=== PATIENT | female | born 1955 | race Caucasian/White ===

== ENCOUNTER 2019-07-26 12:36 | Inpatient (IN) | payer MEDICARE, OTHER ==
[~2019-07-26] VITALS: Ht 165.1 cm; Wt 122.0 kg
--- OUTSIDE RECORDS SUMMARY | 2019-07-26 12:40 | XMS REPORT ---
Author Author [facility] Organization [facility] Address Unknown Phone Unavailable Care Team Providers Care Driller Multiple Spindle Name Role Phone Unavailable Unavailable Payers Payer Name Policy Type Policy Number Effective Date Expiration D ate Problems This patient has no known problems. Allergies, Adverse Reactions, Alerts Allergy Name Allergy Type Status Severity Reaction(s) Onset Date Inacti ve Date Treating Clinician Comments sulfamethoxazole DA Active SV 2019-05-05 00:00:00 trimethoprim DA Active SV 2019-05-05 00:00:00 No Known Allergies DA Active U 2019-05-03 00:00:00 Medications This patient has no known medications. Encounters Start Date/Time End Date/Time [facility] ID 2019-01-05 06:54:00 2019-01-05 06:54:00 Outpatient [facility] [id number] Results Test Description Test Time Test Comments Text Results Atomic Results Result Comments CBC W/MANUAL DIFF 2019-05-11 03:50:00 WHITE BLOOD CELL (test code = WBC) 10.2 K/mm3 4.5-12.5 RED BLOOD CELL (test code = RBC) 3.76 mill/mm3 3.7-5.2 HEMOGLOBIN (test code = HGB) 8.7 gram/dL 11.5-15.5 HEMATOCRIT (test code = HCT) 29.8 % 36.0-46.0 MEAN CELL VOLUME (test code = MCV) 79.3 fL 80-98 MEAN CELL HGB (test code = MCH) 23.1 picogram 27.0-33.0 MEAN CELL HGB CONCETRATION (test code = MCHC) 29.2 gram/dL 33 .0-36.0 RED CELL DISTRIBUTION WIDTH (test code = RDW) 18.4 % 11 .6-16.2 RED CELL DISTRIBUTION WIDTH SD (test code = RDW-SD) 51.4 fL 37.0-51.0 PLATELET COUNT (test code = PLT) 310 K/mm3 150-450 RESULT VERIFIED BY REPEAT ANALYSIS MEAN PLATELET VOLUME (test code = MPV) 10.4 fL 6.7-11.0 IMMATURE GRANULOCYTE % (test code = IG%) 7.2 % 0.0-5.0 "The appearance of immature granulocytes (myelocytes,pro-myelocytes, meta-myelocytes) in the peripheral blood ofnon- individuals can indicate a response toinfection, inflammation, or other stimulus to the bonemarrow" NUCLEATED RBC % (test code = NRBC%) 0.0 % 0-0 NEUTROPHIL # (test code = NT#) 6.60 K/mm3 1.8-7.7 IMMATURE GRANULOCYTE # (test code = IG#) 0.74 x10 3/uL 0-0.03 LYMPHOCYTE # (test code = LY#) 1.52 K/mm3 1.0-5.0 MONOCYTE # (test code = MO#) 0.97 K/mm3 0-0.8 EOSINOPHIL # (test code = EO#) 0.36 K/mm3 0.0-0.5 BASOPHIL # (test code = BA#) 0.03 K/mm3 0.0-0.2 NUCLEATED RBC # (test code = NRBC#) 0.00 K/mm3 0.0-0.1 MANUAL DIFF REQUIRED (test code = MDIFF) YES STAIN ACCEPTABILITY (test code = STN ACCEPTABLE) STAIN ACCEPTABL E TOTAL CELLS COUNTED (test code = TCC) 114 #CELLS SEGMENTED NEUTROPHILS (test code = SEG) 72.8 % 39-69 BAND NEUTROPHIL (test code = BAND) 0 % 0-10 LYMPHOCYTE (test code = LYMPH) 14.0 % 25-55 REACTIVE LYMPH (test code = RELYMPH) 1.8 % MONOCYTE (test code = MON) 6.1 % 0-10 EOSINOPHIL (test code = EOS) 2.6 % 0.0-5.0 BASOPHIL (test code = BASO) 0.9 % 0-1.0 METAMYELOCYTE (test code = META) 0.9 % 0-0 MYELOCYTE (test code = MYELO) 0.9 % 0.0-0.0 PROMYELOCYTE (test code = PROM) 0 % 0-0 MORPHOLOGY COMMENT (test code = MOC) NORMAL PLATELET ESTIMATE (test code = PLTEST) ADEQUATE PLATELET MORPHOLOGY (test code = PLTMORPH) NORMAL IMMATURE FORMS (test code = IMMAT) 0 % 0-0 BASIC METABOLIC [id number] 03:30:00* Test Item Value Reference Range Comments SODIUM (test code = NA) 142 mmol/L 136-145 POTASSIUM (test code = K) 4.5 mmol/L 3.5-5.1 CHLORIDE (test code = CL) 109.0 mmol/L 98-107 CARBON DIOXIDE (test code = CO2) 25.0 mmol/L 21-32 ANION GAP (test code = GAP) 12.5 10-20 GLUCOSE (test code = GLU) 96 mg/dL 74-106 BLOOD UREA NITROGEN (test code = BUN) 46 mg/dL 7-18 GLOMERULAR FILTRATION RATE (test code = GFR) 25 mL/min >=6 0 Estimated GFR by using Modified MDRD formula.Chronic kidney disease is defined as either kidney damageor GFR <60 mL/min/1.73 m2 for >3 months. CREATININE (test code = CREAT) 2.00 mg/dL 0.55-1.02 * *Note change in reference range due to change in reagent. BUN/CREATININE RATIO (test code = BUN/CREA) 23.0 10-2 0 CALCIUM (test code = CA) 9.1 mg/dL 8.5-10.1 [id number] 03:30:00* Test Item Value Reference Range Comments PHOSPHORUS (test code = PHOS) 3.1 mg/dL 2.5-4.9 [id number] 03:30:00* Test Item Value Reference Range Comments MAGNESIUM (test code = MAG) 2.4 mg/dL 1.8-2.4 CALCIUM [id number] 03:30:00* Test Item Value Reference Range Comments CALCIUM IONIZED (test code = MINDY) 1.27 mmol/L 1.12-1.32 BASIC METABOLIC [id number] 03:26:00* Test Item Value Reference Range Comments SODIUM (test code = NA) 142 mmol/L 136-145 POTASSIUM (test code = K) 4.5 mmol/L 3.5-5.1 CHLORIDE (test code = CL) 109.0 mmol/L 98-107 CARBON DIOXIDE (test code = CO2) mmol/L 21-32 ANION GAP (test code = GAP) 10-20 GLUCOSE (test code = GLU) mg/dL 74-106 BLOOD UREA NITROGEN (test code = BUN) mg/dL 7-18 GLOMERULAR FILTRATION RATE (test code = GFR) mL/min >=6 0 CREATININE (test code = CREAT) mg/dL 0.55-1.02 BUN/CREATININE RATIO (test code = BUN/CREA) 10-2 0 CALCIUM (test code = CA) mg/dL 8.5-10.1 [id number] 03:26:00* Test Item Value Reference Range Comments PHOSPHORUS (test code = PHOS) mg/dL 2.5-4.9 [id number] 03:26:00* Test Item Value Reference Range Comments MAGNESIUM (test code = MAG) mg/dL 1.8-2.4 CALCIUM [id number] 03:26:00* Test Item Value Reference Range Comments CALCIUM IONIZED (test code = MINDY) 1.27 mmol/L 1.12-1.32 CBC W/MANUAL [id number] 03:24:00* Test Item Value Reference Range Comments WHITE BLOOD CELL (test code = WBC) 10.2 K/mm3 4.5-12.5 RED BLOOD CELL (test code = RBC) 3.76 mill/mm3 3.7-5.2 HEMOGLOBIN (test code = HGB) 8.7 gram/dL 11.5-15.5 HEMATOCRIT (test code = HCT) 29.8 % 36.0-46.0 MEAN CELL VOLUME (test code = MCV) 79.3 fL 80-98 MEAN CELL HGB (test code = MCH) 23.1 picogram 27.0-33.0 MEAN CELL HGB CONCETRATION (test code = MCHC) 29.2 gram/dL 33 .0-36.0 RED CELL DISTRIBUTION WIDTH (test code = RDW) 18.4 % 11 .6-16.2 RED CELL DISTRIBUTION WIDTH SD (test code = RDW-SD) 51.4 fL 37.0-51.0 PLATELET COUNT (test code = PLT) 310 K/mm3 150-450 RESULT VERIFIED BY REPEAT ANALYSIS MEAN PLATELET VOLUME (test code = MPV) 10.4 fL 6.7-11.0 IMMATURE GRANULOCYTE % (test code = IG%) 7.2 % 0.0-5.0 "The appearance of immature granulocytes (myelocytes,pro-myelocytes, meta-myelocytes) in the peripheral blood ofnon- individuals can indicate a response toinfection, inflammation, or other stimulus to the bonemarrow" NUCLEATED RBC % (test code = NRBC%) 0.0 % 0-0 NEUTROPHIL # (test code = NT#) 6.60 K/mm3 1.8-7.7 IMMATURE GRANULOCYTE # (test code = IG#) 0.74 x10 3/uL 0-0.03 LYMPHOCYTE # (test code = LY#) 1.52 K/mm3 1.0-5.0 MONOCYTE # (test code = MO#) 0.97 K/mm3 0-0.8 EOSINOPHIL # (test code = EO#) 0.36 K/mm3 0.0-0.5 BASOPHIL # (test code = BA#) 0.03 K/mm3 0.0-0.2 NUCLEATED RBC # (test code = NRBC#) 0.00 K/mm3 0.0-0.1 MANUAL DIFF REQUIRED (test code = MDIFF) YES STAIN ACCEPTABILITY (test code = STN ACCEPTABLE) TOTAL CELLS COUNTED (test code = TCC) #CELLS SEGMENTED NEUTROPHILS (test code = SEG) % 39-69 LYMPHOCYTE (test code = LYMPH) % 25-55 MONOCYTE (test code = MON) % 0-10 EOSINOPHIL (test code = EOS) % 0.0-5.0 CABOT RINGS (test code = CAB) MORPHOLOGY COMMENT (test code = MOC) PLATELET ESTIMATE (test code = PLTEST) PLATELET MORPHOLOGY (test code = PLTMORPH) CBC W/MANUAL [id number] 03:24:00* Test Item Value Reference Range Comments WHITE BLOOD CELL (test code = WBC) 10.2 K/mm3 4.5-12.5 RED BLOOD CELL (test code = RBC) 3.76 mill/mm3 3.7-5.2 HEMOGLOBIN (test code = HGB) 8.7 gram/dL 11.5-15.5 HEMATOCRIT (test code = HCT) 29.8 % 36.0-46.0 MEAN CELL VOLUME (test code = MCV) 79.3 fL 80-98 MEAN CELL HGB (test code = MCH) 23.1 picogram 27.0-33.0 MEAN CELL HGB CONCETRATION (test code = MCHC) 29.2 gram/dL 33 .0-36.0 RED CELL DISTRIBUTION WIDTH (test code = RDW) 18.4 % 11 .6-16.2 RED CELL DISTRIBUTION WIDTH SD (test code = RDW-SD) 51.4 fL 37.0-51.0 PLATELET COUNT (test code = PLT) 310 K/mm3 150-450 RESULT VERIFIED BY REPEAT ANALYSIS MEAN PLATELET VOLUME (test code = MPV) 10.4 fL 6.7-11.0 IMMATURE GRANULOCYTE % (test code = IG%) 7.2 % 0.0-5.0 "The appearance of immature granulocytes (myelocytes,pro-myelocytes, meta-myelocytes) in the peripheral blood ofnon- individuals can indicate a response toinfection, inflammation, or other stimulus to the bonemarrow" NUCLEATED RBC % (test code = NRBC%) 0.0 % 0-0 NEUTROPHIL # (test code = NT#) 6.60 K/mm3 1.8-7.7 IMMATURE GRANULOCYTE # (test code = IG#) 0.74 x10 3/uL 0-0.03 LYMPHOCYTE # (test code = LY#) 1.52 K/mm3 1.0-5.0 MONOCYTE # (test code = MO#) 0.97 K/mm3 0-0.8 EOSINOPHIL # (test code = EO#) 0.36 K/mm3 0.0-0.5 BASOPHIL # (test code = BA#) 0.03 K/mm3 0.0-0.2 NUCLEATED RBC # (test code = NRBC#) 0.00 K/mm3 0.0-0.1 MANUAL DIFF REQUIRED (test code = MDIFF) YES STAIN ACCEPTABILITY (test code = STN ACCEPTABLE) TOTAL CELLS COUNTED (test code = TCC) #CELLS SEGMENTED NEUTROPHILS (test code = SEG) % 39-69 LYMPHOCYTE (test code = LYMPH) % 25-55 MONOCYTE (test code = MON) % 0-10 EOSINOPHIL (test code = EOS) % 0.0-5.0 CABOT RINGS (test code = CAB) MORPHOLOGY COMMENT (test code = MOC) PLATELET ESTIMATE (test code = PLTEST) PLATELET MORPHOLOGY (test code = PLTMORPH) CBC W/MANUAL [id number] 03:24:00* Test Item Value Reference Range Comments WHITE BLOOD CELL (test code = WBC) 10.2 K/mm3 4.5-12.5 RED BLOOD CELL (test code = RBC) 3.76 mill/mm3 3.7-5.2 HEMOGLOBIN (test code = HGB) 8.7 gram/dL 11.5-15.5 HEMATOCRIT (test code = HCT) 29.8 % 36.0-46.0 MEAN CELL VOLUME (test code = MCV) 79.3 fL 80-98 MEAN CELL HGB (test code = MCH) 23.1 picogram 27.0-33.0 MEAN CELL HGB CONCETRATION (test code = MCHC) 29.2 gram/dL 33 .0-36.0 RED CELL DISTRIBUTION WIDTH (test code = RDW) 18.4 % 11 .6-16.2 RED CELL DISTRIBUTION WIDTH SD (test code = RDW-SD) 51.4 fL 37.0-51.0 PLATELET COUNT (test code = PLT) 310 K/mm3 150-450 RESULT VERIFIED BY REPEAT ANALYSIS MEAN PLATELET VOLUME (test code = MPV) 10.4 fL 6.7-11.0 IMMATURE GRANULOCYTE % (test code = IG%) 7.2 % 0.0-5.0 "The appearance of immature granulocytes (myelocytes,pro-myelocytes, meta-myelocytes) in the peripheral blood ofnon- individuals can indicate a response toinfection, inflammation, or other stimulus to the bonemarrow" NUCLEATED RBC % (test code = NRBC%) 0.0 % 0-0 NEUTROPHIL # (test code = NT#) 6.60 K/mm3 1.8-7.7 IMMATURE GRANULOCYTE # (test code = IG#) 0.74 x10 3/uL 0-0.03 LYMPHOCYTE # (test code = LY#) 1.52 K/mm3 1.0-5.0 MONOCYTE # (test code = MO#) 0.97 K/mm3 0-0.8 EOSINOPHIL # (test code = EO#) 0.36 K/mm3 0.0-0.5 BASOPHIL # (test code = BA#) 0.03 K/mm3 0.0-0.2 NUCLEATED RBC # (test code = NRBC#) 0.00 K/mm3 0.0-0.1 MANUAL DIFF REQUIRED (test code = MDIFF) YES STAIN ACCEPTABILITY (test code = STN ACCEPTABLE) TOTAL CELLS COUNTED (test code = TCC) #CELLS SEGMENTED NEUTROPHILS (test code = SEG) % 39-69 LYMPHOCYTE (test code = LYMPH) % 25-55 MONOCYTE (test code = MON) % 0-10 EOSINOPHIL (test code = EOS) % 0.0-5.0 MORPHOLOGY COMMENT (test code = MOC) PLATELET ESTIMATE (test code = PLTEST) PLATELET MORPHOLOGY (test code = PLTMORPH) CBC W/MANUAL [id number] 03:24:00* Test Item Value Reference Range Comments WHITE BLOOD CELL (test code = WBC) 10.2 K/mm3 4.5-12.5 RED BLOOD CELL (test code = RBC) 3.76 mill/mm3 3.7-5.2 HEMOGLOBIN (test code = HGB) 8.7 gram/dL 11.5-15.5 HEMATOCRIT (test code = HCT) 29.8 % 36.0-46.0 MEAN CELL VOLUME (test code = MCV) 79.3 fL 80-98 MEAN CELL HGB (test code = MCH) 23.1 picogram 27.0-33.0 MEAN CELL HGB CONCETRATION (test code = MCHC) 29.2 gram/dL 33 .0-36.0 RED CELL DISTRIBUTION WIDTH (test code = RDW) 18.4 % 11 .6-16.2 RED CELL DISTRIBUTION WIDTH SD (test code = RDW-SD) 51.4 fL 37.0-51.0 PLATELET COUNT (test code = PLT) 310 K/mm3 150-450 RESULT VERIFIED BY REPEAT ANALYSIS MEAN PLATELET VOLUME (test code = MPV) 10.4 fL 6.7-11.0 IMMATURE GRANULOCYTE % (test code = IG%) 7.2 % 0.0-5.0 "The appearance of immature granulocytes (myelocytes,pro-myelocytes, meta-myelocytes) in the peripheral blood ofnon- individuals can indicate a response toinfection, inflammation, or other stimulus to the bonemarrow" NUCLEATED RBC % (test code = NRBC%) 0.0 % 0-0 NEUTROPHIL # (test code = NT#) 6.60 K/mm3 1.8-7.7 IMMATURE GRANULOCYTE # (test code = IG#) 0.74 x10 3/uL 0-0.03 LYMPHOCYTE # (test code = LY#) 1.52 K/mm3 1.0-5.0 MONOCYTE # (test code = MO#) 0.97 K/mm3 0-0.8 EOSINOPHIL # (test code = EO#) 0.36 K/mm3 0.0-0.5 BASOPHIL # (test code = BA#) 0.03 K/mm3 0.0-0.2 NUCLEATED RBC # (test code = NRBC#) 0.00 K/mm3 0.0-0.1 MANUAL DIFF REQUIRED (test code = MDIFF) YES STAIN ACCEPTABILITY (test code = STN ACCEPTABLE) TOTAL CELLS COUNTED (test code = TCC) #CELLS SEGMENTED NEUTROPHILS (test code = SEG) % 39-69 LYMPHOCYTE (test code = LYMPH) % 25-55 MONOCYTE (test code = MON) % 0-10 MORPHOLOGY COMMENT (test code = MOC) PLATELET ESTIMATE (test code = PLTEST) PLATELET MORPHOLOGY (test code = PLTMORPH) CBC W/MANUAL [id number] 03:24:00* Test Item Value Reference Range Comments WHITE BLOOD CELL (test code = WBC) 10.2 K/mm3 4.5-12.5 RED BLOOD CELL (test code = RBC) 3.76 mill/mm3 3.7-5.2 HEMOGLOBIN (test code = HGB) 8.7 gram/dL 11.5-15.5 HEMATOCRIT (test code = HCT) 29.8 % 36.0-46.0 MEAN CELL VOLUME (test code = MCV) 79.3 fL 80-98 MEAN CELL HGB (test code = MCH) 23.1 picogram 27.0-33.0 MEAN CELL HGB CONCETRATION (test code = MCHC) 29.2 gram/dL 33 .0-36.0 RED CELL DISTRIBUTION WIDTH (test code = RDW) 18.4 % 11 .6-16.2 RED CELL DISTRIBUTION WIDTH SD (test code = RDW-SD) 51.4 fL 37.0-51.0 PLATELET COUNT (test code = PLT) 310 K/mm3 150-450 RESULT VERIFIED BY REPEAT ANALYSIS MEAN PLATELET VOLUME (test code = MPV) 10.4 fL 6.7-11.0 IMMATURE GRANULOCYTE % (test code = IG%) 7.2 % 0.0-5.0 "The appearance of immature granulocytes (myelocytes,pro-myelocytes, meta-myelocytes) in the peripheral blood ofnon- individuals can indicate a response toinfection, inflammation, or other stimulus to the bonemarrow" NUCLEATED RBC % (test code = NRBC%) 0.0 % 0-0 NEUTROPHIL # (test code = NT#) 6.60 K/mm3 1.8-7.7 IMMATURE GRANULOCYTE # (test code = IG#) 0.74 x10 3/uL 0-0.03 LYMPHOCYTE # (test code = LY#) 1.52 K/mm3 1.0-5.0 MONOCYTE # (test code = MO#) 0.97 K/mm3 0-0.8 EOSINOPHIL # (test code = EO#) 0.36 K/mm3 0.0-0.5 BASOPHIL # (test code = BA#) 0.03 K/mm3 0.0-0.2 NUCLEATED RBC # (test code = NRBC#) 0.00 K/mm3 0.0-0.1 MANUAL DIFF REQUIRED (test code = MDIFF) YES STAIN ACCEPTABILITY (test code = STN ACCEPTABLE) TOTAL CELLS COUNTED (test code = TCC) #CELLS SEGMENTED NEUTROPHILS (test code = SEG) % 39-69 LYMPHOCYTE (test code = LYMPH) % 25-55 MONOCYTE (test code = MON) % 0-10 EOSINOPHIL (test code = EOS) % 0.0-5.0 CABOT RINGS (test code = CAB) MORPHOLOGY COMMENT (test code = MOC) PLATELET ESTIMATE (test code = PLTEST) PLATELET MORPHOLOGY (test code = PLTMORPH) BASIC METABOLIC [id number] 03:20:00* Test Item Value Reference Range Comments SODIUM (test code = NA) mmol/L 136-145 POTASSIUM (test code = K) mmol/L 3.5-5.1 CHLORIDE (test code = CL) mmol/L 98-107 CARBON DIOXIDE (test code = CO2) mmol/L 21-32 ANION GAP (test code = GAP) 10-20 GLUCOSE (test code = GLU) mg/dL 74-106 BLOOD UREA NITROGEN (test code = BUN) mg/dL 7-18 GLOMERULAR FILTRATION RATE (test code = GFR) mL/min >=6 0 CREATININE (test code = CREAT) mg/dL 0.55-1.02 BUN/CREATININE RATIO (test code = BUN/CREA) 10-2 0 CALCIUM (test code = CA) mg/dL 8.5-10.1 [id number] 03:20:00* Test Item Value Reference Range Comments PHOSPHORUS (test code = PHOS) mg/dL 2.5-4.9 [id number] 03:20:00* Test Item Value Reference Range Comments MAGNESIUM (test code = MAG) mg/dL 1.8-2.4 CALCIUM [id number] 03:20:00* Test Item Value Reference Range Comments CALCIUM IONIZED (test code = MINDY) 1.27 mmol/L 1.12-1.32 CBC W/AUTO [id number] 04:02:00* Test Item Value Reference Range Comments WHITE BLOOD CELL (test code = WBC) 9.3 K/mm3 4.5-12.5 RED BLOOD CELL (test code = RBC) 3.84 mill/mm3 3.7-5.2 HEMOGLOBIN (test code = HGB) 8.9 gram/dL 11.5-15.5 HEMATOCRIT (test code = HCT) 30.2 % 36.0-46.0 MEAN CELL VOLUME (test code = MCV) 78.6 fL 80-98 MEAN CELL HGB (test code = MCH) 23.2 picogram 27.0-33.0 MEAN CELL HGB CONCETRATION (test code = MCHC) 29.5 gram/dL 33 .0-36.0 RED CELL DISTRIBUTION WIDTH (test code = RDW) 17.8 % 11 .6-16.2 RED CELL DISTRIBUTION WIDTH SD (test code = RDW-SD) 50.6 fL 37.0-51.0 PLATELET COUNT (test code = PLT) 250 K/mm3 150-450 RESULT VERIFIED BY REPEAT ANALYSIS MEAN PLATELET VOLUME (test code = MPV) 10.9 fL 6.7-11.0 NEUTROPHIL % (test code = NT%) 61.5 % 39.0-69.0 IMMATURE GRANULOCYTE % (test code = IG%) 7.4 % 0.0-5.0 "The appearance of immature granulocytes (myelocytes,pro-myelocytes, meta-myelocytes) in the peripheral blood ofnon- individuals can indicate a response toinfection, inflammation, or other stimulus to the bonemarrow" LYMPHOCYTE % (test code = LY%) 15.3 % 25.0-55.0 MONOCYTE % (test code = MO%) 11.7 % 0.0-10.0 EOSINOPHIL % (test code = EO%) 3.6 % 0.0-5.0 BASOPHIL % (test code = BA%) 0.5 % 0.0-1.0 NUCLEATED RBC % (test code = NRBC%) 0.0 % 0-0 NEUTROPHIL # (test code = NT#) 5.72 K/mm3 1.8-7.7 IMMATURE GRANULOCYTE # (test code = IG#) 0.69 x10 3/uL 0-0.03 LYMPHOCYTE # (test code = LY#) 1.43 K/mm3 1.0-5.0 MONOCYTE # (test code = MO#) 1.09 K/mm3 0-0.8 EOSINOPHIL # (test code = EO#) 0.34 K/mm3 0.0-0.5 BASOPHIL # (test code = BA#) 0.05 K/mm3 0.0-0.2 NUCLEATED RBC # (test code = NRBC#) 0.00 K/mm3 0.0-0.1 MANUAL DIFF REQUIRED (test code = MDIFF) NO, ONLY SCAN NEEDED DIFFERENTIAL [id number] 04:02:00* Test Item Value Reference Range Comments STAIN ACCEPTABILITY (test code = STN ACCEPTABLE) STAIN ACCEPTABL E ANISOCYTOSIS (test code = ANISO) 1+ MICROCYTOSIS (test code = MICR) 1+ MORPHOLOGY COMMENT (test code = MOC) TEST NOT PERFORMED PLATELET ESTIMATE (test code = PLTEST) ADEQUATE PLATELET MORPHOLOGY (test code = PLTMORPH) NORMAL BASIC METABOLIC [id number] 02:53:00* Test Item Value Reference Range Comments SODIUM (test code = NA) 141 mmol/L 136-145 POTASSIUM (test code = K) 4.2 mmol/L 3.5-5.1 CHLORIDE (test code = CL) 107.0 mmol/L 98-107 CARBON DIOXIDE (test code = CO2) 26.0 mmol/L 21-32 ANION GAP (test code = GAP) 12.2 10-20 GLUCOSE (test code = GLU) 106 mg/dL 74-106 BLOOD UREA NITROGEN (test code = BUN) 47 mg/dL 7-18 GLOMERULAR FILTRATION RATE (test code = GFR) 27 mL/min >=6 0 Estimated GFR by using Modified MDRD formula.Chronic kidney disease is defined as either kidney damageor GFR <60 mL/min/1.73 m2 for >3 months. CREATININE (test code = CREAT) 1.90 mg/dL 0.55-1.02 * *Note change in reference range due to change in reagent. BUN/CREATININE RATIO (test code = BUN/CREA) 24.7 10-2 0 CALCIUM (test code = CA) 9.0 mg/dL 8.5-10.1 [id number] 02:53:00* Test Item Value Reference Range Comments PHOSPHORUS (test code = PHOS) 3.2 mg/dL 2.5-4.9 [id number] 02:53:00* Test Item Value Reference Range Comments MAGNESIUM (test code = MAG) 2.4 mg/dL 1.8-2.4 CALCIUM [id number] 02:53:00* Test Item Value Reference Range Comments CALCIUM IONIZED (test code = MINDY) 1.28 mmol/L 1.12-1.32 CBC W/AUTO [id number] 02:52:00* Test Item Value Reference Range Comments WHITE BLOOD CELL (test code = WBC) 9.3 K/mm3 4.5-12.5 RED BLOOD CELL (test code = RBC) 3.84 mill/mm3 3.7-5.2 HEMOGLOBIN (test code = HGB) 8.9 gram/dL 11.5-15.5 HEMATOCRIT (test code = HCT) 30.2 % 36.0-46.0 MEAN CELL VOLUME (test code = MCV) 78.6 fL 80-98 MEAN CELL HGB (test code = MCH) 23.2 picogram 27.0-33.0 MEAN CELL HGB CONCETRATION (test code = MCHC) 29.5 gram/dL 33 .0-36.0 RED CELL DISTRIBUTION WIDTH (test code = RDW) 17.8 % 11 .6-16.2 RED CELL DISTRIBUTION WIDTH SD (test code = RDW-SD) 50.6 fL 37.0-51.0 PLATELET COUNT (test code = PLT) 250 K/mm3 150-450 RESULT VERIFIED BY REPEAT ANALYSIS MEAN PLATELET VOLUME (test code = MPV) 10.9 fL 6.7-11.0 NEUTROPHIL % (test code = NT%) 61.5 % 39.0-69.0 IMMATURE GRANULOCYTE % (test code = IG%) 7.4 % 0.0-5.0 "The appearance of immature granulocytes (myelocytes,pro-myelocytes, meta-myelocytes) in the peripheral blood ofnon- individuals can indicate a response toinfection, inflammation, or other stimulus to the bonemarrow" LYMPHOCYTE % (test code = LY%) 15.3 % 25.0-55.0 MONOCYTE % (test code = MO%) 11.7 % 0.0-10.0 EOSINOPHIL % (test code = EO%) 3.6 % 0.0-5.0 BASOPHIL % (test code = BA%) 0.5 % 0.0-1.0 NUCLEATED RBC % (test code = NRBC%) 0.0 % 0-0 NEUTROPHIL # (test code = NT#) 5.72 K/mm3 1.8-7.7 IMMATURE GRANULOCYTE # (test code = IG#) 0.69 x10 3/uL 0-0.03 LYMPHOCYTE # (test code = LY#) 1.43 K/mm3 1.0-5.0 MONOCYTE # (test code = MO#) 1.09 K/mm3 0-0.8 EOSINOPHIL # (test code = EO#) 0.34 K/mm3 0.0-0.5 BASOPHIL # (test code = BA#) 0.05 K/mm3 0.0-0.2 NUCLEATED RBC # (test code = NRBC#) 0.00 K/mm3 0.0-0.1 MANUAL DIFF REQUIRED (test code = MDIFF) NO, ONLY SCAN NEEDED DIFFERENTIAL [id number] 02:52:00* Test Item Value Reference Range Comments STAIN ACCEPTABILITY (test code = STN ACCEPTABLE) CABOT RINGS (test code = CAB) MORPHOLOGY COMMENT (test code = MOC) PLATELET ESTIMATE (test code = PLTEST) PLATELET MORPHOLOGY (test code = PLTMORPH) CBC W/AUTO [id number] 02:52:00* Test Item Value Reference Range Comments WHITE BLOOD CELL (test code = WBC) 9.3 K/mm3 4.5-12.5 RED BLOOD CELL (test code = RBC) 3.84 mill/mm3 3.7-5.2 HEMOGLOBIN (test code = HGB) 8.9 gram/dL 11.5-15.5 HEMATOCRIT (test code = HCT) 30.2 % 36.0-46.0 MEAN CELL VOLUME (test code = MCV) 78.6 fL 80-98 MEAN CELL HGB (test code = MCH) 23.2 picogram 27.0-33.0 MEAN CELL HGB CONCETRATION (test code = MCHC) 29.5 gram/dL 33 .0-36.0 RED CELL DISTRIBUTION WIDTH (test code = RDW) 17.8 % 11 .6-16.2 RED CELL DISTRIBUTION WIDTH SD (test code = RDW-SD) 50.6 fL 37.0-51.0 PLATELET COUNT (test code = PLT) 250 K/mm3 150-450 RESULT VERIFIED BY REPEAT ANALYSIS MEAN PLATELET VOLUME (test code = MPV) 10.9 fL 6.7-11.0 NEUTROPHIL % (test code = NT%) 61.5 % 39.0-69.0 IMMATURE GRANULOCYTE % (test code = IG%) 7.4 % 0.0-5.0 "The appearance of immature granulocytes (myelocytes,pro-myelocytes, meta-myelocytes) in the peripheral blood ofnon- individuals can indicate a response toinfection, inflammation, or other stimulus to the bonemarrow" LYMPHOCYTE % (test code = LY%) 15.3 % 25.0-55.0 MONOCYTE % (test code = MO%) 11.7 % 0.0-10.0 EOSINOPHIL % (test code = EO%) 3.6 % 0.0-5.0 BASOPHIL % (test code = BA%) 0.5 % 0.0-1.0 NUCLEATED RBC % (test code = NRBC%) 0.0 % 0-0 NEUTROPHIL # (test code = NT#) 5.72 K/mm3 1.8-7.7 IMMATURE GRANULOCYTE # (test code = IG#) 0.69 x10 3/uL 0-0.03 LYMPHOCYTE # (test code = LY#) 1.43 K/mm3 1.0-5.0 MONOCYTE # (test code = MO#) 1.09 K/mm3 0-0.8 EOSINOPHIL # (test code = EO#) 0.34 K/mm3 0.0-0.5 BASOPHIL # (test code = BA#) 0.05 K/mm3 0.0-0.2 NUCLEATED RBC # (test code = NRBC#) 0.00 K/mm3 0.0-0.1 MANUAL DIFF REQUIRED (test code = MDIFF) NO, ONLY SCAN NEEDED DIFFERENTIAL [id number] 02:52:00* Test Item Value Reference Range Comments STAIN ACCEPTABILITY (test code = STN ACCEPTABLE) MORPHOLOGY COMMENT (test code = MOC) PLATELET ESTIMATE (test code = PLTEST) PLATELET MORPHOLOGY (test code = PLTMORPH) CBC W/AUTO [id number] 02:51:00* Test Item Value Reference Range Comments WHITE BLOOD CELL (test code = WBC) 9.3 K/mm3 4.5-12.5 RED BLOOD CELL (test code = RBC) 3.84 mill/mm3 3.7-5.2 HEMOGLOBIN (test code = HGB) 8.9 gram/dL 11.5-15.5 HEMATOCRIT (test code = HCT) 30.2 % 36.0-46.0 MEAN CELL VOLUME (test code = MCV) 78.6 fL 80-98 MEAN CELL HGB (test code = MCH) 23.2 picogram 27.0-33.0 MEAN CELL HGB CONCETRATION (test code = MCHC) 29.5 gram/dL 33 .0-36.0 RED CELL DISTRIBUTION WIDTH (test code = RDW) 17.8 % 11 .6-16.2 RED CELL DISTRIBUTION WIDTH SD (test code = RDW-SD) 50.6 fL 37.0-51.0 PLATELET COUNT (test code = PLT) 250 K/mm3 150-450 RESULT VERIFIED BY REPEAT ANALYSIS MEAN PLATELET VOLUME (test code = MPV) 10.9 fL 6.7-11.0 NEUTROPHIL % (test code = NT%) 61.5 % 39.0-69.0 IMMATURE GRANULOCYTE % (test code = IG%) 7.4 % 0.0-5.0 "The appearance of immature granulocytes (myelocytes,pro-myelocytes, meta-myelocytes) in the peripheral blood ofnon- individuals can indicate a response toinfection, inflammation, or other stimulus to the bonemarrow" LYMPHOCYTE % (test code = LY%) 15.3 % 25.0-55.0 MONOCYTE % (test code = MO%) 11.7 % 0.0-10.0 EOSINOPHIL % (test code = EO%) 3.6 % 0.0-5.0 BASOPHIL % (test code = BA%) 0.5 % 0.0-1.0 NUCLEATED RBC % (test code = NRBC%) 0.0 % 0-0 NEUTROPHIL # (test code = NT#) 5.72 K/mm3 1.8-7.7 IMMATURE GRANULOCYTE # (test code = IG#) 0.69 x10 3/uL 0-0.03 LYMPHOCYTE # (test code = LY#) 1.43 K/mm3 1.0-5.0 MONOCYTE # (test code = MO#) 1.09 K/mm3 0-0.8 EOSINOPHIL # (test code = EO#) 0.34 K/mm3 0.0-0.5 BASOPHIL # (test code = BA#) 0.05 K/mm3 0.0-0.2 NUCLEATED RBC # (test code = NRBC#) 0.00 K/mm3 0.0-0.1 MANUAL DIFF REQUIRED (test code = MDIFF) NO, ONLY SCAN NEEDED DIFFERENTIAL [id number] 02:51:00* Test Item Value Reference Range Comments STAIN ACCEPTABILITY (test code = STN ACCEPTABLE) CABOT RINGS (test code = CAB) MORPHOLOGY COMMENT (test code = MOC) PLATELET ESTIMATE (test code = PLTEST) PLATELET MORPHOLOGY (test code = PLTMORPH) CBC W/AUTO [id number] 02:51:00* Test Item Value Reference Range Comments WHITE BLOOD CELL (test code = WBC) 9.3 K/mm3 4.5-12.5 RED BLOOD CELL (test code = RBC) 3.84 mill/mm3 3.7-5.2 HEMOGLOBIN (test code = HGB) 8.9 gram/dL 11.5-15.5 HEMATOCRIT (test code = HCT) 30.2 % 36.0-46.0 MEAN CELL VOLUME (test code = MCV) 78.6 fL 80-98 MEAN CELL HGB (test code = MCH) 23.2 picogram 27.0-33.0 MEAN CELL HGB CONCETRATION (test code = MCHC) 29.5 gram/dL 33 .0-36.0 RED CELL DISTRIBUTION WIDTH (test code = RDW) 17.8 % 11 .6-16.2 RED CELL DISTRIBUTION WIDTH SD (test code = RDW-SD) 50.6 fL 37.0-51.0 PLATELET COUNT (test code = PLT) 250 K/mm3 150-450 RESULT VERIFIED BY REPEAT ANALYSIS MEAN PLATELET VOLUME (test code = MPV) 10.9 fL 6.7-11.0 NEUTROPHIL % (test code = NT%) 61.5 % 39.0-69.0 IMMATURE GRANULOCYTE % (test code = IG%) 7.4 % 0.0-5.0 "The appearance of immature granulocytes (myelocytes,pro-myelocytes, meta-myelocytes) in the peripheral blood ofnon- individuals can indicate a response toinfection, inflammation, or other stimulus to the bonemarrow" LYMPHOCYTE % (test code = LY%) 15.3 % 25.0-55.0 MONOCYTE % (test code = MO%) 11.7 % 0.0-10.0 EOSINOPHIL % (test code = EO%) 3.6 % 0.0-5.0 BASOPHIL % (test code = BA%) 0.5 % 0.0-1.0 NUCLEATED RBC % (test code = NRBC%) 0.0 % 0-0 NEUTROPHIL # (test code = NT#) 5.72 K/mm3 1.8-7.7 IMMATURE GRANULOCYTE # (test code = IG#) 0.69 x10 3/uL 0-0.03 LYMPHOCYTE # (test code = LY#) 1.43 K/mm3 1.0-5.0 MONOCYTE # (test code = MO#) 1.09 K/mm3 0-0.8 EOSINOPHIL # (test code = EO#) 0.34 K/mm3 0.0-0.5 BASOPHIL # (test code = BA#) 0.05 K/mm3 0.0-0.2 NUCLEATED RBC # (test code = NRBC#) 0.00 K/mm3 0.0-0.1 MANUAL DIFF REQUIRED (test code = MDIFF) NO, ONLY SCAN NEEDED DIFFERENTIAL [id number] 02:51:00* Test Item Value Reference Range Comments STAIN ACCEPTABILITY (test code = STN ACCEPTABLE) CABOT RINGS (test code = CAB) MORPHOLOGY COMMENT (test code = MOC) PLATELET ESTIMATE (test code = PLTEST) PLATELET MORPHOLOGY (test code = PLTMORPH) BASIC METABOLIC [id number] 02:48:00* Test Item Value Reference Range Comments SODIUM (test code = NA) 141 mmol/L 136-145 POTASSIUM (test code = K) 4.2 mmol/L 3.5-5.1 CHLORIDE (test code = CL) 107.0 mmol/L 98-107 CARBON DIOXIDE (test code = CO2) mmol/L 21-32 ANION GAP (test code = GAP) 10-20 GLUCOSE (test code = GLU) mg/dL 74-106 BLOOD UREA NITROGEN (test code = BUN) mg/dL 7-18 GLOMERULAR FILTRATION RATE (test code = GFR) mL/min >=6 0 CREATININE (test code = CREAT) mg/dL 0.55-1.02 BUN/CREATININE RATIO (test code = BUN/CREA) 10-2 0 CALCIUM (test code = CA) mg/dL 8.5-10.1 [id number] 02:48:00* Test Item Value Reference Range Comments PHOSPHORUS (test code = PHOS) mg/dL 2.5-4.9 [id number] 02:48:00* Test Item Value Reference Range Comments MAGNESIUM (test code = MAG) mg/dL 1.8-2.4 CALCIUM [id number] 02:48:00* Test Item Value Reference Range Comments CALCIUM IONIZED (test code = MINDY) 1.28 mmol/L 1.12-1.32 BASIC METABOLIC [id number] 02:36:00* Test Item Value Reference Range Comments SODIUM (test code = NA) mmol/L 136-145 POTASSIUM (test code = K) mmol/L 3.5-5.1 CHLORIDE (test code = CL) mmol/L 98-107 CARBON DIOXIDE (test code = CO2) mmol/L 21-32 ANION GAP (test code = GAP) 10-20 GLUCOSE (test code = GLU) mg/dL 74-106 BLOOD UREA NITROGEN (test code = BUN) mg/dL 7-18 GLOMERULAR FILTRATION RATE (test code = GFR) mL/min >=6 0 CREATININE (test code = CREAT) mg/dL 0.55-1.02 BUN/CREATININE RATIO (test code = BUN/CREA) 10-2 0 CALCIUM (test code = CA) mg/dL 8.5-10.1 [id number] 02:36:00* Test Item Value Reference Range Comments PHOSPHORUS (test code = PHOS) mg/dL 2.5-4.9 [id number] 02:36:00* Test Item Value Reference Range Comments MAGNESIUM (test code = MAG) mg/dL 1.8-2.4 CALCIUM [id number] 02:36:00* Test Item Value Reference Range Comments CALCIUM IONIZED (test code = MINDY) 1.28 mmol/L 1.12-1.32 RENAL FUNCTION [id number] 04:39:00* Test Item Value Reference Range Comments SODIUM (test code = NA) 142 mmol/L 136-145 POTASSIUM (test code = K) 4.0 mmol/L 3.5-5.1 CHLORIDE (test code = CL) 105.0 mmol/L 98-107 CARBON DIOXIDE (test code = CO2) 30.0 mmol/L 21-32 ANION GAP (test code = GAP) 11.0 10-20 GLUCOSE (test code = GLU) 110 mg/dL 74-106 BLOOD UREA NITROGEN (test code = BUN) 51 mg/dL 7-18 CREATININE (test code = CREAT) 2.10 mg/dL 0.55-1.02 * *Note change in reference range due to change in reagent. ALBUMIN (test code = ALB) 2.8 g/dL 3.4-5.0 CALCIUM (test code = CA) 8.6 mg/dL 8.5-10.1 PHOSPHORUS (test code = PHOS) 3.8 mg/dL 2.5-4.9 CALCIUM [id number] 04:39:00* Test Item Value Reference Range Comments CALCIUM IONIZED (test code = MINDY) 1.26 mmol/L 1.12-1.32 CBC W/MANUAL [id number] 04:37:00* Test Item Value Reference Range Comments WHITE BLOOD CELL (test code = WBC) 8.1 K/mm3 4.5-12.5 RED BLOOD CELL (test code = RBC) 4.09 mill/mm3 3.7-5.2 HEMOGLOBIN (test code = HGB) 9.5 gram/dL 11.5-15.5 HEMATOCRIT (test code = HCT) 31.9 % 36.0-46.0 MEAN CELL VOLUME (test code = MCV) 78.0 fL 80-98 MEAN CELL HGB (test code = MCH) 23.2 picogram 27.0-33.0 MEAN CELL HGB CONCETRATION (test code = MCHC) 29.8 gram/dL 33 .0-36.0 RED CELL DISTRIBUTION WIDTH (test code = RDW) 17.6 % 11 .6-16.2 RED CELL DISTRIBUTION WIDTH SD (test code = RDW-SD) 49.4 fL 37.0-51.0 PLATELET COUNT (test code = PLT) 343 K/mm3 150-450 MEAN PLATELET VOLUME (test code = MPV) 10.0 fL 6.7-11.0 NEUTROPHIL % (test code = NT%) 57.5 % 39.0-69.0 IMMATURE GRANULOCYTE % (test code = IG%) 6.6 % 0.0-5.0 "The appearance of immature granulocytes (myelocytes,pro-myelocytes, meta-myelocytes) in the peripheral blood ofnon- individuals can indicate a response toinfection, inflammation, or other stimulus to the bonemarrow" LYMPHOCYTE % (test code = LY%) 18.3 % 25.0-55.0 MONOCYTE % (test code = MO%) 13.4 % 0.0-10.0 EOSINOPHIL % (test code = EO%) 3.8 % 0.0-5.0 BASOPHIL % (test code = BA%) 0.4 % 0.0-1.0 NUCLEATED RBC % (test code = NRBC%) 0.0 % 0-0 NEUTROPHIL # (test code = NT#) 4.67 K/mm3 1.8-7.7 IMMATURE GRANULOCYTE # (test code = IG#) 0.54 x10 3/uL 0-0.03 LYMPHOCYTE # (test code = LY#) 1.49 K/mm3 1.0-5.0 MONOCYTE # (test code = MO#) 1.09 K/mm3 0-0.8 EOSINOPHIL # (test code = EO#) 0.31 K/mm3 0.0-0.5 BASOPHIL # (test code = BA#) 0.03 K/mm3 0.0-0.2 NUCLEATED RBC # (test code = NRBC#) 0.00 K/mm3 0.0-0.1 MANUAL DIFF REQUIRED (test code = MDIFF) DIFF NEEDED STAIN ACCEPTABILITY (test code = STN ACCEPTABLE) STAIN ACCEPTABL E TOTAL CELLS COUNTED (test code = TCC) 114 #CELLS SEGMENTED NEUTROPHILS (test code = SEG) 67.8 % 39-69 BAND NEUTROPHIL (test code = BAND) 0 % 0-10 LYMPHOCYTE (test code = LYMPH) 14.8 % 25-55 REACTIVE LYMPH (test code = RELYMPH) 0 % MONOCYTE (test code = MON) 10.4 % 0-10 EOSINOPHIL (test code = EOS) 2.6 % 0.0-5.0 BASOPHIL (test code = BASO) 0 % 0-1.0 METAMYELOCYTE (test code = META) 0 % 0-0 MYELOCYTE (test code = MYELO) 4.4 % 0.0-0.0 PROMYELOCYTE (test code = PROM) 0 % 0-0 POLYCHROMASIA (test code = POLC) 2+ HYPOCHROMIA (test code = HYPO) 1+ BASOPHILIC STIPPLING (test code = STP) 1+ ANISOCYTOSIS (test code = ANISO) 1+ OVALOCYTES (test code = OVAL) 1+ MORPHOLOGY COMMENT (test code = MOC) TEST NOT PERFORMED PLATELET ESTIMATE (test code = PLTEST) ADEQUATE PLATELET MORPHOLOGY (test code = PLTMORPH) NORMAL IMMATURE FORMS (test code = IMMAT) 0 % 0-0 RENAL FUNCTION [id number] 04:20:00* Test Item Value Reference Range Comments SODIUM (test code = NA) 142 mmol/L 136-145 POTASSIUM (test code = K) 4.0 mmol/L 3.5-5.1 CHLORIDE (test code = CL) 105.0 mmol/L 98-107 CARBON DIOXIDE (test code = CO2) 30.0 mmol/L 21-32 ANION GAP (test code = GAP) 11.0 10-20 GLUCOSE (test code = GLU) 110 mg/dL 74-106 BLOOD UREA NITROGEN (test code = BUN) 51 mg/dL 7-18 CREATININE (test code = CREAT) 2.10 mg/dL 0.55-1.02 * *Note change in reference range due to change in reagent. ALBUMIN (test code = ALB) 2.8 g/dL 3.4-5.0 CALCIUM (test code = CA) 8.6 mg/dL 8.5-10.1 PHOSPHORUS (test code = PHOS) 3.8 mg/dL 2.5-4.9 CALCIUM [id number] 04:20:00* Test Item Value Reference Range Comments CALCIUM IONIZED (test code = MINDY) mmol/L 1.12-1.32 CBC W/MANUAL [id number] 03:50:00* Test Item Value Reference Range Comments WHITE BLOOD CELL (test code = WBC) 8.1 K/mm3 4.5-12.5 RED BLOOD CELL (test code = RBC) 4.09 mill/mm3 3.7-5.2 HEMOGLOBIN (test code = HGB) 9.5 gram/dL 11.5-15.5 HEMATOCRIT (test code = HCT) 31.9 % 36.0-46.0 MEAN CELL VOLUME (test code = MCV) 78.0 fL 80-98 MEAN CELL HGB (test code = MCH) 23.2 picogram 27.0-33.0 MEAN CELL HGB CONCETRATION (test code = MCHC) 29.8 gram/dL 33 .0-36.0 RED CELL DISTRIBUTION WIDTH (test code = RDW) 17.6 % 11 .6-16.2 RED CELL DISTRIBUTION WIDTH SD (test code = RDW-SD) 49.4 fL 37.0-51.0 PLATELET COUNT (test code = PLT) 343 K/mm3 150-450 MEAN PLATELET VOLUME (test code = MPV) 10.0 fL 6.7-11.0 NEUTROPHIL % (test code = NT%) 57.5 % 39.0-69.0 IMMATURE GRANULOCYTE % (test code = IG%) 6.6 % 0.0-5.0 "The appearance of immature granulocytes (myelocytes,pro-myelocytes, meta-myelocytes) in the peripheral blood ofnon- individuals can indicate a response toinfection, inflammation, or other stimulus to the bonemarrow" LYMPHOCYTE % (test code = LY%) 18.3 % 25.0-55.0 MONOCYTE % (test code = MO%) 13.4 % 0.0-10.0 EOSINOPHIL % (test code = EO%) 3.8 % 0.0-5.0 BASOPHIL % (test code = BA%) 0.4 % 0.0-1.0 NUCLEATED RBC % (test code = NRBC%) 0.0 % 0-0 NEUTROPHIL # (test code = NT#) 4.67 K/mm3 1.8-7.7 IMMATURE GRANULOCYTE # (test code = IG#) 0.54 x10 3/uL 0-0.03 LYMPHOCYTE # (test code = LY#) 1.49 K/mm3 1.0-5.0 MONOCYTE # (test code = MO#) 1.09 K/mm3 0-0.8 EOSINOPHIL # (test code = EO#) 0.31 K/mm3 0.0-0.5 BASOPHIL # (test code = BA#) 0.03 K/mm3 0.0-0.2 NUCLEATED RBC # (test code = NRBC#) 0.00 K/mm3 0.0-0.1 MANUAL DIFF REQUIRED (test code = MDIFF) DIFF NEEDED STAIN ACCEPTABILITY (test code = STN ACCEPTABLE) TOTAL CELLS COUNTED (test code = TCC) #CELLS SEGMENTED NEUTROPHILS (test code = SEG) % 39-69 LYMPHOCYTE (test code = LYMPH) % 25-55 MONOCYTE (test code = MON) % 0-10 EOSINOPHIL (test code = EOS) % 0.0-5.0 CABOT RINGS (test code = CAB) MORPHOLOGY COMMENT (test code = MOC) PLATELET ESTIMATE (test code = PLTEST) PLATELET MORPHOLOGY (test code = PLTMORPH) CBC W/MANUAL [id number] 03:50:00* Test Item Value Reference Range Comments WHITE BLOOD CELL (test code = WBC) 8.1 K/mm3 4.5-12.5 RED BLOOD CELL (test code = RBC) 4.09 mill/mm3 3.7-5.2 HEMOGLOBIN (test code = HGB) 9.5 gram/dL 11.5-15.5 HEMATOCRIT (test code = HCT) 31.9 % 36.0-46.0 MEAN CELL VOLUME (test code = MCV) 78.0 fL 80-98 MEAN CELL HGB (test code = MCH) 23.2 picogram 27.0-33.0 MEAN CELL HGB CONCETRATION (test code = MCHC) 29.8 gram/dL 33 .0-36.0 RED CELL DISTRIBUTION WIDTH (test code = RDW) 17.6 % 11 .6-16.2 RED CELL DISTRIBUTION WIDTH SD (test code = RDW-SD) 49.4 fL 37.0-51.0 PLATELET COUNT (test code = PLT) 343 K/mm3 150-450 MEAN PLATELET VOLUME (test code = MPV) 10.0 fL 6.7-11.0 NEUTROPHIL % (test code = NT%) 57.5 % 39.0-69.0 IMMATURE GRANULOCYTE % (test code = IG%) 6.6 % 0.0-5.0 "The appearance of immature granulocytes (myelocytes,pro-myelocytes, meta-myelocytes) in the peripheral blood ofnon- individuals can indicate a response toinfection, inflammation, or other stimulus to the bonemarrow" LYMPHOCYTE % (test code = LY%) 18.3 % 25.0-55.0 MONOCYTE % (test code = MO%) 13.4 % 0.0-10.0 EOSINOPHIL % (test code = EO%) 3.8 % 0.0-5.0 BASOPHIL % (test code = BA%) 0.4 % 0.0-1.0 NUCLEATED RBC % (test code = NRBC%) 0.0 % 0-0 NEUTROPHIL # (test code = NT#) 4.67 K/mm3 1.8-7.7 IMMATURE GRANULOCYTE # (test code = IG#) 0.54 x10 3/uL 0-0.03 LYMPHOCYTE # (test code = LY#) 1.49 K/mm3 1.0-5.0 MONOCYTE # (test code = MO#) 1.09 K/mm3 0-0.8 EOSINOPHIL # (test code = EO#) 0.31 K/mm3 0.0-0.5 BASOPHIL # (test code = BA#) 0.03 K/mm3 0.0-0.2 NUCLEATED RBC # (test code = NRBC#) 0.00 K/mm3 0.0-0.1 MANUAL DIFF REQUIRED (test code = MDIFF) DIFF NEEDED STAIN ACCEPTABILITY (test code = STN ACCEPTABLE) TOTAL CELLS COUNTED (test code = TCC) #CELLS SEGMENTED NEUTROPHILS (test code = SEG) % 39-69 LYMPHOCYTE (test code = LYMPH) % 25-55 MONOCYTE (test code = MON) % 0-10 EOSINOPHIL (test code = EOS) % 0.0-5.0 CABOT RINGS (test code = CAB) MORPHOLOGY COMMENT (test code = MOC) PLATELET ESTIMATE (test code = PLTEST) PLATELET MORPHOLOGY (test code = PLTMORPH) CBC W/MANUAL [id number] 03:50:00* Test Item Value Reference Range Comments WHITE BLOOD CELL (test code = WBC) 8.1 K/mm3 4.5-12.5 RED BLOOD CELL (test code = RBC) 4.09 mill/mm3 3.7-5.2 HEMOGLOBIN (test code = HGB) 9.5 gram/dL 11.5-15.5 HEMATOCRIT (test code = HCT) 31.9 % 36.0-46.0 MEAN CELL VOLUME (test code = MCV) 78.0 fL 80-98 MEAN CELL HGB (test code = MCH) 23.2 picogram 27.0-33.0 MEAN CELL HGB CONCETRATION (test code = MCHC) 29.8 gram/dL 33 .0-36.0 RED CELL DISTRIBUTION WIDTH (test code = RDW) 17.6 % 11 .6-16.2 RED CELL DISTRIBUTION WIDTH SD (test code = RDW-SD) 49.4 fL 37.0-51.0 PLATELET COUNT (test code = PLT) 343 K/mm3 150-450 MEAN PLATELET VOLUME (test code = MPV) 10.0 fL 6.7-11.0 NEUTROPHIL % (test code = NT%) 57.5 % 39.0-69.0 IMMATURE GRANULOCYTE % (test code = IG%) 6.6 % 0.0-5.0 "The appearance of immature granulocytes (myelocytes,pro-myelocytes, meta-myelocytes) in the peripheral blood ofnon- individuals can indicate a response toinfection, inflammation, or other stimulus to the bonemarrow" LYMPHOCYTE % (test code = LY%) 18.3 % 25.0-55.0 MONOCYTE % (test code = MO%) 13.4 % 0.0-10.0 EOSINOPHIL % (test code = EO%) 3.8 % 0.0-5.0 BASOPHIL % (test code = BA%) 0.4 % 0.0-1.0 NUCLEATED RBC % (test code = NRBC%) 0.0 % 0-0 NEUTROPHIL # (test code = NT#) 4.67 K/mm3 1.8-7.7 IMMATURE GRANULOCYTE # (test code = IG#) 0.54 x10 3/uL 0-0.03 LYMPHOCYTE # (test code = LY#) 1.49 K/mm3 1.0-5.0 MONOCYTE # (test code = MO#) 1.09 K/mm3 0-0.8 EOSINOPHIL # (test code = EO#) 0.31 K/mm3 0.0-0.5 BASOPHIL # (test code = BA#) 0.03 K/mm3 0.0-0.2 NUCLEATED RBC # (test code = NRBC#) 0.00 K/mm3 0.0-0.1 MANUAL DIFF REQUIRED (test code = MDIFF) DIFF NEEDED STAIN ACCEPTABILITY (test code = STN ACCEPTABLE) TOTAL CELLS COUNTED (test code = TCC) #CELLS SEGMENTED NEUTROPHILS (test code = SEG) % 39-69 LYMPHOCYTE (test code = LYMPH) % 25-55 MONOCYTE (test code = MON) % 0-10 EOSINOPHIL (test code = EOS) % 0.0-5.0 MORPHOLOGY COMMENT (test code = MOC) PLATELET ESTIMATE (test code = PLTEST) PLATELET MORPHOLOGY (test code = PLTMORPH) CBC W/MANUAL [id number] 03:50:00* Test Item Value Reference Range Comments WHITE BLOOD CELL (test code = WBC) 8.1 K/mm3 4.5-12.5 RED BLOOD CELL (test code = RBC) 4.09 mill/mm3 3.7-5.2 HEMOGLOBIN (test code = HGB) 9.5 gram/dL 11.5-15.5 HEMATOCRIT (test code = HCT) 31.9 % 36.0-46.0 MEAN CELL VOLUME (test code = MCV) 78.0 fL 80-98 MEAN CELL HGB (test code = MCH) 23.2 picogram 27.0-33.0 MEAN CELL HGB CONCETRATION (test code = MCHC) 29.8 gram/dL 33 .0-36.0 RED CELL DISTRIBUTION WIDTH (test code = RDW) 17.6 % 11 .6-16.2 RED CELL DISTRIBUTION WIDTH SD (test code = RDW-SD) 49.4 fL 37.0-51.0 PLATELET COUNT (test code = PLT) 343 K/mm3 150-450 MEAN PLATELET VOLUME (test code = MPV) 10.0 fL 6.7-11.0 NEUTROPHIL % (test code = NT%) 57.5 % 39.0-69.0 IMMATURE GRANULOCYTE % (test code = IG%) 6.6 % 0.0-5.0 "The appearance of immature granulocytes (myelocytes,pro-myelocytes, meta-myelocytes) in the peripheral blood ofnon- individuals can indicate a response toinfection, inflammation, or other stimulus to the bonemarrow" LYMPHOCYTE % (test code = LY%) 18.3 % 25.0-55.0 MONOCYTE % (test code = MO%) 13.4 % 0.0-10.0 EOSINOPHIL % (test code = EO%) 3.8 % 0.0-5.0 BASOPHIL % (test code = BA%) 0.4 % 0.0-1.0 NUCLEATED RBC % (test code = NRBC%) 0.0 % 0-0 NEUTROPHIL # (test code = NT#) 4.67 K/mm3 1.8-7.7 IMMATURE GRANULOCYTE # (test code = IG#) 0.54 x10 3/uL 0-0.03 LYMPHOCYTE # (test code = LY#) 1.49 K/mm3 1.0-5.0 MONOCYTE # (test code = MO#) 1.09 K/mm3 0-0.8 EOSINOPHIL # (test code = EO#) 0.31 K/mm3 0.0-0.5 BASOPHIL # (test code = BA#) 0.03 K/mm3 0.0-0.2 NUCLEATED RBC # (test code = NRBC#) 0.00 K/mm3 0.0-0.1 MANUAL DIFF REQUIRED (test code = MDIFF) DIFF NEEDED STAIN ACCEPTABILITY (test code = STN ACCEPTABLE) TOTAL CELLS COUNTED (test code = TCC) #CELLS SEGMENTED NEUTROPHILS (test code = SEG) % 39-69 LYMPHOCYTE (test code = LYMPH) % 25-55 MONOCYTE (test code = MON) % 0-10 MORPHOLOGY COMMENT (test code = MOC) PLATELET ESTIMATE (test code = PLTEST) PLATELET MORPHOLOGY (test code = PLTMORPH) CBC W/MANUAL [id number] 03:50:00* Test Item Value Reference Range Comments WHITE BLOOD CELL (test code = WBC) 8.1 K/mm3 4.5-12.5 RED BLOOD CELL (test code = RBC) 4.09 mill/mm3 3.7-5.2 HEMOGLOBIN (test code = HGB) 9.5 gram/dL 11.5-15.5 HEMATOCRIT (test code = HCT) 31.9 % 36.0-46.0 MEAN CELL VOLUME (test code = MCV) 78.0 fL 80-98 MEAN CELL HGB (test code = MCH) 23.2 picogram 27.0-33.0 MEAN CELL HGB CONCETRATION (test code = MCHC) 29.8 gram/dL 33 .0-36.0 RED CELL DISTRIBUTION WIDTH (test code = RDW) 17.6 % 11 .6-16.2 RED CELL DISTRIBUTION WIDTH SD (test code = RDW-SD) 49.4 fL 37.0-51.0 PLATELET COUNT (test code = PLT) 343 K/mm3 150-450 MEAN PLATELET VOLUME (test code = MPV) 10.0 fL 6.7-11.0 NEUTROPHIL % (test code = NT%) 57.5 % 39.0-69.0 IMMATURE GRANULOCYTE % (test code = IG%) 6.6 % 0.0-5.0 "The appearance of immature granulocytes (myelocytes,pro-myelocytes, meta-myelocytes) in the peripheral blood ofnon- individuals can indicate a response toinfection, inflammation, or other stimulus to the bonemarrow" LYMPHOCYTE % (test code = LY%) 18.3 % 25.0-55.0 MONOCYTE % (test code = MO%) 13.4 % 0.0-10.0 EOSINOPHIL % (test code = EO%) 3.8 % 0.0-5.0 BASOPHIL % (test code = BA%) 0.4 % 0.0-1.0 NUCLEATED RBC % (test code = NRBC%) 0.0 % 0-0 NEUTROPHIL # (test code = NT#) 4.67 K/mm3 1.8-7.7 IMMATURE GRANULOCYTE # (test code = IG#) 0.54 x10 3/uL 0-0.03 LYMPHOCYTE # (test code = LY#) 1.49 K/mm3 1.0-5.0 MONOCYTE # (test code = MO#) 1.09 K/mm3 0-0.8 EOSINOPHIL # (test code = EO#) 0.31 K/mm3 0.0-0.5 BASOPHIL # (test code = BA#) 0.03 K/mm3 0.0-0.2 NUCLEATED RBC # (test code = NRBC#) 0.00 K/mm3 0.0-0.1 MANUAL DIFF REQUIRED (test code = MDIFF) DIFF NEEDED STAIN ACCEPTABILITY (test code = STN ACCEPTABLE) TOTAL CELLS COUNTED (test code = TCC) #CELLS SEGMENTED NEUTROPHILS (test code = SEG) % 39-69 LYMPHOCYTE (test code = LYMPH) % 25-55 MONOCYTE (test code = MON) % 0-10 EOSINOPHIL (test code = EOS) % 0.0-5.0 CABOT RINGS (test code = CAB) MORPHOLOGY COMMENT (test code = MOC) PLATELET ESTIMATE (test code = PLTEST) PLATELET MORPHOLOGY (test code = PLTMORPH) - XR CHEST 1 [id number] 06:47:00 FAX: Cinda Riggs NP [phone] [place]: B St: ADM FAX: López Landeros II, MD FAX: Chanell Antunez MD [phone] Name: RODRÍGUEZ JENKINS [facility] : 1955 Age/S: 63/F [address] [facility] Unit #: [id number] Loc: [address] [place] [address] Phys: Cinda Riggs NP Acct: [id number] Dis Date: Status: ADM IN ONE #: [phone] Exam Date: 05/08/2019 0115 FAX #: [phone] Reason: sob EXAMS: CPT CODE: [id number] XR CHEST 1 V [id number] REASON FOR EXAM: sob EXAM ORDER DATE: 05/08/2019 5:00 AM Or dering: Cinda Riggs NP Attending:López Landeros II, MD Location: PROCEDURE: - XR CHEST 1 V COMPARISON: 05/07/2019 FINDINGS: Portable AP frontal view of the chest obtained at 1:06 AM shows patchy airspace opacity of the bases. There is no evidence of ef fusion. The heart size is minimally enlarged. Pulmonary vasculatures are m inimally congested. IMPRESSION: Persistent hypoaerated lungs wi th atelectasis of the left base at 0647 Reported and signed by: Baljeet Tobar M.D. CC: Cinda Riggs [employer] MAT INSPECTOR; López Landeros II, MD; Chanell Harry Technologist: Steven Campos RT(R); LINDA JOSE RT(R) Trnscrd Date/Time/By: 05/08/2019 (2270) : By: Juanjose Orig Print D/T : S: 05/08/2019 (5932) PAGE 1 Sig parveen Report CBC W/AUTO [id number] 05:02:00* Test Item Value Reference Range Comments WHITE BLOOD CELL (test code = WBC) 7.8 K/mm3 4.5-12.5 RED BLOOD CELL (test code = RBC) 4.13 mill/mm3 3.7-5.2 HEMOGLOBIN (test code = HGB) 9.7 gram/dL 11.5-15.5 HEMATOCRIT (test code = HCT) 32.5 % 36.0-46.0 MEAN CELL VOLUME (test code = MCV) 78.7 fL 80-98 MEAN CELL HGB (test code = MCH) 23.5 picogram 27.0-33.0 MEAN CELL HGB CONCETRATION (test code = MCHC) 29.8 gram/dL 33 .0-36.0 RED CELL DISTRIBUTION WIDTH (test code = RDW) 17.3 % 11 .6-16.2 RED CELL DISTRIBUTION WIDTH SD (test code = RDW-SD) 48.5 fL 37.0-51.0 PLATELET COUNT (test code = PLT) 366 K/mm3 150-450 RESULT VERIFIED BY REPEAT ANALYSIS MEAN PLATELET VOLUME (test code = MPV) 10.3 fL 6.7-11.0 NEUTROPHIL % (test code = NT%) 65.1 % 39.0-69.0 IMMATURE GRANULOCYTE % (test code = IG%) 3.9 % 0.0-5.0 LYMPHOCYTE % (test code = LY%) 14.3 % 25.0-55.0 MONOCYTE % (test code = MO%) 12.9 % 0.0-10.0 EOSINOPHIL % (test code = EO%) 3.3 % 0.0-5.0 BASOPHIL % (test code = BA%) 0.5 % 0.0-1.0 NUCLEATED RBC % (test code = NRBC%) 0.0 % 0-0 NEUTROPHIL # (test code = NT#) 5.06 K/mm3 1.8-7.7 IMMATURE GRANULOCYTE # (test code = IG#) 0.30 x10 3/uL 0-0.03 LYMPHOCYTE # (test code = LY#) 1.11 K/mm3 1.0-5.0 MONOCYTE # (test code = MO#) 1.00 K/mm3 0-0.8 EOSINOPHIL # (test code = EO#) 0.26 K/mm3 0.0-0.5 BASOPHIL # (test code = BA#) 0.04 K/mm3 0.0-0.2 NUCLEATED RBC # (test code = NRBC#) 0.00 K/mm3 0.0-0.1 MANUAL DIFF REQUIRED (test code = MDIFF) NO, ONLY SCAN NEEDED DIFFERENTIAL [id number] 05:02:00* Test Item Value Reference Range Comments STAIN ACCEPTABILITY (test code = STN ACCEPTABLE) STAIN ACCEPTABL E HYPOCHROMIA (test code = HYPO) 1+ ANISOCYTOSIS (test code = ANISO) 1+ MICROCYTOSIS (test code = MICR) 1+ PLATELET ESTIMATE (test code = PLTEST) ADEQUATE PLATELET MORPHOLOGY (test code = PLTMORPH) NORMAL CBC W/AUTO [id number] 03:37:00* Test Item Value Reference Range Comments WHITE BLOOD CELL (test code = WBC) 7.8 K/mm3 4.5-12.5 RED BLOOD CELL (test code = RBC) 4.13 mill/mm3 3.7-5.2 HEMOGLOBIN (test code = HGB) 9.7 gram/dL 11.5-15.5 HEMATOCRIT (test code = HCT) 32.5 % 36.0-46.0 MEAN CELL VOLUME (test code = MCV) 78.7 fL 80-98 MEAN CELL HGB (test code = MCH) 23.5 picogram 27.0-33.0 MEAN CELL HGB CONCETRATION (test code = MCHC) 29.8 gram/dL 33 .0-36.0 RED CELL DISTRIBUTION WIDTH (test code = RDW) 17.3 % 11 .6-16.2 RED CELL DISTRIBUTION WIDTH SD (test code = RDW-SD) 48.5 fL 37.0-51.0 PLATELET COUNT (test code = PLT) 366 K/mm3 150-450 RESULT VERIFIED BY REPEAT ANALYSIS MEAN PLATELET VOLUME (test code = MPV) 10.3 fL 6.7-11.0 NEUTROPHIL % (test code = NT%) 65.1 % 39.0-69.0 IMMATURE GRANULOCYTE % (test code = IG%) 3.9 % 0.0-5.0 LYMPHOCYTE % (test code = LY%) 14.3 % 25.0-55.0 MONOCYTE % (test code = MO%) 12.9 % 0.0-10.0 EOSINOPHIL % (test code = EO%) 3.3 % 0.0-5.0 BASOPHIL % (test code = BA%) 0.5 % 0.0-1.0 NUCLEATED RBC % (test code = NRBC%) 0.0 % 0-0 NEUTROPHIL # (test code = NT#) 5.06 K/mm3 1.8-7.7 IMMATURE GRANULOCYTE # (test code = IG#) 0.30 x10 3/uL 0-0.03 LYMPHOCYTE # (test code = LY#) 1.11 K/mm3 1.0-5.0 MONOCYTE # (test code = MO#) 1.00 K/mm3 0-0.8 EOSINOPHIL # (test code = EO#) 0.26 K/mm3 0.0-0.5 BASOPHIL # (test code = BA#) 0.04 K/mm3 0.0-0.2 NUCLEATED RBC # (test code = NRBC#) 0.00 K/mm3 0.0-0.1 MANUAL DIFF REQUIRED (test code = MDIFF) NO, ONLY SCAN NEEDED DIFFERENTIAL [id number] 03:37:00* Test Item Value Reference Range Comments STAIN ACCEPTABILITY (test code = STN ACCEPTABLE) CABOT RINGS (test code = CAB) MORPHOLOGY COMMENT (test code = MOC) PLATELET ESTIMATE (test code = PLTEST) PLATELET MORPHOLOGY (test code = PLTMORPH) CBC W/AUTO [id number] 03:37:00* Test Item Value Reference Range Comments WHITE BLOOD CELL (test code = WBC) 7.8 K/mm3 4.5-12.5 RED BLOOD CELL (test code = RBC) 4.13 mill/mm3 3.7-5.2 HEMOGLOBIN (test code = HGB) 9.7 gram/dL 11.5-15.5 HEMATOCRIT (test code = HCT) 32.5 % 36.0-46.0 MEAN CELL VOLUME (test code = MCV) 78.7 fL 80-98 MEAN CELL HGB (test code = MCH) 23.5 picogram 27.0-33.0 MEAN CELL HGB CONCETRATION (test code = MCHC) 29.8 gram/dL 33 .0-36.0 RED CELL DISTRIBUTION WIDTH (test code = RDW) 17.3 % 11 .6-16.2 RED CELL DISTRIBUTION WIDTH SD (test code = RDW-SD) 48.5 fL 37.0-51.0 PLATELET COUNT (test code = PLT) 366 K/mm3 150-450 RESULT VERIFIED BY REPEAT ANALYSIS MEAN PLATELET VOLUME (test code = MPV) 10.3 fL 6.7-11.0 NEUTROPHIL % (test code = NT%) 65.1 % 39.0-69.0 IMMATURE GRANULOCYTE % (test code = IG%) 3.9 % 0.0-5.0 LYMPHOCYTE % (test code = LY%) 14.3 % 25.0-55.0 MONOCYTE % (test code = MO%) 12.9 % 0.0-10.0 EOSINOPHIL % (test code = EO%) 3.3 % 0.0-5.0 BASOPHIL % (test code = BA%) 0.5 % 0.0-1.0 NUCLEATED RBC % (test code = NRBC%) 0.0 % 0-0 NEUTROPHIL # (test code = NT#) 5.06 K/mm3 1.8-7.7 IMMATURE GRANULOCYTE # (test code = IG#) 0.30 x10 3/uL 0-0.03 LYMPHOCYTE # (test code = LY#) 1.11 K/mm3 1.0-5.0 MONOCYTE # (test code = MO#) 1.00 K/mm3 0-0.8 EOSINOPHIL # (test code = EO#) 0.26 K/mm3 0.0-0.5 BASOPHIL # (test code = BA#) 0.04 K/mm3 0.0-0.2 NUCLEATED RBC # (test code = NRBC#) 0.00 K/mm3 0.0-0.1 MANUAL DIFF REQUIRED (test code = MDIFF) NO, ONLY SCAN NEEDED DIFFERENTIAL [id number] 03:37:00* Test Item Value Reference Range Comments STAIN ACCEPTABILITY (test code = STN ACCEPTABLE) CABOT RINGS (test code = CAB) MORPHOLOGY COMMENT (test code = MOC) PLATELET ESTIMATE (test code = PLTEST) PLATELET MORPHOLOGY (test code = PLTMORPH) CBC W/AUTO [id number] 03:37:00* Test Item Value Reference Range Comments WHITE BLOOD CELL (test code = WBC) 7.8 K/mm3 4.5-12.5 RED BLOOD CELL (test code = RBC) 4.13 mill/mm3 3.7-5.2 HEMOGLOBIN (test code = HGB) 9.7 gram/dL 11.5-15.5 HEMATOCRIT (test code = HCT) 32.5 % 36.0-46.0 MEAN CELL VOLUME (test code = MCV) 78.7 fL 80-98 MEAN CELL HGB (test code = MCH) 23.5 picogram 27.0-33.0 MEAN CELL HGB CONCETRATION (test code = MCHC) 29.8 gram/dL 33 .0-36.0 RED CELL DISTRIBUTION WIDTH (test code = RDW) 17.3 % 11 .6-16.2 RED CELL DISTRIBUTION WIDTH SD (test code = RDW-SD) 48.5 fL 37.0-51.0 PLATELET COUNT (test code = PLT) 366 K/mm3 150-450 RESULT VERIFIED BY REPEAT ANALYSIS MEAN PLATELET VOLUME (test code = MPV) 10.3 fL 6.7-11.0 NEUTROPHIL % (test code = NT%) 65.1 % 39.0-69.0 IMMATURE GRANULOCYTE % (test code = IG%) 3.9 % 0.0-5.0 LYMPHOCYTE % (test code = LY%) 14.3 % 25.0-55.0 MONOCYTE % (test code = MO%) 12.9 % 0.0-10.0 EOSINOPHIL % (test code = EO%) 3.3 % 0.0-5.0 BASOPHIL % (test code = BA%) 0.5 % 0.0-1.0 NUCLEATED RBC % (test code = NRBC%) 0.0 % 0-0 NEUTROPHIL # (test code = NT#) 5.06 K/mm3 1.8-7.7 IMMATURE GRANULOCYTE # (test code = IG#) 0.30 x10 3/uL 0-0.03 LYMPHOCYTE # (test code = LY#) 1.11 K/mm3 1.0-5.0 MONOCYTE # (test code = MO#) 1.00 K/mm3 0-0.8 EOSINOPHIL # (test code = EO#) 0.26 K/mm3 0.0-0.5 BASOPHIL # (test code = BA#) 0.04 K/mm3 0.0-0.2 NUCLEATED RBC # (test code = NRBC#) 0.00 K/mm3 0.0-0.1 MANUAL DIFF REQUIRED (test code = MDIFF) NO, ONLY SCAN NEEDED DIFFERENTIAL [id number] 03:37:00* Test Item Value Reference Range Comments STAIN ACCEPTABILITY (test code = STN ACCEPTABLE) MORPHOLOGY COMMENT (test code = MOC) PLATELET ESTIMATE (test code = PLTEST) PLATELET MORPHOLOGY (test code = PLTMORPH) CBC W/AUTO [id number] 03:37:00* Test Item Value Reference Range Comments WHITE BLOOD CELL (test code = WBC) 7.8 K/mm3 4.5-12.5 RED BLOOD CELL (test code = RBC) 4.13 mill/mm3 3.7-5.2 HEMOGLOBIN (test code = HGB) 9.7 gram/dL 11.5-15.5 HEMATOCRIT (test code = HCT) 32.5 % 36.0-46.0 MEAN CELL VOLUME (test code = MCV) 78.7 fL 80-98 MEAN CELL HGB (test code = MCH) 23.5 picogram 27.0-33.0 MEAN CELL HGB CONCETRATION (test code = MCHC) 29.8 gram/dL 33 .0-36.0 RED CELL DISTRIBUTION WIDTH (test code = RDW) 17.3 % 11 .6-16.2 RED CELL DISTRIBUTION WIDTH SD (test code = RDW-SD) 48.5 fL 37.0-51.0 PLATELET COUNT (test code = PLT) 366 K/mm3 150-450 RESULT VERIFIED BY REPEAT ANALYSIS MEAN PLATELET VOLUME (test code = MPV) 10.3 fL 6.7-11.0 NEUTROPHIL % (test code = NT%) 65.1 % 39.0-69.0 IMMATURE GRANULOCYTE % (test code = IG%) 3.9 % 0.0-5.0 LYMPHOCYTE % (test code = LY%) 14.3 % 25.0-55.0 MONOCYTE % (test code = MO%) 12.9 % 0.0-10.0 EOSINOPHIL % (test code = EO%) 3.3 % 0.0-5.0 BASOPHIL % (test code = BA%) 0.5 % 0.0-1.0 NUCLEATED RBC % (test code = NRBC%) 0.0 % 0-0 NEUTROPHIL # (test code = NT#) 5.06 K/mm3 1.8-7.7 IMMATURE GRANULOCYTE # (test code = IG#) 0.30 x10 3/uL 0-0.03 LYMPHOCYTE # (test code = LY#) 1.11 K/mm3 1.0-5.0 MONOCYTE # (test code = MO#) 1.00 K/mm3 0-0.8 EOSINOPHIL # (test code = EO#) 0.26 K/mm3 0.0-0.5 BASOPHIL # (test code = BA#) 0.04 K/mm3 0.0-0.2 NUCLEATED RBC # (test code = NRBC#) 0.00 K/mm3 0.0-0.1 MANUAL DIFF REQUIRED (test code = MDIFF) NO, ONLY SCAN NEEDED DIFFERENTIAL [id number] 03:37:00* Test Item Value Reference Range Comments STAIN ACCEPTABILITY (test code = STN ACCEPTABLE) CABOT RINGS (test code = CAB) MORPHOLOGY COMMENT (test code = MOC) PLATELET ESTIMATE (test code = PLTEST) PLATELET MORPHOLOGY (test code = PLTMORPH) BASIC METABOLIC [id number] 03:35:00* Test Item Value Reference Range Comments SODIUM (test code = NA) 142 mmol/L 136-145 POTASSIUM (test code = K) 3.4 mmol/L 3.5-5.1 CHLORIDE (test code = CL) 104.0 mmol/L 98-107 CARBON DIOXIDE (test code = CO2) 32.0 mmol/L 21-32 ANION GAP (test code = GAP) 9.4 10-20 GLUCOSE (test code = GLU) 119 mg/dL 74-106 BLOOD UREA NITROGEN (test code = BUN) 48 mg/dL 7-18 GLOMERULAR FILTRATION RATE (test code = GFR) 27 mL/min >=6 0 Estimated GFR by using Modified MDRD formula.Chronic kidney disease is defined as either kidney damageor GFR <60 mL/min/1.73 m2 for >3 months. CREATININE (test code = CREAT) 1.90 mg/dL 0.55-1.02 * *Note change in reference range due to change in reagent. BUN/CREATININE RATIO (test code = BUN/CREA) 25.3 10-2 0 CALCIUM (test code = CA) 9.0 mg/dL 8.5-10.1 [id number] 03:35:00* Test Item Value Reference Range Comments PHOSPHORUS (test code = PHOS) 3.6 mg/dL 2.5-4.9 [id number] 03:35:00* Test Item Value Reference Range Comments MAGNESIUM (test code = MAG) 2.2 mg/dL 1.8-2.4 CALCIUM [id number] 03:35:00* Test Item Value Reference Range Comments CALCIUM IONIZED (test code = MINDY) 1.22 mmol/L 1.12-1.32 BASIC METABOLIC [id number] 03:32:00* Test Item Value Reference Range Comments SODIUM (test code = NA) 142 mmol/L 136-145 POTASSIUM (test code = K) 3.4 mmol/L 3.5-5.1 CHLORIDE (test code = CL) 104.0 mmol/L 98-107 CARBON DIOXIDE (test code = CO2) mmol/L 21-32 ANION GAP (test code = GAP) 10-20 GLUCOSE (test code = GLU) mg/dL 74-106 BLOOD UREA NITROGEN (test code = BUN) mg/dL 7-18 GLOMERULAR FILTRATION RATE (test code = GFR) mL/min >=6 0 CREATININE (test code = CREAT) mg/dL 0.55-1.02 BUN/CREATININE RATIO (test code = BUN/CREA) 10-2 0 CALCIUM (test code = CA) mg/dL 8.5-10.1 [id number] 03:32:00* Test Item Value Reference Range Comments PHOSPHORUS (test code = PHOS) mg/dL 2.5-4.9 [id number] 03:32:00* Test Item Value Reference Range Comments MAGNESIUM (test code = MAG) mg/dL 1.8-2.4 CALCIUM [id number] 03:32:00* Test Item Value Reference Range Comments CALCIUM IONIZED (test code = MINDY) 1.22 mmol/L 1.12-1.32 BASIC METABOLIC [id number] 03:29:00* Test Item Value Reference Range Comments SODIUM (test code = NA) 142 mmol/L 136-145 POTASSIUM (test code = K) 3.4 mmol/L 3.5-5.1 CHLORIDE (test code = CL) 104.0 mmol/L 98-107 CARBON DIOXIDE (test code = CO2) mmol/L 21-32 ANION GAP (test code = GAP) 10-20 GLUCOSE (test code = GLU) mg/dL 74-106 BLOOD UREA NITROGEN (test code = BUN) mg/dL 7-18 GLOMERULAR FILTRATION RATE (test code = GFR) mL/min >=6 0 CREATININE (test code = CREAT) mg/dL 0.55-1.02 BUN/CREATININE RATIO (test code = BUN/CREA) 10-2 0 CALCIUM (test code = CA) mg/dL 8.5-10.1 [id number] 03:29:00* Test Item Value Reference Range Comments PHOSPHORUS (test code = PHOS) mg/dL 2.5-4.9 [id number] 03:29:00* Test Item Value Reference Range Comments MAGNESIUM (test code = MAG) mg/dL 1.8-2.4 CALCIUM [id number] 03:29:00* Test Item Value Reference Range Comments CALCIUM IONIZED (test code = MINDY) mmol/L 1.12-1.32 ARTERIAL BLOOD [id number] 11:34:00* Test Item Value Reference Range Comments ARTERIAL BLOOD GAS PH (test code = PHA) 7.35 7.35-7.4 5 ARTERIAL BLOOD GAS PCO2 (test code = PCO2A) 48.9 mm Hg 35-4 5 ARTERIAL BLOOD GAS PO2 (test code = PO2A) 176.8 mmHg 80-100 BICARBONATE TOTAL HCO3 (test code = HCO3) 26.3 mmol/L 23.0-2 7.0 BASE EXCESS (test code = WESLEY) 0.4 mmol/L -3.0-5.0 ABG O2 SATURATION (test code = SATA) 98.9 % 90.0-98.0 ABG TYPE (test code = TYPEA) Arterial FIO2 (test code = FIO2A) 50.0 ABG L/M (test code = L/M) 8.00 L/MIN ABG SITE (test code = SITEA) Rt RADIAL ARTERY MODIFIED ALLENS (test code = MODALL) Yes CHECK PERFORMED HEMATOCRIT (test code = HCT/ABG) 28 % 35-47 TOTAL HGB (test code = THB) 9.4 gram/dL 11.5-15.5 HGB O2 SAT (test code = HBOSAT) 97.7 % 94.00-98.00 CARBOXYHEMOGLOBIN (test code = HOHGBT) 1.1 %totalHg 0.5-1.5 METHEMOGLOBIN (test code = METHGB) 0.1 % 0.0-1.50 O2 CONTENT (test code = O2CT) 13.3 % vol 18.0-22.0 COMPLEMENT [id number] 09:10:00* Test Item Value Reference Range Comments COMPLEMENT C3 (test code = COMC3) mg/dL COMPLEMENT [id number] 09:10:00* Test Item Value Reference Range Comments COMPLEMENT C4 (test code = COMC4) 41 mg/dL 14-44 COMPLEMENT [id number] 09:10:00* Test Item Value Reference Range Comments COMPLEMENT C3 (test code = COMC3) 196 mg/dL 82-167 Performed At: [facility] [address] [place], [place] [id number] Milad Mosley MD Ph:[phone] COMPLEMENT [id number] 09:10:00* Test Item Value Reference Range Comments COMPLEMENT C4 (test code = COMC4) 41 mg/dL 14-44 [id number] 08:08:00* Test Item Value Reference Range Comments GLUBED (test code = GLUBED) 108 mg/dL 74-106 Perf ormed by certified database operator at [facility] - XR CHEST 1 [id number] 06:08:00 FAX: Cinda Riggs NP [phone] [place]: B St: ADM FAX: López Landeros II, MD FAX: Chanell Antunez MD [phone] Name: RODRÍGUEZ JENKINS REENA [facility] : 1955 Age/S: 63/F [address] [facility] Unit #: [id number] [place] [address] Phys: Cinda Riggs NP Acct: [id number] Dis Date: Status: ADM IN ONE #: [phone] Exam Date: 05/07/2019 0516 FAX #: [phone] Reason: sob EXAMS: CPT CODE: [id number] XR CHEST 1 V 86702 CLINICAL HISTO RY: Shortness of breath TECHNIQUE: AP chest x-ray CO MPARISON: Previous day. IMPRESSION: No signifi cant interval change. Lung volumes with bibasilar interstitial opacities and subsegmental atelectasis. No pleural effusion. Cardiomegaly. Ather osclerotic vascular calcification of the thoracic aorta. LOCATION: [facility] Signed by Shanda Cui D.O. on 05/07/2019 at 0608 Repor jolene and signed by: Shanda Cui D.O. CC: Cinda Riggs NP; López Syed II, MD; Chanell Harry Technologist: ISIAH JACOBSON JR; Jennifer Hoover Trnscrd Date/Time/By: 05/07/2019 (06) : By: [email or web address] Orig Print D/T: S: 05/07/2019 (0611) PAGE 1 Signed Report ARTERIAL BLOOD GAS 2019-05-07 04:31:00* Test Item Value Reference Range Comments ARTERIAL BLOOD GAS PH (test code = PHA) 7.32 7.35-7.4 5 ARTERIAL BLOOD GAS PCO2 (test code = PCO2A) 51.8 mm Hg 35-4 5 ARTERIAL BLOOD GAS PO2 (test code = PO2A) < 38.8 mmHg 80-100 Results called to and read back by Mason 04:30 - 05/07/2019; by Sol BICARBONATE TOTAL HCO3 (test code = HCO3) 26.3 mmol/L 23.0-2 7.0 BASE EXCESS (test code = WESLEY) -0.1 mmol/L -3.0-5.0 ABG O2 SATURATION (test code = SATA) 70.0 % 90.0-98.0 ABG TYPE (test code = TYPEA) Arterial FIO2 (test code = FIO2A) 36.0 ABG L/M (test code = L/M) 4.00 L/MIN ABG SITE (test code = SITEA) Rt RADIAL ARTERY MODIFIED ALLENS (test code = MODALL) Yes CHECK PERFORMED HEMATOCRIT (test code = HCT/ABG) 28 % 35-47 TOTAL HGB (test code = THB) 9.5 gram/dL 11.5-15.5 HGB O2 SAT (test code = HBOSAT) 69.2 % 94.00-98.00 CARBOXYHEMOGLOBIN (test code = HOHGBT) 1.0 %totalHg 0.5-1.5 METHEMOGLOBIN (test code = METHGB) 0.2 % 0.0-1.50 CBC W/AUTO [id number] 04:30:00* Test Item Value Reference Range Comments WHITE BLOOD CELL (test code = WBC) 6.7 K/mm3 4.5-12.5 RED BLOOD CELL (test code = RBC) 3.61 mill/mm3 3.7-5.2 HEMOGLOBIN (test code = HGB) 8.4 gram/dL 11.5-15.5 HEMATOCRIT (test code = HCT) 29.2 % 36.0-46.0 MEAN CELL VOLUME (test code = MCV) 80.9 fL 80-98 MEAN CELL HGB (test code = MCH) 23.3 picogram 27.0-33.0 MEAN CELL HGB CONCETRATION (test code = MCHC) 28.8 gram/dL 33 .0-36.0 RED CELL DISTRIBUTION WIDTH (test code = RDW) 17.1 % 11 .6-16.2 RED CELL DISTRIBUTION WIDTH SD (test code = RDW-SD) 50.4 fL 37.0-51.0 PLATELET COUNT (test code = PLT) 293 K/mm3 150-450 MEAN PLATELET VOLUME (test code = MPV) 10.6 fL 6.7-11.0 NEUTROPHIL % (test code = NT%) 70.2 % 39.0-69.0 IMMATURE GRANULOCYTE % (test code = IG%) 2.6 % 0.0-5.0 LYMPHOCYTE % (test code = LY%) 12.6 % 25.0-55.0 MONOCYTE % (test code = MO%) 10.4 % 0.0-10.0 EOSINOPHIL % (test code = EO%) 3.9 % 0.0-5.0 BASOPHIL % (test code = BA%) 0.3 % 0.0-1.0 NUCLEATED RBC % (test code = NRBC%) 0.0 % 0-0 NEUTROPHIL # (test code = NT#) 4.67 K/mm3 1.8-7.7 IMMATURE GRANULOCYTE # (test code = IG#) 0.17 x10 3/uL 0-0.03 LYMPHOCYTE # (test code = LY#) 0.84 K/mm3 1.0-5.0 MONOCYTE # (test code = MO#) 0.69 K/mm3 0-0.8 EOSINOPHIL # (test code = EO#) 0.26 K/mm3 0.0-0.5 BASOPHIL # (test code = BA#) 0.02 K/mm3 0.0-0.2 NUCLEATED RBC # (test code = NRBC#) 0.00 K/mm3 0.0-0.1 MANUAL DIFF REQUIRED (test code = MDIFF) NO, ONLY SCAN NEEDED DIFFERENTIAL [id number] 04:30:00* Test Item Value Reference Range Comments STAIN ACCEPTABILITY (test code = STN ACCEPTABLE) STAIN ACCEPTABL E POLYCHROMASIA (test code = POLC) 1+ HYPOCHROMIA (test code = HYPO) 2+ POIKILOCYTOSIS (test code = POIK) 1+ ANISOCYTOSIS (test code = ANISO) 1+ MICROCYTOSIS (test code = MICR) 1+ ROULEAUX (test code = ROU) SLIGHT PLATELET ESTIMATE (test code = PLTEST) ADEQUATE PLATELET MORPHOLOGY (test code = PLTMORPH) NORMAL BASIC METABOLIC [id number] 04:21:00* Test Item Value Reference Range Comments SODIUM (test code = NA) 137 mmol/L 136-145 RESULT V ERIFIED BY REPEAT ANALYSIS POTASSIUM (test code = K) 3.6 mmol/L 3.5-5.1 CHLORIDE (test code = CL) 104.0 mmol/L 98-107 CARBON DIOXIDE (test code = CO2) 24.0 mmol/L 21-32 ANION GAP (test code = GAP) 12.6 10-20 GLUCOSE (test code = GLU) 471 mg/dL 74-106 BLOOD UREA NITROGEN (test code = BUN) 47 mg/dL 7-18 GLOMERULAR FILTRATION RATE (test code = GFR) 25 mL/min >=6 0 Estimated GFR by using Modified MDRD formula.Chronic kidney disease is defined as either kidney damageor GFR <60 mL/min/1.73 m2 for >3 months. CREATININE (test code = CREAT) 2.00 mg/dL 0.55-1.02 * *Note change in reference range due to change in reagent. BUN/CREATININE RATIO (test code = BUN/CREA) 23.5 10-2 0 CALCIUM (test code = CA) 7.8 mg/dL 8.5-10.1 RENAL FUNCTION [id number] 04:21:00* Test Item Value Reference Range Comments ALBUMIN (test code = ALB) 2.1 g/dL 3.4-5.0 PHOSPHORUS (test code = PHOS) 3.7 mg/dL 2.5-4.9 [id number] 04:21:00* Test Item Value Reference Range Comments MAGNESIUM (test code = MAG) 1.7 mg/dL 1.8-2.4 CALCIUM [id number] 04:21:00* Test Item Value Reference Range Comments CALCIUM IONIZED (test code = MINDY) mmol/L 1.12-1.32 BASIC METABOLIC [id number] 04:21:00* Test Item Value Reference Range Comments SODIUM (test code = NA) 137 mmol/L 136-145 RESULT V ERIFIED BY REPEAT ANALYSIS POTASSIUM (test code = K) 3.6 mmol/L 3.5-5.1 CHLORIDE (test code = CL) 104.0 mmol/L 98-107 CARBON DIOXIDE (test code = CO2) 24.0 mmol/L 21-32 ANION GAP (test code = GAP) 12.6 10-20 GLUCOSE (test code = GLU) 471 mg/dL 74-106 BLOOD UREA NITROGEN (test code = BUN) 47 mg/dL 7-18 GLOMERULAR FILTRATION RATE (test code = GFR) 25 mL/min >=6 0 Estimated GFR by using Modified MDRD formula.Chronic kidney disease is defined as either kidney damageor GFR <60 mL/min/1.73 m2 for >3 months. CREATININE (test code = CREAT) 2.00 mg/dL 0.55-1.02 * *Note change in reference range due to change in reagent. BUN/CREATININE RATIO (test code = BUN/CREA) 23.5 10-2 0 CALCIUM (test code = CA) 7.8 mg/dL 8.5-10.1 RENAL FUNCTION [id number] 04:21:00* Test Item Value Reference Range Comments ALBUMIN (test code = ALB) 2.1 g/dL 3.4-5.0 PHOSPHORUS (test code = PHOS) 3.7 mg/dL 2.5-4.9 [id number] 04:21:00* Test Item Value Reference Range Comments MAGNESIUM (test code = MAG) 1.7 mg/dL 1.8-2.4 CALCIUM [id number] 04:21:00* Test Item Value Reference Range Comments CALCIUM IONIZED (test code = MINDY) 1.22 mmol/L 1.12-1.32 BASIC METABOLIC [id number] 04:10:00* Test Item Value Reference Range Comments SODIUM (test code = NA) 137 mmol/L 136-145 RESULT V ERIFIED BY REPEAT ANALYSIS POTASSIUM (test code = K) 3.6 mmol/L 3.5-5.1 CHLORIDE (test code = CL) 104.0 mmol/L 98-107 CARBON DIOXIDE (test code = CO2) 24.0 mmol/L 21-32 ANION GAP (test code = GAP) 12.6 10-20 GLUCOSE (test code = GLU) 471 mg/dL 74-106 BLOOD UREA NITROGEN (test code = BUN) 47 mg/dL 7-18 GLOMERULAR FILTRATION RATE (test code = GFR) mL/min >=6 0 CREATININE (test code = CREAT) mg/dL 0.55-1.02 BUN/CREATININE RATIO (test code = BUN/CREA) 10-2 0 CALCIUM (test code = CA) 7.8 mg/dL 8.5-10.1 RENAL FUNCTION [id number] 04:10:00* Test Item Value Reference Range Comments ALBUMIN (test code = ALB) 2.1 g/dL 3.4-5.0 PHOSPHORUS (test code = PHOS) mg/dL 2.5-4.9 [id number] 04:10:00* Test Item Value Reference Range Comments MAGNESIUM (test code = MAG) 1.7 mg/dL 1.8-2.4 CALCIUM [id number] 04:10:00* Test Item Value Reference Range Comments CALCIUM IONIZED (test code = MINDY) mmol/L 1.12-1.32 CBC W/AUTO [id number] 03:56:00* Test Item Value Reference Range Comments WHITE BLOOD CELL (test code = WBC) 6.7 K/mm3 4.5-12.5 RED BLOOD CELL (test code = RBC) 3.61 mill/mm3 3.7-5.2 HEMOGLOBIN (test code = HGB) 8.4 gram/dL 11.5-15.5 HEMATOCRIT (test code = HCT) 29.2 % 36.0-46.0 MEAN CELL VOLUME (test code = MCV) 80.9 fL 80-98 MEAN CELL HGB (test code = MCH) 23.3 picogram 27.0-33.0 MEAN CELL HGB CONCETRATION (test code = MCHC) 28.8 gram/dL 33 .0-36.0 RED CELL DISTRIBUTION WIDTH (test code = RDW) 17.1 % 11 .6-16.2 RED CELL DISTRIBUTION WIDTH SD (test code = RDW-SD) 50.4 fL 37.0-51.0 PLATELET COUNT (test code = PLT) 293 K/mm3 150-450 MEAN PLATELET VOLUME (test code = MPV) 10.6 fL 6.7-11.0 NEUTROPHIL % (test code = NT%) 70.2 % 39.0-69.0 IMMATURE GRANULOCYTE % (test code = IG%) 2.6 % 0.0-5.0 LYMPHOCYTE % (test code = LY%) 12.6 % 25.0-55.0 MONOCYTE % (test code = MO%) 10.4 % 0.0-10.0 EOSINOPHIL % (test code = EO%) 3.9 % 0.0-5.0 BASOPHIL % (test code = BA%) 0.3 % 0.0-1.0 NUCLEATED RBC % (test code = NRBC%) 0.0 % 0-0 NEUTROPHIL # (test code = NT#) 4.67 K/mm3 1.8-7.7 IMMATURE GRANULOCYTE # (test code = IG#) 0.17 x10 3/uL 0-0.03 LYMPHOCYTE # (test code = LY#) 0.84 K/mm3 1.0-5.0 MONOCYTE # (test code = MO#) 0.69 K/mm3 0-0.8 EOSINOPHIL # (test code = EO#) 0.26 K/mm3 0.0-0.5 BASOPHIL # (test code = BA#) 0.02 K/mm3 0.0-0.2 NUCLEATED RBC # (test code = NRBC#) 0.00 K/mm3 0.0-0.1 MANUAL DIFF REQUIRED (test code = MDIFF) NO, ONLY SCAN NEEDED DIFFERENTIAL [id number] 03:56:00* Test Item Value Reference Range Comments STAIN ACCEPTABILITY (test code = STN ACCEPTABLE) CABOT RINGS (test code = CAB) MORPHOLOGY COMMENT (test code = MOC) PLATELET ESTIMATE (test code = PLTEST) PLATELET MORPHOLOGY (test code = PLTMORPH) CBC W/AUTO [id number] 03:56:00* Test Item Value Reference Range Comments WHITE BLOOD CELL (test code = WBC) 6.7 K/mm3 4.5-12.5 RED BLOOD CELL (test code = RBC) 3.61 mill/mm3 3.7-5.2 HEMOGLOBIN (test code = HGB) 8.4 gram/dL 11.5-15.5 HEMATOCRIT (test code = HCT) 29.2 % 36.0-46.0 MEAN CELL VOLUME (test code = MCV) 80.9 fL 80-98 MEAN CELL HGB (test code = MCH) 23.3 picogram 27.0-33.0 MEAN CELL HGB CONCETRATION (test code = MCHC) 28.8 gram/dL 33 .0-36.0 RED CELL DISTRIBUTION WIDTH (test code = RDW) 17.1 % 11 .6-16.2 RED CELL DISTRIBUTION WIDTH SD (test code = RDW-SD) 50.4 fL 37.0-51.0 PLATELET COUNT (test code = PLT) 293 K/mm3 150-450 MEAN PLATELET VOLUME (test code = MPV) 10.6 fL 6.7-11.0 NEUTROPHIL % (test code = NT%) 70.2 % 39.0-69.0 IMMATURE GRANULOCYTE % (test code = IG%) 2.6 % 0.0-5.0 LYMPHOCYTE % (test code = LY%) 12.6 % 25.0-55.0 MONOCYTE % (test code = MO%) 10.4 % 0.0-10.0 EOSINOPHIL % (test code = EO%) 3.9 % 0.0-5.0 BASOPHIL % (test code = BA%) 0.3 % 0.0-1.0 NUCLEATED RBC % (test code = NRBC%) 0.0 % 0-0 NEUTROPHIL # (test code = NT#) 4.67 K/mm3 1.8-7.7 IMMATURE GRANULOCYTE # (test code = IG#) 0.17 x10 3/uL 0-0.03 LYMPHOCYTE # (test code = LY#) 0.84 K/mm3 1.0-5.0 MONOCYTE # (test code = MO#) 0.69 K/mm3 0-0.8 EOSINOPHIL # (test code = EO#) 0.26 K/mm3 0.0-0.5 BASOPHIL # (test code = BA#) 0.02 K/mm3 0.0-0.2 NUCLEATED RBC # (test code = NRBC#) 0.00 K/mm3 0.0-0.1 MANUAL DIFF REQUIRED (test code = MDIFF) NO, ONLY SCAN NEEDED DIFFERENTIAL [id number] 03:56:00* Test Item Value Reference Range Comments STAIN ACCEPTABILITY (test code = STN ACCEPTABLE) MORPHOLOGY COMMENT (test code = MOC) PLATELET ESTIMATE (test code = PLTEST) PLATELET MORPHOLOGY (test code = PLTMORPH) CBC W/AUTO [id number] 03:55:00* Test Item Value Reference Range Comments WHITE BLOOD CELL (test code = WBC) 6.7 K/mm3 4.5-12.5 RED BLOOD CELL (test code = RBC) 3.61 mill/mm3 3.7-5.2 HEMOGLOBIN (test code = HGB) 8.4 gram/dL 11.5-15.5 HEMATOCRIT (test code = HCT) 29.2 % 36.0-46.0 MEAN CELL VOLUME (test code = MCV) 80.9 fL 80-98 MEAN CELL HGB (test code = MCH) 23.3 picogram 27.0-33.0 MEAN CELL HGB CONCETRATION (test code = MCHC) 28.8 gram/dL 33 .0-36.0 RED CELL DISTRIBUTION WIDTH (test code = RDW) 17.1 % 11 .6-16.2 RED CELL DISTRIBUTION WIDTH SD (test code = RDW-SD) 50.4 fL 37.0-51.0 PLATELET COUNT (test code = PLT) 293 K/mm3 150-450 MEAN PLATELET VOLUME (test code = MPV) 10.6 fL 6.7-11.0 NEUTROPHIL % (test code = NT%) 70.2 % 39.0-69.0 IMMATURE GRANULOCYTE % (test code = IG%) 2.6 % 0.0-5.0 LYMPHOCYTE % (test code = LY%) 12.6 % 25.0-55.0 MONOCYTE % (test code = MO%) 10.4 % 0.0-10.0 EOSINOPHIL % (test code = EO%) 3.9 % 0.0-5.0 BASOPHIL % (test code = BA%) 0.3 % 0.0-1.0 NUCLEATED RBC % (test code = NRBC%) 0.0 % 0-0 NEUTROPHIL # (test code = NT#) 4.67 K/mm3 1.8-7.7 IMMATURE GRANULOCYTE # (test code = IG#) 0.17 x10 3/uL 0-0.03 LYMPHOCYTE # (test code = LY#) 0.84 K/mm3 1.0-5.0 MONOCYTE # (test code = MO#) 0.69 K/mm3 0-0.8 EOSINOPHIL # (test code = EO#) 0.26 K/mm3 0.0-0.5 BASOPHIL # (test code = BA#) 0.02 K/mm3 0.0-0.2 NUCLEATED RBC # (test code = NRBC#) 0.00 K/mm3 0.0-0.1 MANUAL DIFF REQUIRED (test code = MDIFF) NO, ONLY SCAN NEEDED DIFFERENTIAL [id number] 03:55:00* Test Item Value Reference Range Comments STAIN ACCEPTABILITY (test code = STN ACCEPTABLE) CABOT RINGS (test code = CAB) MORPHOLOGY COMMENT (test code = MOC) PLATELET ESTIMATE (test code = PLTEST) PLATELET MORPHOLOGY (test code = PLTMORPH) CBC W/AUTO [id number] 03:55:00* Test Item Value Reference Range Comments WHITE BLOOD CELL (test code = WBC) 6.7 K/mm3 4.5-12.5 RED BLOOD CELL (test code = RBC) 3.61 mill/mm3 3.7-5.2 HEMOGLOBIN (test code = HGB) 8.4 gram/dL 11.5-15.5 HEMATOCRIT (test code = HCT) 29.2 % 36.0-46.0 MEAN CELL VOLUME (test code = MCV) 80.9 fL 80-98 MEAN CELL HGB (test code = MCH) 23.3 picogram 27.0-33.0 MEAN CELL HGB CONCETRATION (test code = MCHC) 28.8 gram/dL 33 .0-36.0 RED CELL DISTRIBUTION WIDTH (test code = RDW) 17.1 % 11 .6-16.2 RED CELL DISTRIBUTION WIDTH SD (test code = RDW-SD) 50.4 fL 37.0-51.0 PLATELET COUNT (test code = PLT) 293 K/mm3 150-450 MEAN PLATELET VOLUME (test code = MPV) 10.6 fL 6.7-11.0 NEUTROPHIL % (test code = NT%) 70.2 % 39.0-69.0 IMMATURE GRANULOCYTE % (test code = IG%) 2.6 % 0.0-5.0 LYMPHOCYTE % (test code = LY%) 12.6 % 25.0-55.0 MONOCYTE % (test code = MO%) 10.4 % 0.0-10.0 EOSINOPHIL % (test code = EO%) 3.9 % 0.0-5.0 BASOPHIL % (test code = BA%) 0.3 % 0.0-1.0 NUCLEATED RBC % (test code = NRBC%) 0.0 % 0-0 NEUTROPHIL # (test code = NT#) 4.67 K/mm3 1.8-7.7 IMMATURE GRANULOCYTE # (test code = IG#) 0.17 x10 3/uL 0-0.03 LYMPHOCYTE # (test code = LY#) 0.84 K/mm3 1.0-5.0 MONOCYTE # (test code = MO#) 0.69 K/mm3 0-0.8 EOSINOPHIL # (test code = EO#) 0.26 K/mm3 0.0-0.5 BASOPHIL # (test code = BA#) 0.02 K/mm3 0.0-0.2 NUCLEATED RBC # (test code = NRBC#) 0.00 K/mm3 0.0-0.1 MANUAL DIFF REQUIRED (test code = MDIFF) NO, ONLY SCAN NEEDED DIFFERENTIAL [id number] 03:55:00* Test Item Value Reference Range Comments STAIN ACCEPTABILITY (test code = STN ACCEPTABLE) CABOT RINGS (test code = CAB) MORPHOLOGY COMMENT (test code = MOC) PLATELET ESTIMATE (test code = PLTEST) PLATELET MORPHOLOGY (test code = PLTMORPH) - RETRO [id number] 15:20:00 Name: RODRÍGUEZ JENKINS [facility] : 1955 Age/S: 63 / F [address] Unit #: [id number] Loc: [place] [address] Phys: López Landeros II, MD Acct: [id number] Dis Date: Status: ADM IN PHONE #: [phone] Exam Date: 05/06/2019 1145 FAX #: [phone] Reason: acute renal failure EXAMS: CPT CODE: [id number] [facility] [address] HISTORY: Acute renal failure. COMPARISON: CT abdomen and pelvis from May 03, 2019. Location: [facility]. Bilateral renal ultrasound: Both kidneys are hyperechogenic suggesting chronic medical renal disease. Poor visualization of the kidneys due to patient's large body habitus. No hydronephrosis or calyceal stones. Right kidney measured 10.5 x 6.2 x 4.5 cm. Left kidney measured 7.7 x 4 x 3.7 cm. Levi catheter in the urinary bladder which is decompressed and limited. IMPRESSION: Chronic medical renal disease without hydronephrosis or calyceal stones. Decompressed urinary bladder is n ondiagnostic. 20 at 1520 Reported and signed by: Kody Polo M.D. CC: Clay Newell MD; López Landeros II, MD; Chanell Harry Techno logist: PÉREZ HERNANDEZ RT(R),RDMS Trnscb Date/Time: 05/06/2019 (1520) t.[email or web address] Orig Print D/T: S: 05/06/2019 (1523) Probe: PAGE 1 Signed R eport UR SMEAR EOSINOPHIL [id number] 14:25:00 * Test Item Value Reference Range Comments UR SMEAR EOSINOPHIL COUNT (test code = EOSCTU) NONE SEEN per HPF NONE SEEN UR NA,[id number] 14:25:00* Test Item Value Reference Range Comments UR NA,RANDOM (test code = LEONARDO) 92 mmol/L 20-110 UR CREATININE [id number] 14:25:00* Test Item Value Reference Range Comments UR CREATININE RANDOM (test code = CREATU) 45.0 mg/dL 30-125 UR SMEAR EOSINOPHIL [id number] 14:18:00* Test Item Value Reference Range Comments UR SMEAR EOSINOPHIL COUNT (test code = EOSCTU) NONE SEEN per HPF NONE SEEN UR NA,[id number] 14:18:00* Test Item Value Reference Range Comments UR NA,RANDOM (test code = LEONARDO) 92 mmol/L 20-110 UR CREATININE [id number] 14:18:00* Test Item Value Reference Range Comments UR CREATININE RANDOM (test code = CREATU) mg/dL 30-125 UR SMEAR EOSINOPHIL [id number] 13:58:00* Test Item Value Reference Range Comments UR SMEAR EOSINOPHIL COUNT (test code = EOSCTU) NONE SEEN per HPF NONE SEEN UR NA,[id number] 13:58:00* Test Item Value Reference Range Comments UR NA,RANDOM (test code = LEONARDO) mmol/L 20-110 UR CREATININE [id number] 13:58:00* Test Item Value Reference Range Comments UR CREATININE RANDOM (test code = CREATU) mg/dL 30-125 BASIC METABOLIC [id number] 12:23:00* Test Item Value Reference Range Comments SODIUM (test code = NA) 142 mmol/L 136-145 POTASSIUM (test code = K) 4.5 mmol/L 3.5-5.1 CHLORIDE (test code = CL) 112.0 mmol/L 98-107 CARBON DIOXIDE (test code = CO2) 24.0 mmol/L 21-32 ANION GAP (test code = GAP) 10.5 10-20 GLUCOSE (test code = GLU) 118 mg/dL 74-106 BLOOD UREA NITROGEN (test code = BUN) 53 mg/dL 7-18 GLOMERULAR FILTRATION RATE (test code = GFR) 23 mL/min >=6 0 Estimated GFR by using Modified MDRD formula.Chronic kidney disease is defined as either kidney damageor GFR <60 mL/min/1.73 m2 for >3 months. CREATININE (test code = CREAT) 2.20 mg/dL 0.55-1.02 * *Note change in reference range due to change in reagent. BUN/CREATININE RATIO (test code = BUN/CREA) 24.1 10-2 0 CALCIUM (test code = CA) 8.7 mg/dL 8.5-10.1 ARTERIAL BLOOD [id number] 12:19:00* Test Item Value Reference Range Comments ARTERIAL BLOOD GAS PH (test code = PHA) 7.34 7.35-7.4 5 ARTERIAL BLOOD GAS PCO2 (test code = PCO2A) 43.0 mm Hg 35-4 5 ARTERIAL BLOOD GAS PO2 (test code = PO2A) 130.8 mmHg 80-100 BICARBONATE TOTAL HCO3 (test code = HCO3) 22.8 mmol/L 23.0-2 7.0 BASE EXCESS (test code = WESLEY) -2.8 mmol/L -3.0-5.0 ABG O2 SATURATION (test code = SATA) 98.2 % 90.0-98.0 ABG TYPE (test code = TYPEA) Arterial FIO2 (test code = FIO2A) 36.0 ABG L/M (test code = L/M) 4.00 L/MIN ABG SITE (test code = SITEA) Rt RADIAL ARTERY MODIFIED ALLENS (test code = MODALL) Yes CHECK PERFORMED HEMATOCRIT (test code = HCT/ABG) 27 % 35-47 TOTAL HGB (test code = THB) 9.3 gram/dL 11.5-15.5 HGB O2 SAT (test code = HBOSAT) 96.8 % 94.00-98.00 CARBOXYHEMOGLOBIN (test code = HOHGBT) 1.0 %totalHg 0.5-1.5 METHEMOGLOBIN (test code = METHGB) 0.4 % 0.0-1.50 O2 CONTENT (test code = O2CT) 12.9 % vol 18.0-22.0 BASIC METABOLIC [id number] 12:19:00* Test Item Value Reference Range Comments SODIUM (test code = NA) 142 mmol/L 136-145 POTASSIUM (test code = K) 4.5 mmol/L 3.5-5.1 CHLORIDE (test code = CL) 112.0 mmol/L 98-107 CARBON DIOXIDE (test code = CO2) mmol/L 21-32 ANION GAP (test code = GAP) 10-20 GLUCOSE (test code = GLU) mg/dL 74-106 BLOOD UREA NITROGEN (test code = BUN) mg/dL 7-18 GLOMERULAR FILTRATION RATE (test code = GFR) mL/min >=6 0 CREATININE (test code = CREAT) mg/dL 0.55-1.02 BUN/CREATININE RATIO (test code = BUN/CREA) 10-2 0 CALCIUM (test code = CA) mg/dL 8.5-10.1 - XR CHEST 1 [id number] 06:14:00 FAX: Clay Newell MD [phone] [place]: B St: ADM FAX: Cinda Riggs NP [phone] FAX: Chanell Antunez MD [phone] Name: RODRÍGUEZ JENKINS [facility] : 1955 Age/S: 63/F [address] [facility] Unit #: [id number] [facility] [place] [address] Phys: Cinda Riggs NP Acct: [id number] Dis Date: Status: ADM IN ONE #: [phone] Exam Date: 05/06/2019524 FAX #: [phone] Reason: sob EXAMS: CPT CODE: [id number] XR CHEST 1 V 86047 CLINICAL HISTO RY: Shortness of breath TECHNIQUE: AP chest x-ray CO MPARISON: Previous day. IMPRESSION: No signifi cant interval change. Lung volumes with bibasilar interstitial opacities and subsegmental atelectasis. No pleural effusion. Cardiomegaly. Ather osclerotic vascular calcification of the thoracic aorta. LOCATION: LP at 0614 Reported and si gned by: Shanda Cui D.O. CC: Clay Newell MD; Leslie Riggs NP; Chanell Harry Technologist: ISIAH JACOBSON JR Trnscrd Date/Time/By: 05/06/2019 (0614) : By: [email or web address] O rig Print D/T: S: 05/06/2019 (0656) PAGE 1 Signed Report CBC W/AUTO [id number] 03:12:00* Test Item Value Reference Range Comments WHITE BLOOD CELL (test code = WBC) 8.5 K/mm3 4.5-12.5 RED BLOOD CELL (test code = RBC) 3.54 mill/mm3 3.7-5.2 HEMOGLOBIN (test code = HGB) 8.3 gram/dL 11.5-15.5 HEMATOCRIT (test code = HCT) 29.0 % 36.0-46.0 MEAN CELL VOLUME (test code = MCV) 81.9 fL 80-98 MEAN CELL HGB (test code = MCH) 23.4 picogram 27.0-33.0 MEAN CELL HGB CONCETRATION (test code = MCHC) 28.6 gram/dL 33 .0-36.0 RED CELL DISTRIBUTION WIDTH (test code = RDW) 17.1 % 11 .6-16.2 RED CELL DISTRIBUTION WIDTH SD (test code = RDW-SD) 50.9 fL 37.0-51.0 PLATELET COUNT (test code = PLT) 312 K/mm3 150-450 MEAN PLATELET VOLUME (test code = MPV) 10.9 fL 6.7-11.0 IMMATURE GRANULOCYTE % (test code = IG%) 2.8 % 0.0-5.0 NUCLEATED RBC % (test code = NRBC%) 0.2 % 0-0 NEUTROPHIL # (test code = NT#) 6.55 K/mm3 1.8-7.7 IMMATURE GRANULOCYTE # (test code = IG#) 0.24 x10 3/uL 0-0.03 LYMPHOCYTE # (test code = LY#) 0.84 K/mm3 1.0-5.0 MONOCYTE # (test code = MO#) 0.75 K/mm3 0-0.8 EOSINOPHIL # (test code = EO#) 0.08 K/mm3 0.0-0.5 BASOPHIL # (test code = BA#) 0.03 K/mm3 0.0-0.2 NUCLEATED RBC # (test code = NRBC#) 0.02 K/mm3 0.0-0.1 MANUAL DIFF REQUIRED (test code = MDIFF) YES BASIC METABOLIC [id number] 03:06:00* Test Item Value Reference Range Comments SODIUM (test code = NA) 143 mmol/L 136-145 POTASSIUM (test code = K) 5.0 mmol/L 3.5-5.1 CHLORIDE (test code = CL) 112.0 mmol/L 98-107 CARBON DIOXIDE (test code = CO2) 23.0 mmol/L 21-32 ANION GAP (test code = GAP) 13.0 10-20 GLUCOSE (test code = GLU) 116 mg/dL 74-106 BLOOD UREA NITROGEN (test code = BUN) 52 mg/dL 7-18 GLOMERULAR FILTRATION RATE (test code = GFR) 19 mL/min >=6 0 Estimated GFR by using Modified MDRD formula.Chronic kidney disease is defined as either kidney damageor GFR <60 mL/min/1.73 m2 for >3 months. CREATININE (test code = CREAT) 2.50 mg/dL 0.55-1.02 * *Note change in reference range due to change in reagent. BUN/CREATININE RATIO (test code = BUN/CREA) 20.8 10-2 0 CALCIUM (test code = CA) 8.4 mg/dL 8.5-10.1 BASIC METABOLIC [id number] 02:58:00* Test Item Value Reference Range Comments SODIUM (test code = NA) 143 mmol/L 136-145 POTASSIUM (test code = K) 5.0 mmol/L 3.5-5.1 CHLORIDE (test code = CL) 112.0 mmol/L 98-107 CARBON DIOXIDE (test code = CO2) mmol/L 21-32 ANION GAP (test code = GAP) 10-20 GLUCOSE (test code = GLU) mg/dL 74-106 BLOOD UREA NITROGEN (test code = BUN) mg/dL 7-18 GLOMERULAR FILTRATION RATE (test code = GFR) mL/min >=6 0 CREATININE (test code = CREAT) mg/dL 0.55-1.02 BUN/CREATININE RATIO (test code = BUN/CREA) 10-2 0 CALCIUM (test code = CA) mg/dL 8.5-10.1 CBC W/MANUAL [id number] 23:01:00* Test Item Value Reference Range Comments WHITE BLOOD CELL (test code = WBC) 11.9 K/mm3 4.5-12.5 RED BLOOD CELL (test code = RBC) 3.93 mill/mm3 3.7-5.2 HEMOGLOBIN (test code = HGB) 9.1 gram/dL 11.5-15.5 HEMATOCRIT (test code = HCT) 32.6 % 36.0-46.0 MEAN CELL VOLUME (test code = MCV) 83.0 fL 80-98 MEAN CELL HGB (test code = MCH) 23.2 picogram 27.0-33.0 MEAN CELL HGB CONCETRATION (test code = MCHC) 27.9 gram/dL 33 .0-36.0 RED CELL DISTRIBUTION WIDTH (test code = RDW) 17.0 % 11 .6-16.2 RED CELL DISTRIBUTION WIDTH SD (test code = RDW-SD) 51.8 fL 37.0-51.0 PLATELET COUNT (test code = PLT) 354 K/mm3 150-450 MEAN PLATELET VOLUME (test code = MPV) 10.2 fL 6.7-11.0 IMMATURE GRANULOCYTE % (test code = IG%) 2.9 % 0.0-5.0 NUCLEATED RBC % (test code = NRBC%) 0.0 % 0-0 NEUTROPHIL # (test code = NT#) 9.98 K/mm3 1.8-7.7 IMMATURE GRANULOCYTE # (test code = IG#) 0.34 x10 3/uL 0-0.03 LYMPHOCYTE # (test code = LY#) 0.66 K/mm3 1.0-5.0 MONOCYTE # (test code = MO#) 0.85 K/mm3 0-0.8 EOSINOPHIL # (test code = EO#) 0.05 K/mm3 0.0-0.5 BASOPHIL # (test code = BA#) 0.02 K/mm3 0.0-0.2 NUCLEATED RBC # (test code = NRBC#) 0.00 K/mm3 0.0-0.1 MANUAL DIFF REQUIRED (test code = MDIFF) YES STAIN ACCEPTABILITY (test code = STN ACCEPTABLE) STAIN ACCEPTABL E TOTAL CELLS COUNTED (test code = TCC) 115 #CELLS SEGMENTED NEUTROPHILS (test code = SEG) 93.1 % 39-69 BAND NEUTROPHIL (test code = BAND) 0 % 0-10 LYMPHOCYTE (test code = LYMPH) 2.6 % 25-55 REACTIVE LYMPH (test code = RELYMPH) 1.7 % MONOCYTE (test code = MON) 1.7 % 0-10 EOSINOPHIL (test code = EOS) 0.9 % 0.0-5.0 BASOPHIL (test code = BASO) 0 % 0-1.0 METAMYELOCYTE (test code = META) 0 % 0-0 MYELOCYTE (test code = MYELO) 0 % 0.0-0.0 PROMYELOCYTE (test code = PROM) 0 % 0-0 HYPOCHROMIA (test code = HYPO) 1+ POIKILOCYTOSIS (test code = POIK) 1+ ANISOCYTOSIS (test code = ANISO) 1+ MICROCYTOSIS (test code = MICR) 1+ CRENATED CELLS (test code = CREN) 1+ PLATELET ESTIMATE (test code = PLTEST) ADEQUATE PLATELET MORPHOLOGY (test code = PLTMORPH) NORMAL IMMATURE FORMS (test code = IMMAT) 0 % 0-0 PATIENT NOT IN ROOMCOMPREHENSIVE METABOLIC [id number] 22:55:00* Test Item Value Reference Range Comments SODIUM (test code = NA) 140 mmol/L 136-145 POTASSIUM (test code = K) 5.0 mmol/L 3.5-5.1 CHLORIDE (test code = CL) 110.0 mmol/L 98-107 CARBON DIOXIDE (test code = CO2) 23.0 mmol/L 21-32 ANION GAP (test code = GAP) 12.0 10-20 GLUCOSE (test code = GLU) 169 mg/dL 74-106 BLOOD UREA NITROGEN (test code = BUN) 57 mg/dL 7-18 GLOMERULAR FILTRATION RATE (test code = GFR) 19 mL/min >=6 0 Estimated GFR by using Modified MDRD formula.Chronic kidney disease is defined as either kidney damageor GFR <60 mL/min/1.73 m2 for >3 months. CREATININE (test code = CREAT) 2.60 mg/dL 0.55-1.02 * *Note change in reference range due to change in reagent. BUN/CREATININE RATIO (test code = BUN/CREA) 21.9 10-2 0 TOTAL PROTEIN (test code = PROT) 6.9 gram/dL 6.4-8.2 ALBUMIN (test code = ALB) 2.5 g/dL 3.4-5.0 GLOBULIN (test code = GLOB) 4.4 gram/dL 2.7-4.2 ALBUMIN/GLOBULIN RATIO (test code = A/G) 0.6 0.75-1. 50 CALCIUM (test code = CA) 8.6 mg/dL 8.5-10.1 BILIRUBIN TOTAL (test code = BILT) 0.40 mg/dL 0.0-1.0 SGOT/AST (test code = AST) 30 IUnit/L 15-37 SGPT/ALT (test code = ALT) 60 IUnit/L 12-78 ALKALINE PHOSPHATASE TOTAL (test code = ALKP) 128 IUnit/L 45 -117 Note change in reference range due to change in reagent. PATIENT NOT IN ROOMLIPID PROFILE (CORONARY RISK)2019-05-05 22:55:00* Test Item Value Reference Range Comments TRIGLYCERIDES (test code = TRIG) 133 mg/dL 20-150 CHOLESTEROL (test code = CHOL) 148 mg/dL 0-200 CHOLESTEROL/HDL RATIO (test code = CHOLHDL) 3.0 RATIO 0-4. 9 RISK ASSOCIATED WITH CHOL/HDL RATIOS: Risk Male Female1/2 AVERAGE 3.43 3.27AVERAGE 4.97 4.442X AVERAGE 9.55 7.053X AVERAGE 23.39 11.04 REFERENCE VALUE IS RELATED TO RISK LEVELS ASRECOMMENDED BY THE SCARLET. HEART, LUNG, AND BLOOD INST. HDL CHOLESTEROL (test code = HDL) 48 mg/dL 40-60 LIPOPROTEIN LDL (test code = LDL) 77 mg/dL 100-129 Reference Interval: mg/dL mmol/L Optimal <100 <2.6Near/above optimal 100-129 2.6- 3.3Borderline High 130-159 3.4-4.1High 160-189 4.1-4.9Very High >=190 >=4.9========= This LDL result is a direct measurement.========= PATIENT NOT IN [id number] 22:55:00* Test Item Value Reference Range Comments PHOSPHORUS (test code = PHOS) 5.0 mg/dL 2.5-4.9 PATIENT NOT IN ROOMCREATINE KINASE (CK)2019-05-05 22:55:00* Test Item Value Reference Range Comments CREATINE KINASE (CK) (test code = CK) 418 IUnit/L 26-208 PATIENT NOT IN [id number] 22:55:00* Test Item Value Reference Range Comments MAGNESIUM (test code = MAG) 1.9 mg/dL 1.8-2.4 PATIENT NOT IN ROOMCALCIUM [id number] 22:55:00* Test Item Value Reference Range Comments CALCIUM IONIZED (test code = MINDY) 1.26 mmol/L 1.12-1.32 PATIENT NOT IN ROOMLACTIC [id number] 22:49:00* Test Item Value Reference Range Comments LACTIC ACID (test code = LACT) 1.3 mmol/L 0.4-1.9 PATIENT NOT IN ROOMCOMPREHENSIVE METABOLIC [id number] 22:41:00* Test Item Value Reference Range Comments SODIUM (test code = NA) 140 mmol/L 136-145 POTASSIUM (test code = K) 5.0 mmol/L 3.5-5.1 CHLORIDE (test code = CL) 110.0 mmol/L 98-107 CARBON DIOXIDE (test code = CO2) mmol/L 21-32 ANION GAP (test code = GAP) 10-20 GLUCOSE (test code = GLU) mg/dL 74-106 BLOOD UREA NITROGEN (test code = BUN) mg/dL 7-18 GLOMERULAR FILTRATION RATE (test code = GFR) mL/min >=6 0 CREATININE (test code = CREAT) mg/dL 0.55-1.02 BUN/CREATININE RATIO (test code = BUN/CREA) 10-2 0 TOTAL PROTEIN (test code = PROT) gram/dL 6.4-8.2 ALBUMIN (test code = ALB) g/dL 3.4-5.0 GLOBULIN (test code = GLOB) gram/dL 2.7-4.2 ALBUMIN/GLOBULIN RATIO (test code = A/G) 0.75-1. 50 CALCIUM (test code = CA) 8.6 mg/dL 8.5-10.1 BILIRUBIN TOTAL (test code = BILT) mg/dL 0.0-1.0 SGOT/AST (test code = AST) IUnit/L 15-37 SGPT/ALT (test code = ALT) IUnit/L 12-78 ALKALINE PHOSPHATASE TOTAL (test code = ALKP) IUnit/L 45 -117 PATIENT NOT IN ROOMLIPID PROFILE (CORONARY RISK)2019-05-05 22:41:00* Test Item Value Reference Range Comments TRIGLYCERIDES (test code = TRIG) mg/dL 20-150 CHOLESTEROL (test code = CHOL) mg/dL 0-200 CHOLESTEROL/HDL RATIO (test code = CHOLHDL) RATIO 0-4. 9 HDL CHOLESTEROL (test code = HDL) mg/dL 40-60 LIPOPROTEIN LDL (test code = LDL) mg/dL 100-129 PATIENT NOT IN [id number] 22:41:00* Test Item Value Reference Range Comments PHOSPHORUS (test code = PHOS) mg/dL 2.5-4.9 PATIENT NOT IN ROOMCREATINE KINASE (CK)2019-05-05 22:41:00* Test Item Value Reference Range Comments CREATINE KINASE (CK) (test code = CK) IUnit/L 26-208 PATIENT NOT IN [id number] 22:41:00* Test Item Value Reference Range Comments MAGNESIUM (test code = MAG) mg/dL 1.8-2.4 PATIENT NOT IN ROOMCALCIUM [id number] 22:41:00* Test Item Value Reference Range Comments CALCIUM IONIZED (test code = MINDY) 1.26 mmol/L 1.12-1.32 PATIENT NOT IN ROOMCBC W/MANUAL [id number] 22:35:00* Test Item Value Reference Range Comments WHITE BLOOD CELL (test code = WBC) 11.9 K/mm3 4.5-12.5 RED BLOOD CELL (test code = RBC) 3.93 mill/mm3 3.7-5.2 HEMOGLOBIN (test code = HGB) 9.1 gram/dL 11.5-15.5 HEMATOCRIT (test code = HCT) 32.6 % 36.0-46.0 MEAN CELL VOLUME (test code = MCV) 83.0 fL 80-98 MEAN CELL HGB (test code = MCH) 23.2 picogram 27.0-33.0 MEAN CELL HGB CONCETRATION (test code = MCHC) 27.9 gram/dL 33 .0-36.0 RED CELL DISTRIBUTION WIDTH (test code = RDW) 17.0 % 11 .6-16.2 RED CELL DISTRIBUTION WIDTH SD (test code = RDW-SD) 51.8 fL 37.0-51.0 PLATELET COUNT (test code = PLT) 354 K/mm3 150-450 MEAN PLATELET VOLUME (test code = MPV) 10.2 fL 6.7-11.0 IMMATURE GRANULOCYTE % (test code = IG%) 2.9 % 0.0-5.0 NUCLEATED RBC % (test code = NRBC%) 0.0 % 0-0 NEUTROPHIL # (test code = NT#) 9.98 K/mm3 1.8-7.7 IMMATURE GRANULOCYTE # (test code = IG#) 0.34 x10 3/uL 0-0.03 LYMPHOCYTE # (test code = LY#) 0.66 K/mm3 1.0-5.0 MONOCYTE # (test code = MO#) 0.85 K/mm3 0-0.8 EOSINOPHIL # (test code = EO#) 0.05 K/mm3 0.0-0.5 BASOPHIL # (test code = BA#) 0.02 K/mm3 0.0-0.2 NUCLEATED RBC # (test code = NRBC#) 0.00 K/mm3 0.0-0.1 MANUAL DIFF REQUIRED (test code = MDIFF) YES STAIN ACCEPTABILITY (test code = STN ACCEPTABLE) TOTAL CELLS COUNTED (test code = TCC) #CELLS SEGMENTED NEUTROPHILS (test code = SEG) % 39-69 LYMPHOCYTE (test code = LYMPH) % 25-55 MONOCYTE (test code = MON) % 0-10 MORPHOLOGY COMMENT (test code = MOC) PLATELET ESTIMATE (test code = PLTEST) PLATELET MORPHOLOGY (test code = PLTMORPH) PATIENT NOT IN ROOMCOMPREHENSIVE METABOLIC [id number] 22:33:00* Test Item Value Reference Range Comments SODIUM (test code = NA) mmol/L 136-145 POTASSIUM (test code = K) mmol/L 3.5-5.1 CHLORIDE (test code = CL) mmol/L 98-107 CARBON DIOXIDE (test code = CO2) mmol/L 21-32 ANION GAP (test code = GAP) 10-20 GLUCOSE (test code = GLU) mg/dL 74-106 BLOOD UREA NITROGEN (test code = BUN) mg/dL 7-18 GLOMERULAR FILTRATION RATE (test code = GFR) mL/min >=6 0 CREATININE (test code = CREAT) mg/dL 0.55-1.02 BUN/CREATININE RATIO (test code = BUN/CREA) 10-2 0 TOTAL PROTEIN (test code = PROT) gram/dL 6.4-8.2 ALBUMIN (test code = ALB) g/dL 3.4-5.0 GLOBULIN (test code = GLOB) gram/dL 2.7-4.2 ALBUMIN/GLOBULIN RATIO (test code = A/G) 0.75-1. 50 CALCIUM (test code = CA) mg/dL 8.5-10.1 BILIRUBIN TOTAL (test code = BILT) mg/dL 0.0-1.0 SGOT/AST (test code = AST) IUnit/L 15-37 SGPT/ALT (test code = ALT) IUnit/L 12-78 ALKALINE PHOSPHATASE TOTAL (test code = ALKP) IUnit/L 45 -117 PATIENT NOT IN ROOMLIPID PROFILE (CORONARY RISK)2019-05-05 22:33:00* Test Item Value Reference Range Comments TRIGLYCERIDES (test code = TRIG) mg/dL 20-150 CHOLESTEROL (test code = CHOL) mg/dL 0-200 CHOLESTEROL/HDL RATIO (test code = CHOLHDL) RATIO 0-4. 9 HDL CHOLESTEROL (test code = HDL) mg/dL 40-60 LIPOPROTEIN LDL (test code = LDL) mg/dL 100-129 PATIENT NOT IN [id number] 22:33:00* Test Item Value Reference Range Comments PHOSPHORUS (test code = PHOS) mg/dL 2.5-4.9 PATIENT NOT IN ROOMCREATINE KINASE (CK)2019-05-05 22:33:00* Test Item Value Reference Range Comments CREATINE KINASE (CK) (test code = CK) IUnit/L 26-208 PATIENT NOT IN [id number] 22:33:00* Test Item Value Reference Range Comments MAGNESIUM (test code = MAG) mg/dL 1.8-2.4 PATIENT NOT IN ROOMCALCIUM [id number] 22:33:00* Test Item Value Reference Range Comments CALCIUM IONIZED (test code = MINDY) 1.26 mmol/L 1.12-1.32 PATIENT NOT IN ROOMPROTHROMBIN [id number] 22:33:00* Test Item Value Reference Range Comments PROTHROMBIN TIME PATIENT (test code = PTP) 13.3 seconds 9.0-1 4.0 INTERNATIONAL NORMAL RATIO (test code = INR) 1.1 0.8 -1.2 The therapeutic range for oral anticoagulant therapy formost indications is an international normalized ratio (INR)of between 2.0 and 3.0. The recommended therapeutic INRrange for various clinical situations is listed below: Clinical Situation INR range Pulmonary e mbolism treatment (2.0-3.0)Venous thrombosis treatmentVenous thrombosis prophylaxis (high risk surgery)Prevention of systemic embolism from: Acute myocardial infarction Valvular heart disease Atrial fibrillation Mechanical prosthetic heart valves (2.5-3.5) IS PATIENT ON ANTICOAGULANTS? NPATIENT NOT IN ROOMCB W/MANUAL [id number] 22:26:00* Test Item Value Reference Range Comments WHITE BLOOD CELL (test code = WBC) 11.9 K/mm3 4.5-12.5 RED BLOOD CELL (test code = RBC) 3.93 mill/mm3 3.7-5.2 HEMOGLOBIN (test code = HGB) 9.1 gram/dL 11.5-15.5 HEMATOCRIT (test code = HCT) 32.6 % 36.0-46.0 MEAN CELL VOLUME (test code = MCV) 83.0 fL 80-98 MEAN CELL HGB (test code = MCH) 23.2 picogram 27.0-33.0 MEAN CELL HGB CONCETRATION (test code = MCHC) 27.9 gram/dL 33 .0-36.0 RED CELL DISTRIBUTION WIDTH (test code = RDW) 17.0 % 11 .6-16.2 RED CELL DISTRIBUTION WIDTH SD (test code = RDW-SD) 51.8 fL 37.0-51.0 PLATELET COUNT (test code = PLT) 354 K/mm3 150-450 MEAN PLATELET VOLUME (test code = MPV) 10.2 fL 6.7-11.0 IMMATURE GRANULOCYTE % (test code = IG%) 2.9 % 0.0-5.0 NUCLEATED RBC % (test code = NRBC%) 0.0 % 0-0 NEUTROPHIL # (test code = NT#) 9.98 K/mm3 1.8-7.7 IMMATURE GRANULOCYTE # (test code = IG#) 0.34 x10 3/uL 0-0.03 LYMPHOCYTE # (test code = LY#) 0.66 K/mm3 1.0-5.0 MONOCYTE # (test code = MO#) 0.85 K/mm3 0-0.8 EOSINOPHIL # (test code = EO#) 0.05 K/mm3 0.0-0.5 BASOPHIL # (test code = BA#) 0.02 K/mm3 0.0-0.2 NUCLEATED RBC # (test code = NRBC#) 0.00 K/mm3 0.0-0.1 MANUAL DIFF REQUIRED (test code = MDIFF) YES STAIN ACCEPTABILITY (test code = STN ACCEPTABLE) TOTAL CELLS COUNTED (test code = TCC) #CELLS SEGMENTED NEUTROPHILS (test code = SEG) % 39-69 LYMPHOCYTE (test code = LYMPH) % 25-55 MONOCYTE (test code = MON) % 0-10 EOSINOPHIL (test code = EOS) % 0.0-5.0 CABOT RINGS (test code = CAB) MORPHOLOGY COMMENT (test code = MOC) PLATELET ESTIMATE (test code = PLTEST) PLATELET MORPHOLOGY (test code = PLTMORPH) [facility] [id number] 22:26:00* Test Item Value Reference Range Comments WHITE BLOOD CELL (test code = WBC) 11.9 K/mm3 4.5-12.5 RED BLOOD CELL (test code = RBC) 3.93 mill/mm3 3.7-5.2 HEMOGLOBIN (test code = HGB) 9.1 gram/dL 11.5-15.5 HEMATOCRIT (test code = HCT) 32.6 % 36.0-46.0 MEAN CELL VOLUME (test code = MCV) 83.0 fL 80-98 MEAN CELL HGB (test code = MCH) 23.2 picogram 27.0-33.0 MEAN CELL HGB CONCETRATION (test code = MCHC) 27.9 gram/dL 33 .0-36.0 RED CELL DISTRIBUTION WIDTH (test code = RDW) 17.0 % 11 .6-16.2 RED CELL DISTRIBUTION WIDTH SD (test code = RDW-SD) 51.8 fL 37.0-51.0 PLATELET COUNT (test code = PLT) 354 K/mm3 150-450 MEAN PLATELET VOLUME (test code = MPV) 10.2 fL 6.7-11.0 IMMATURE GRANULOCYTE % (test code = IG%) 2.9 % 0.0-5.0 NUCLEATED RBC % (test code = NRBC%) 0.0 % 0-0 NEUTROPHIL # (test code = NT#) 9.98 K/mm3 1.8-7.7 IMMATURE GRANULOCYTE # (test code = IG#) 0.34 x10 3/uL 0-0.03 LYMPHOCYTE # (test code = LY#) 0.66 K/mm3 1.0-5.0 MONOCYTE # (test code = MO#) 0.85 K/mm3 0-0.8 EOSINOPHIL # (test code = EO#) 0.05 K/mm3 0.0-0.5 BASOPHIL # (test code = BA#) 0.02 K/mm3 0.0-0.2 NUCLEATED RBC # (test code = NRBC#) 0.00 K/mm3 0.0-0.1 MANUAL DIFF REQUIRED (test code = MDIFF) YES STAIN ACCEPTABILITY (test code = STN ACCEPTABLE) TOTAL CELLS COUNTED (test code = TCC) #CELLS SEGMENTED NEUTROPHILS (test code = SEG) % 39-69 LYMPHOCYTE (test code = LYMPH) % 25-55 MONOCYTE (test code = MON) % 0-10 EOSINOPHIL (test code = EOS) % 0.0-5.0 CABOT RINGS (test code = CAB) MORPHOLOGY COMMENT (test code = MOC) PLATELET ESTIMATE (test code = PLTEST) PLATELET MORPHOLOGY (test code = PLTMORPH) PATIENT NOT IN ROOMCBC W/MANUAL [id number] 22:26:00* Test Item Value Reference Range Comments WHITE BLOOD CELL (test code = WBC) 11.9 K/mm3 4.5-12.5 RED BLOOD CELL (test code = RBC) 3.93 mill/mm3 3.7-5.2 HEMOGLOBIN (test code = HGB) 9.1 gram/dL 11.5-15.5 HEMATOCRIT (test code = HCT) 32.6 % 36.0-46.0 MEAN CELL VOLUME (test code = MCV) 83.0 fL 80-98 MEAN CELL HGB (test code = MCH) 23.2 picogram 27.0-33.0 MEAN CELL HGB CONCETRATION (test code = MCHC) 27.9 gram/dL 33 .0-36.0 RED CELL DISTRIBUTION WIDTH (test code = RDW) 17.0 % 11 .6-16.2 RED CELL DISTRIBUTION WIDTH SD (test code = RDW-SD) 51.8 fL 37.0-51.0 PLATELET COUNT (test code = PLT) 354 K/mm3 150-450 MEAN PLATELET VOLUME (test code = MPV) 10.2 fL 6.7-11.0 IMMATURE GRANULOCYTE % (test code = IG%) 2.9 % 0.0-5.0 NUCLEATED RBC % (test code = NRBC%) 0.0 % 0-0 NEUTROPHIL # (test code = NT#) 9.98 K/mm3 1.8-7.7 IMMATURE GRANULOCYTE # (test code = IG#) 0.34 x10 3/uL 0-0.03 LYMPHOCYTE # (test code = LY#) 0.66 K/mm3 1.0-5.0 MONOCYTE # (test code = MO#) 0.85 K/mm3 0-0.8 EOSINOPHIL # (test code = EO#) 0.05 K/mm3 0.0-0.5 BASOPHIL # (test code = BA#) 0.02 K/mm3 0.0-0.2 NUCLEATED RBC # (test code = NRBC#) 0.00 K/mm3 0.0-0.1 MANUAL DIFF REQUIRED (test code = MDIFF) YES STAIN ACCEPTABILITY (test code = STN ACCEPTABLE) TOTAL CELLS COUNTED (test code = TCC) #CELLS SEGMENTED NEUTROPHILS (test code = SEG) % 39-69 LYMPHOCYTE (test code = LYMPH) % 25-55 MONOCYTE (test code = MON) % 0-10 EOSINOPHIL (test code = EOS) % 0.0-5.0 MORPHOLOGY COMMENT (test code = MOC) PLATELET ESTIMATE (test code = PLTEST) PLATELET MORPHOLOGY (test code = PLTMORPH) PATIENT NOT IN ROOMCBC W/MANUAL [id number] 22:26:00* Test Item Value Reference Range Comments WHITE BLOOD CELL (test code = WBC) 11.9 K/mm3 4.5-12.5 RED BLOOD CELL (test code = RBC) 3.93 mill/mm3 3.7-5.2 HEMOGLOBIN (test code = HGB) 9.1 gram/dL 11.5-15.5 HEMATOCRIT (test code = HCT) 32.6 % 36.0-46.0 MEAN CELL VOLUME (test code = MCV) 83.0 fL 80-98 MEAN CELL HGB (test code = MCH) 23.2 picogram 27.0-33.0 MEAN CELL HGB CONCETRATION (test code = MCHC) 27.9 gram/dL 33 .0-36.0 RED CELL DISTRIBUTION WIDTH (test code = RDW) 17.0 % 11 .6-16.2 RED CELL DISTRIBUTION WIDTH SD (test code = RDW-SD) 51.8 fL 37.0-51.0 PLATELET COUNT (test code = PLT) 354 K/mm3 150-450 MEAN PLATELET VOLUME (test code = MPV) 10.2 fL 6.7-11.0 IMMATURE GRANULOCYTE % (test code = IG%) 2.9 % 0.0-5.0 NUCLEATED RBC % (test code = NRBC%) 0.0 % 0-0 NEUTROPHIL # (test code = NT#) 9.98 K/mm3 1.8-7.7 IMMATURE GRANULOCYTE # (test code = IG#) 0.34 x10 3/uL 0-0.03 LYMPHOCYTE # (test code = LY#) 0.66 K/mm3 1.0-5.0 MONOCYTE # (test code = MO#) 0.85 K/mm3 0-0.8 EOSINOPHIL # (test code = EO#) 0.05 K/mm3 0.0-0.5 BASOPHIL # (test code = BA#) 0.02 K/mm3 0.0-0.2 NUCLEATED RBC # (test code = NRBC#) 0.00 K/mm3 0.0-0.1 MANUAL DIFF REQUIRED (test code = MDIFF) YES STAIN ACCEPTABILITY (test code = STN ACCEPTABLE) TOTAL CELLS COUNTED (test code = TCC) #CELLS SEGMENTED NEUTROPHILS (test code = SEG) % 39-69 LYMPHOCYTE (test code = LYMPH) % 25-55 MONOCYTE (test code = MON) % 0-10 EOSINOPHIL (test code = EOS) % 0.0-5.0 CABOT RINGS (test code = CAB) MORPHOLOGY COMMENT (test code = MOC) PLATELET ESTIMATE (test code = PLTEST) PLATELET MORPHOLOGY (test code = PLTMORPH) PATIENT NOT IN ROOMARTERIAL BLOOD [id number] 22:10:00* Test Item Value Reference Range Comments ARTERIAL BLOOD GAS PH (test code = PHA) 7.25 7.35-7.4 5 ARTERIAL BLOOD GAS PCO2 (test code = PCO2A) 43.9 mm Hg 35-4 5 ARTERIAL BLOOD GAS PO2 (test code = PO2A) 353.9 mmHg 80-100 BICARBONATE TOTAL HCO3 (test code = HCO3) 18.7 mmol/L 23.0-2 7.0 BASE EXCESS (test code = WESLEY) -8.2 mmol/L -3.0-5.0 Liliana purdy called to and read back by Cydney 22:07 - 05/05/2019; by Jm ABG O2 SATURATION (test code = SATA) 99.5 % 90.0-98.0 ABG TYPE (test code = TYPEA) Arterial FIO2 (test code = FIO2A) 100.0 ABG VENT MODE (test code = MODEA) BiPAP ABG VENT RESP RATE (test code = RRA) 16.0 per min ABG PEEP (test code = PEEPA) 6.0 cmH2O ABG SITE (test code = SITEA) Rt RADIAL ARTERY MODIFIED ALLENS (test code = MODALL) Yes CHECK PERFORMED HEMATOCRIT (test code = HCT/ABG) 31 % 35-47 TOTAL HGB (test code = THB) 10.4 gram/dL 11.5-15.5 HGB O2 SAT (test code = HBOSAT) 98.7 % 94.00-98.00 CARBOXYHEMOGLOBIN (test code = HOHGBT) 0.5 %totalHg 0.5-1.5 METHEMOGLOBIN (test code = METHGB) 0.3 % 0.0-1.50 O2 CONTENT (test code = O2CT) 15.4 % vol 18.0-22.0 - XR CHEST 1 [id number] 21:21:00 FAX: Clay Newell MD [phone] [place]: B St: ADM FAX: Cinda Riggs NP [phone] FAX: Chanell Antunez MD [phone] Name: RODRÍGUEZ JENKINS [facility] : 1955 Age/S: 63/F [address] Unit #: [id number] Loc: [place] [address] Phys: Cinda Riggs NP Acct: [id number] Dis Date: Status: ADM IN PH ONE #: [phone] Exam Date: 05/05/20192042 FAX #: [phone] Reason: SOB, WHEEZING EXAMS: CPT CODE: [id number] XR CHEST 1 V 19112 EXAM: Chest x- ray, one view; INFORMATION: Shortness of breath, wheezing; IMPRESSION: 1. Lungs are slightly better aerated compared with the study obtained earlier today; mild basilar atelectatic changes. 2. Persistent moderate cardiomegaly. Location code: [facility] at 2120 Reported and signed by: Isidoro Jeff M.D. CC: Clay Newell MD; Cinda Riggs NP; Chanell Harry Technologist: SHARI PHILLIPS RT (R); ... Trnscrd Date/Time/By: 05/05/2019 (2120) : By: [email or web address] [email or web address] Orig Print D/T: S: 05/05/2019 (2123) P AGE 1 Signed Report ARTERIAL BLOOD [id number] 20:46:00* Test Item Value Reference Range Comments ARTERIAL BLOOD GAS PH (test code = PHA) 7.18 7.35-7.4 5 Results called to and read back by cydney 20:42 - 05/05/2019; by [email or web address] ARTERIAL BLOOD GAS PCO2 (test code = PCO2A) 55.9 mm Hg 35-4 5 ARTERIAL BLOOD GAS PO2 (test code = PO2A) 39.6 mmHg 80-100 Results called to and read back by cydney 20:42 - 05/05/2019; by [email or web address] BICARBONATE TOTAL HCO3 (test code = HCO3) 20.4 mmol/L 23.0-2 7.0 BASE EXCESS (test code = WESLEY) -8.0 mmol/L -3.0-5.0 Liliana purdy called to and read back by cydney 20:42 - 05/05/2019; by [email or web address] ABG O2 SATURATION (test code = SATA) 64.7 % 90.0-98.0 ABG TYPE (test code = TYPEA) Arterial FIO2 (test code = FIO2A) 100.0 ABG SITE (test code = SITEA) Rt RADIAL ARTERY MODIFIED ALLENS (test code = MODALL) Yes CHECK PERFORMED HEMATOCRIT (test code = HCT/ABG) 31 % 35-47 TOTAL HGB (test code = THB) 10.4 gram/dL 11.5-15.5 HGB O2 SAT (test code = HBOSAT) 63.9 % 94.00-98.00 CARBOXYHEMOGLOBIN (test code = HOHGBT) 1.1 %totalHg 0.5-1.5 METHEMOGLOBIN (test code = METHGB) 0.1 % 0.0-1.50 O2 CONTENT (test code = O2CT) 9.4 % vol 18.0-22.0 [id number] 19:15:00* Test Item Value Reference Range Comments GLYCOSYLATED HEMOGLOBIN (HA1C) (test code = GLYHGB) 5.8 % HbA1 SUGGESTED DIAGNOSIS: HbA1C (%) Diabetic >6.4Prediabetes 5.7 - 6.4Normal <5.7 ESTIMATED AVERAGE GLUCOSE (test code = EAG) 120 MG/DL [id number] 17:19:00 RUN DATE: 05/05/19 [place] - Lab PAGE 1 RUN TIME: 1720 Specimen Inqui ry RUN USER: INTERFACE PATIENT: RODRÍGUEZ JENKINS ACCT #: [id number] LOC: [place] #: [id number] AGE/SX: 63/F ROOM: [facility] RE05/03/19REG DR: Clay Newell MD : 55 BED: A DIS: STATUS: ADM IN TLOC: SPEC #: [id number] RECD: 05/04/19 STATUS: HOWARD RE #: [id number] BART: 05/03/19- SUBM DR: Bjorn Dixon MD ENTERED: 05/04/19 SP TYPE: DEVICE OTHR DR: Chanell Harry MD ORDERED: GROSS COPIES TO: Bjorn Dixon MD [address] [place], [place] [address] Chanell Harry MD [address] [id number] PROCEDURES: GROSS (05/05/19-1339) TISSUES: NO TISSUE - OLD MESH CLINICAL HISTORY COLLECTION DATE: 05/03/19 RECURRENT INCISIONAL HERNIA FINAL DIAGNOSIS Mesh material, removal: DENSE FIBROUS CONNECTIVE TISSUE WITH POLARIZABLE FORE IGN MATERIAL AND PATCHY MILD CHRONIC INFLAMMATION SURGICAL MESH MATERIAL (GROSS IDENTIFICATION) NEGATIVE FOR MALIGNANCY RRB/lani D 27548 MACROSCOPIC The specimen is received in formalin, lab eled with the patient's name, and identified as "old mesh". It consists of colon rd mesh material with some blue suture material within it. The specimen measu res 3.2 x 2.2 x 1.3 cm. On cut section the specimen is gritty and appears to have some yellow silva tissue elements. A sample is submitted for microscopic e xamination in a single CONTINUED ON NEXT PAGE RUN DATE: 05/05/19 [facility] Lab PAGE 2 RUN TIME: 1720 Specimen In quiry RUN USER: INTERFACE SPEC #: [id number] PATIENT: ERIC JENKINS REENA #[id number] (Continued) MACROSCOPI C (Continued) cassette. GROSS PERFORMED AT [facility] [address] [place] [place] [address] [phone] MICROSCOPIC All of the stains, incl uding any controls performed, stain appropriately. MICROSCOPIC PERFORMED AT [facility] [address] [id number] [phone] PERFORMING SITE Diagnosis per formed at: [facility] [place] [address] [place] [address] [phone] Signed SIGNATURE ON FILE Eryn Gandhi MD 05/05/19 171 END OF REPORT [id number] 12:14:00* Test Item Value Reference Range Comments GLUBED (test code = GLUBED) 134 mg/dL 74-106 Perf ormed by certified database operator at [facility] - XR CHEST 1 [id number] 10:59:00 FAX: Clay Newell MD [phone] [place]: St: ADM FAX: Chanell Antunez MD [phone] Name: ALICERODRÍGUEZ [facility] : 1955 Age/S: 63/F [address] [facility] Unit #: [id number] Loc: [id number] [place] [address] Phys: Bjorn Dixon MD Acct: [id number] Dis Date: Status: ADM IN PHONE #: [phone] Exam Date: 05/05/2019 1035 FAX #: [phone] Reason: NEW ONSET SHORTNESS OF BREATH EXAMS: CPT CODE: [id number] XR CHEST 1 V 68828 HISTORY: New onset of shortness of breath. COMPARISON: May 03, 2019. Location: [facility]. NG tube has been removed. Patchy left basal infiltrate is new with small effusion. Dependent changes on the right. Cardiomegaly. IMPRESSION: Patchy new left basal infiltrate with small effusion. at 1057 Reported and signed by: Kody Polo M.D. CC: Clay Newell MD; Chanell Harry Technologist: Kailyn Izquierdo RT(R) Trnscrd Date/Time/By: 05/05/2019 (9526) : By: [email or web address] Orig Print D/T: S: 05/05/2019 (7562) PAGE 1 Signed Report CBC W/MANUAL DIFF 2019-05-05 06:52:00* Test Item Value Reference Range Comments WHITE BLOOD CELL (test code = WBC) 16.4 K/mm3 4.5-12.5 RED BLOOD CELL (test code = RBC) 4.08 mill/mm3 3.7-5.2 HEMOGLOBIN (test code = HGB) 9.5 gram/dL 11.5-15.5 HEMATOCRIT (test code = HCT) 35.1 % 36.0-46.0 MEAN CELL VOLUME (test code = MCV) 86.0 fL 80-98 MEAN CELL HGB (test code = MCH) 23.3 picogram 27.0-33.0 MEAN CELL HGB CONCETRATION (test code = MCHC) 27.1 gram/dL 33 .0-36.0 RED CELL DISTRIBUTION WIDTH (test code = RDW) 17.0 % 11 .6-16.2 RED CELL DISTRIBUTION WIDTH SD (test code = RDW-SD) 53.3 fL 37.0-51.0 PLATELET COUNT (test code = PLT) 365 K/mm3 150-450 MEAN PLATELET VOLUME (test code = MPV) 10.8 fL 6.7-11.0 IMMATURE GRANULOCYTE % (test code = IG%) 1.9 % 0.0-5.0 NUCLEATED RBC % (test code = NRBC%) 0.1 % 0-0 NEUTROPHIL # (test code = NT#) 12.23 K/mm3 1.8-7.7 IMMATURE GRANULOCYTE # (test code = IG#) 0.31 x10 3/uL 0-0.03 LYMPHOCYTE # (test code = LY#) 1.49 K/mm3 1.0-5.0 MONOCYTE # (test code = MO#) 2.30 K/mm3 0-0.8 EOSINOPHIL # (test code = EO#) 0.05 K/mm3 0.0-0.5 BASOPHIL # (test code = BA#) 0.05 K/mm3 0.0-0.2 NUCLEATED RBC # (test code = NRBC#) 0.02 K/mm3 0.0-0.1 MANUAL DIFF REQUIRED (test code = MDIFF) YES STAIN ACCEPTABILITY (test code = STN ACCEPTABLE) STAIN ACCEPTABL E TOTAL CELLS COUNTED (test code = TCC) 115 #CELLS SEGMENTED NEUTROPHILS (test code = SEG) 70.4 % 39-69 BAND NEUTROPHIL (test code = BAND) 0 % 0-10 LYMPHOCYTE (test code = LYMPH) 17.4 % 25-55 REACTIVE LYMPH (test code = RELYMPH) 0 % MONOCYTE (test code = MON) 12.2 % 0-10 EOSINOPHIL (test code = EOS) 0 % 0.0-5.0 BASOPHIL (test code = BASO) 0 % 0-1.0 METAMYELOCYTE (test code = META) 0 % 0-0 MYELOCYTE (test code = MYELO) 0 % 0.0-0.0 PROMYELOCYTE (test code = PROM) 0 % 0-0 HYPOCHROMIA (test code = HYPO) 2+ POIKILOCYTOSIS (test code = POIK) 2+ ANISOCYTOSIS (test code = ANISO) 1+ MICROCYTOSIS (test code = MICR) 1+ CRENATED CELLS (test code = CREN) 1+ PLATELET ESTIMATE (test code = PLTEST) ADEQUATE PLATELET MORPHOLOGY (test code = PLTMORPH) NORMAL IMMATURE FORMS (test code = IMMAT) 0 % 0-0 BASIC METABOLIC [id number] 06:51:00* Test Item Value Reference Range Comments SODIUM (test code = NA) 141 mmol/L 136-145 POTASSIUM (test code = K) 5.4 mmol/L 3.5-5.1 CHLORIDE (test code = CL) 112.0 mmol/L 98-107 CARBON DIOXIDE (test code = CO2) 19.0 mmol/L 21-32 ANION GAP (test code = GAP) 15.4 10-20 GLUCOSE (test code = GLU) 157 mg/dL 74-106 BLOOD UREA NITROGEN (test code = BUN) 47 mg/dL 7-18 RESULT VERIFIED BY REPEAT ANALYSIS GLOMERULAR FILTRATION RATE (test code = GFR) 18 mL/min >=6 0 Estimated GFR by using Modified MDRD formula.Chronic kidney disease is defined as either kidney damageor GFR <60 mL/min/1.73 m2 for >3 months. CREATININE (test code = CREAT) 2.70 mg/dL 0.55-1.02 * *Note change in reference range due to change in reagent. BUN/CREATININE RATIO (test code = BUN/CREA) 17.4 10-2 0 CALCIUM (test code = CA) 8.2 mg/dL 8.5-10.1 BASIC METABOLIC [id number] 06:25:00* Test Item Value Reference Range Comments SODIUM (test code = NA) 141 mmol/L 136-145 POTASSIUM (test code = K) 5.4 mmol/L 3.5-5.1 CHLORIDE (test code = CL) 112.0 mmol/L 98-107 CARBON DIOXIDE (test code = CO2) mmol/L 21-32 ANION GAP (test code = GAP) 10-20 GLUCOSE (test code = GLU) mg/dL 74-106 BLOOD UREA NITROGEN (test code = BUN) mg/dL 7-18 GLOMERULAR FILTRATION RATE (test code = GFR) mL/min >=6 0 CREATININE (test code = CREAT) mg/dL 0.55-1.02 BUN/CREATININE RATIO (test code = BUN/CREA) 10-2 0 CALCIUM (test code = CA) mg/dL 8.5-10.1 CBC W/MANUAL [id number] 06:04:00* Test Item Value Reference Range Comments WHITE BLOOD CELL (test code = WBC) 16.4 K/mm3 4.5-12.5 RED BLOOD CELL (test code = RBC) 4.08 mill/mm3 3.7-5.2 HEMOGLOBIN (test code = HGB) 9.5 gram/dL 11.5-15.5 HEMATOCRIT (test code = HCT) 35.1 % 36.0-46.0 MEAN CELL VOLUME (test code = MCV) 86.0 fL 80-98 MEAN CELL HGB (test code = MCH) 23.3 picogram 27.0-33.0 MEAN CELL HGB CONCETRATION (test code = MCHC) 27.1 gram/dL 33 .0-36.0 RED CELL DISTRIBUTION WIDTH (test code = RDW) 17.0 % 11 .6-16.2 RED CELL DISTRIBUTION WIDTH SD (test code = RDW-SD) 53.3 fL 37.0-51.0 PLATELET COUNT (test code = PLT) 365 K/mm3 150-450 MEAN PLATELET VOLUME (test code = MPV) 10.8 fL 6.7-11.0 IMMATURE GRANULOCYTE % (test code = IG%) 1.9 % 0.0-5.0 NUCLEATED RBC % (test code = NRBC%) 0.1 % 0-0 NEUTROPHIL # (test code = NT#) 12.23 K/mm3 1.8-7.7 IMMATURE GRANULOCYTE # (test code = IG#) 0.31 x10 3/uL 0-0.03 LYMPHOCYTE # (test code = LY#) 1.49 K/mm3 1.0-5.0 MONOCYTE # (test code = MO#) 2.30 K/mm3 0-0.8 EOSINOPHIL # (test code = EO#) 0.05 K/mm3 0.0-0.5 BASOPHIL # (test code = BA#) 0.05 K/mm3 0.0-0.2 NUCLEATED RBC # (test code = NRBC#) 0.02 K/mm3 0.0-0.1 MANUAL DIFF REQUIRED (test code = MDIFF) YES STAIN ACCEPTABILITY (test code = STN ACCEPTABLE) TOTAL CELLS COUNTED (test code = TCC) #CELLS SEGMENTED NEUTROPHILS (test code = SEG) % 39-69 LYMPHOCYTE (test code = LYMPH) % 25-55 MONOCYTE (test code = MON) % 0-10 MORPHOLOGY COMMENT (test code = MOC) PLATELET ESTIMATE (test code = PLTEST) PLATELET MORPHOLOGY (test code = PLTMORPH) CBC W/MANUAL [id number] 07:18:00* Test Item Value Reference Range Comments WHITE BLOOD CELL (test code = WBC) 11.9 K/mm3 4.5-12.5 RED BLOOD CELL (test code = RBC) 4.52 mill/mm3 3.7-5.2 HEMOGLOBIN (test code = HGB) 10.5 gram/dL 11.5-15.5 HEMATOCRIT (test code = HCT) 37.5 % 36.0-46.0 MEAN CELL VOLUME (test code = MCV) 83.0 fL 80-98 MEAN CELL HGB (test code = MCH) 23.2 picogram 27.0-33.0 MEAN CELL HGB CONCETRATION (test code = MCHC) 28.0 gram/dL 33 .0-36.0 RED CELL DISTRIBUTION WIDTH (test code = RDW) 17.6 % 11 .6-16.2 RED CELL DISTRIBUTION WIDTH SD (test code = RDW-SD) 52.6 fL 37.0-51.0 PLATELET COUNT (test code = PLT) 384 K/mm3 150-450 MEAN PLATELET VOLUME (test code = MPV) 11.1 fL 6.7-11.0 IMMATURE GRANULOCYTE % (test code = IG%) 0.5 % 0.0-5.0 NUCLEATED RBC % (test code = NRBC%) 0.0 % 0-0 NEUTROPHIL # (test code = NT#) 8.95 K/mm3 1.8-7.7 IMMATURE GRANULOCYTE # (test code = IG#) 0.06 x10 3/uL 0-0.03 LYMPHOCYTE # (test code = LY#) 0.99 K/mm3 1.0-5.0 MONOCYTE # (test code = MO#) 1.90 K/mm3 0-0.8 EOSINOPHIL # (test code = EO#) 0.00 K/mm3 0.0-0.5 BASOPHIL # (test code = BA#) 0.04 K/mm3 0.0-0.2 NUCLEATED RBC # (test code = NRBC#) 0.00 K/mm3 0.0-0.1 MANUAL DIFF REQUIRED (test code = MDIFF) YES STAIN ACCEPTABILITY (test code = STN ACCEPTABLE) STAIN ACCEPTABL E TOTAL CELLS COUNTED (test code = TCC) 115 #CELLS SEGMENTED NEUTROPHILS (test code = SEG) 67.8 % 39-69 BAND NEUTROPHIL (test code = BAND) 10.4 % 0-10 LYMPHOCYTE (test code = LYMPH) 7.0 % 25-55 REACTIVE LYMPH (test code = RELYMPH) 0 % MONOCYTE (test code = MON) 14.8 % 0-10 EOSINOPHIL (test code = EOS) 0 % 0.0-5.0 BASOPHIL (test code = BASO) 0 % 0-1.0 METAMYELOCYTE (test code = META) 0 % 0-0 MYELOCYTE (test code = MYELO) 0 % 0.0-0.0 PROMYELOCYTE (test code = PROM) 0 % 0-0 POLYCHROMASIA (test code = POLC) 1+ HYPOCHROMIA (test code = HYPO) 1+ POIKILOCYTOSIS (test code = POIK) 1+ ANISOCYTOSIS (test code = ANISO) 1+ PLATELET ESTIMATE (test code = PLTEST) ADEQUATE PLATELET MORPHOLOGY (test code = PLTMORPH) NORMAL IMMATURE FORMS (test code = IMMAT) 0 % 0-0 BASIC METABOLIC [id number] 07:11:00* Test Item Value Reference Range Comments SODIUM (test code = NA) 141 mmol/L 136-145 POTASSIUM (test code = K) 5.6 mmol/L 3.5-5.1 CHLORIDE (test code = CL) 113.0 mmol/L 98-107 CARBON DIOXIDE (test code = CO2) 20.0 mmol/L 21-32 ANION GAP (test code = GAP) 13.6 10-20 GLUCOSE (test code = GLU) 160 mg/dL 74-106 BLOOD UREA NITROGEN (test code = BUN) 38 mg/dL 7-18 GLOMERULAR FILTRATION RATE (test code = GFR) 25 mL/min >=6 0 Estimated GFR by using Modified MDRD formula.Chronic kidney disease is defined as either kidney damageor GFR <60 mL/min/1.73 m2 for >3 months. CREATININE (test code = CREAT) 2.00 mg/dL 0.55-1.02 * *Note change in reference range due to change in reagent. BUN/CREATININE RATIO (test code = BUN/CREA) 19.0 10-2 0 CALCIUM (test code = CA) 8.0 mg/dL 8.5-10.1 BASIC METABOLIC [id number] 07:08:00* Test Item Value Reference Range Comments SODIUM (test code = NA) 141 mmol/L 136-145 POTASSIUM (test code = K) 5.6 mmol/L 3.5-5.1 CHLORIDE (test code = CL) 113.0 mmol/L 98-107 CARBON DIOXIDE (test code = CO2) mmol/L 21-32 ANION GAP (test code = GAP) 10-20 GLUCOSE (test code = GLU) mg/dL 74-106 BLOOD UREA NITROGEN (test code = BUN) mg/dL 7-18 GLOMERULAR FILTRATION RATE (test code = GFR) mL/min >=6 0 CREATININE (test code = CREAT) mg/dL 0.55-1.02 BUN/CREATININE RATIO (test code = BUN/CREA) 10-2 0 CALCIUM (test code = CA) 8.0 mg/dL 8.5-10.1 CBC W/MANUAL [id number] 06:55:00* Test Item Value Reference Range Comments WHITE BLOOD CELL (test code = WBC) 11.9 K/mm3 4.5-12.5 RED BLOOD CELL (test code = RBC) 4.52 mill/mm3 3.7-5.2 HEMOGLOBIN (test code = HGB) 10.5 gram/dL 11.5-15.5 HEMATOCRIT (test code = HCT) 37.5 % 36.0-46.0 MEAN CELL VOLUME (test code = MCV) 83.0 fL 80-98 MEAN CELL HGB (test code = MCH) 23.2 picogram 27.0-33.0 MEAN CELL HGB CONCETRATION (test code = MCHC) 28.0 gram/dL 33 .0-36.0 RED CELL DISTRIBUTION WIDTH (test code = RDW) 17.6 % 11 .6-16.2 RED CELL DISTRIBUTION WIDTH SD (test code = RDW-SD) 52.6 fL 37.0-51.0 PLATELET COUNT (test code = PLT) 384 K/mm3 150-450 MEAN PLATELET VOLUME (test code = MPV) 11.1 fL 6.7-11.0 IMMATURE GRANULOCYTE % (test code = IG%) 0.5 % 0.0-5.0 NUCLEATED RBC % (test code = NRBC%) 0.0 % 0-0 NEUTROPHIL # (test code = NT#) 8.95 K/mm3 1.8-7.7 IMMATURE GRANULOCYTE # (test code = IG#) 0.06 x10 3/uL 0-0.03 LYMPHOCYTE # (test code = LY#) 0.99 K/mm3 1.0-5.0 MONOCYTE # (test code = MO#) 1.90 K/mm3 0-0.8 EOSINOPHIL # (test code = EO#) 0.00 K/mm3 0.0-0.5 BASOPHIL # (test code = BA#) 0.04 K/mm3 0.0-0.2 NUCLEATED RBC # (test code = NRBC#) 0.00 K/mm3 0.0-0.1 MANUAL DIFF REQUIRED (test code = MDIFF) YES STAIN ACCEPTABILITY (test code = STN ACCEPTABLE) TOTAL CELLS COUNTED (test code = TCC) #CELLS SEGMENTED NEUTROPHILS (test code = SEG) % 39-69 LYMPHOCYTE (test code = LYMPH) % 25-55 MONOCYTE (test code = MON) % 0-10 MORPHOLOGY COMMENT (test code = MOC) PLATELET ESTIMATE (test code = PLTEST) PLATELET MORPHOLOGY (test code = PLTMORPH) CBC W/MANUAL [id number] 06:51:00* Test Item Value Reference Range Comments WHITE BLOOD CELL (test code = WBC) 11.9 K/mm3 4.5-12.5 RED BLOOD CELL (test code = RBC) 4.52 mill/mm3 3.7-5.2 HEMOGLOBIN (test code = HGB) 10.5 gram/dL 11.5-15.5 HEMATOCRIT (test code = HCT) 37.5 % 36.0-46.0 MEAN CELL VOLUME (test code = MCV) 83.0 fL 80-98 MEAN CELL HGB (test code = MCH) 23.2 picogram 27.0-33.0 MEAN CELL HGB CONCETRATION (test code = MCHC) 28.0 gram/dL 33 .0-36.0 RED CELL DISTRIBUTION WIDTH (test code = RDW) 17.6 % 11 .6-16.2 RED CELL DISTRIBUTION WIDTH SD (test code = RDW-SD) 52.6 fL 37.0-51.0 PLATELET COUNT (test code = PLT) 384 K/mm3 150-450 MEAN PLATELET VOLUME (test code = MPV) 11.1 fL 6.7-11.0 IMMATURE GRANULOCYTE % (test code = IG%) 0.5 % 0.0-5.0 NUCLEATED RBC % (test code = NRBC%) 0.0 % 0-0 NEUTROPHIL # (test code = NT#) 8.95 K/mm3 1.8-7.7 IMMATURE GRANULOCYTE # (test code = IG#) 0.06 x10 3/uL 0-0.03 LYMPHOCYTE # (test code = LY#) 0.99 K/mm3 1.0-5.0 MONOCYTE # (test code = MO#) 1.90 K/mm3 0-0.8 EOSINOPHIL # (test code = EO#) 0.00 K/mm3 0.0-0.5 BASOPHIL # (test code = BA#) 0.04 K/mm3 0.0-0.2 NUCLEATED RBC # (test code = NRBC#) 0.00 K/mm3 0.0-0.1 MANUAL DIFF REQUIRED (test code = MDIFF) YES STAIN ACCEPTABILITY (test code = STN ACCEPTABLE) TOTAL CELLS COUNTED (test code = TCC) #CELLS SEGMENTED NEUTROPHILS (test code = SEG) % 39-69 LYMPHOCYTE (test code = LYMPH) % 25-55 MONOCYTE (test code = MON) % 0-10 EOSINOPHIL (test code = EOS) % 0.0-5.0 MORPHOLOGY COMMENT (test code = MOC) PLATELET ESTIMATE (test code = PLTEST) PLATELET MORPHOLOGY (test code = PLTMORPH) CBC W/MANUAL [id number] 06:49:00* Test Item Value Reference Range Comments WHITE BLOOD CELL (test code = WBC) K/mm3 4.5-12.5 RED BLOOD CELL (test code = RBC) mill/mm3 3.7-5.2 HEMOGLOBIN (test code = HGB) gram/dL 11.5-15.5 HEMATOCRIT (test code = HCT) 37.5 % 36.0-46.0 MEAN CELL VOLUME (test code = MCV) fL 80-98 MEAN CELL HGB (test code = MCH) picogram 27.0-33.0 MEAN CELL HGB CONCETRATION (test code = MCHC) gram/dL 33 .0-36.0 RED CELL DISTRIBUTION WIDTH (test code = RDW) % 11 .6-16.2 RED CELL DISTRIBUTION WIDTH SD (test code = RDW-SD) fL 37.0-51.0 PLATELET COUNT (test code = PLT) K/mm3 150-450 MEAN PLATELET VOLUME (test code = MPV) fL 6.7-11.0 NEUTROPHIL % (test code = NT%) % 39.0-69.0 IMMATURE GRANULOCYTE % (test code = IG%) % 0.0-5.0 LYMPHOCYTE % (test code = LY%) % 25.0-55.0 MONOCYTE % (test code = MO%) % 0.0-10.0 EOSINOPHIL % (test code = EO%) % 0.0-5.0 BASOPHIL % (test code = BA%) % 0.0-1.0 NEUTROPHIL # (test code = NT#) K/mm3 1.8-7.7 LYMPHOCYTE # (test code = LY#) K/mm3 1.0-5.0 MONOCYTE # (test code = MO#) K/mm3 0-0.8 EOSINOPHIL # (test code = EO#) K/mm3 0.0-0.5 BASOPHIL # (test code = BA#) K/mm3 0.0-0.2 STAIN ACCEPTABILITY (test code = STN ACCEPTABLE) TOTAL CELLS COUNTED (test code = TCC) #CELLS SEGMENTED NEUTROPHILS (test code = SEG) % 39-69 LYMPHOCYTE (test code = LYMPH) % 25-55 MONOCYTE (test code = MON) % 0-10 EOSINOPHIL (test code = EOS) % 0.0-5.0 MORPHOLOGY COMMENT (test code = MOC) PLATELET ESTIMATE (test code = PLTEST) PLATELET MORPHOLOGY (test code = PLTMORPH) - CT ABD PELVIS W/O [id number] 14:10:00 Name: RODRÍGUEZ JENKINS [facility] : 1955 Age/S: 63 / F [address] [facility] Unit #: [id number] Loc: [place] [address] Phys: Espinoza Hassan DO Acct: [id number] Dis Date: Status: ADM IN PHONE #: [phone] Exam Date: 05/03/2019813 FAX #: [phone] Reason: pain/vomiting/hernia/evaluate for bowel obstruc Report Has Been Amended EXAMS: CPT CODE: [id number] CT ABD PELVIS W/O CONT [id number] Addendum - 05/03/2019 SIGNED 05/03/2019 ADDENDUM: [id number] CT/CTABPLWO ADDENDUM: Within the large [place] ventral hernia there is additional herniation through the hernia sac of the small bowel loops which may be incarcerated on the right side inferiorly within the pelvis. These findings were discussed with Dr. Dixon. at 1410 Reported and signed by: Kody Polo M.D. Transcribed: 05/03/2019 (1410) [email or web address] Report HISTORY: Pain and vomiting. COMPARISON: None available. Location: [facility]. CT of abdomen and pelvis: Stone protocol. Automated exposure control. CT ABDOMEN: The lung bases are clear. The liver is unremarkable on this noncontrast study. No discrete mass. Patient is post cholecystectomy. The liver is measuring 20.3 cm in length. The spleen is not enl arged. The stomach. Postop changes. It is collapsed and limited in evaluat ion. Noncontrast pancreas and adrenals are normal. K idneys are free from hydroureteronephrosis. No calyceal stones are noted e ither. No pathologic adenopathy. Unremarkable unopacified abdomina l and PAGE 1 Signed Report (CONTIN UED) Name: RODRÍGUEZ JENKINS [facility] : 1955 Age/S: 63 / F [address] [facility] Unit #: [id number] Loc: [place] [address] Phys: Espinoza Hassan DO Acct: [id number] Dis Date: Status: ADM IN PHONE #: [phone] Exam Date: 05/03/2019813 FAX #: Reason: pain/vomiting/hernia/evaluate for bowel obstruc Report Has Been Amended EXAMS: CPT CODE: [id number] CT ABD PELVIS W/O CONT 89988 <Continued> pelvic vasculature with mild atherosclerotic change. No bowel obstruction is noted. Massive ventral hernia with marked diastasis of the rectus muscle with protrusion of intra-abdominal contents through the abdominal wall into the hernia sac containing large amount of mesenteric fat and small and large bowel loops. No evidence for incarceration. CT PELVIS: Pelvic bowel loops are unobstructed as well. Appendix is not visible with certainty but no inflammatory changes. Unremarkable incompletely distended urinary bladder. Patient is post hysterectomy. No free fluid or free air. Study is limited due to artifact from patient's massive body habitus. Extensive beam hardening artifact limits evaluation. No free fluid or free air. No pelvic pathologic adenopathy. Subcutaneous tissues and the musculature are otherwise unremarkable. No lytic or blastic lesions are noted within the bony skeleton. IMPRESSION: Massive ventral hernia containing large amount of mesenteric fat and small and large bowel loops through the anterior abdominal wall without incarceration or obstruction. No free fluid or free air. at 0837 Reported and signed by: Kody Polo M.D. CC: Espinoza Hassan DO Technologist: Nicko Ruiz RT(R),(MR),(CT) CTDI: DLP: Trnscb Date/Time: 05/03 (0837) [email or web address] Orig Print D/T: S: 05/03/2019 (084 0) PAGE 2 Signed Report - XR CHEST 1 [id number] 12:57:00 FAX: Lupe Martin MD [phone] [place]: St: [facility] FAX: Chanell Antunez MD [phone] Name: RODRÍGUEZ JENKINS [facility] : 1955 Age/S: 63/F [address] [facility] Unit #: [id number] Loc: V.[address] [place] [address] Phys: Lupe Carroll MD Acct: [id number] Dis Date: Status: ADM IN PHONE #: [phone] Exam Date: 05/03/2019 1232 FAX #: [phone] Reason: CONFIRMATION OF NG TUBE PLACEMENT EXAMS: CPT CODE: [id number] XR CHEST 1 V 69040 HISTORY: Confirm NG tube placement. Location: [facility]. Single view chest: NG tube side port at the GE junction which should be advanced 15 cm for better positioning. No acute infiltrates, effusion or congestion is noted. Mild cardiomegaly. IMPRESSION: No acute infiltrates, effusion or congestion. NG tube side port at the GE junction which should be advan sonam 15 cm for better positioning. at 1257 Reported and signed by: Lauryn Polo M.D. CC: Lupe Carroll MD; Chanell Harry Technologist: ISIAH JACOBSON JR Trnscrd Date/Time/By: 05/03/2019 (1257) : By: [email or web address] Orig Print D/T: S: 05/03/2019 (1300) PAGE 1 Signed Report - CT ABD PELVIS W/O CONT 2019-05-03 08:37:00 Name: RODRÍGUEZ JENKINS [facility] : 1955 Age/S: 63 / F [address] [facility] Unit #: [id number] Loc: [place] [address] Phys: Espinoza Hassan DO Acct: [id number] Dis Date: Status: ADM IN PHONE #: [phone] Exam Date: 05/03/2019813 FAX #: [phone] Reason: pain/vomiting/hernia/evaluate for bowel obstruc EXAMS: CPT CODE: [id number] CT ABD PELVIS W/O CONT 41739 HISTORY: Pain and vomiting. COMPARISON: None available. Location: [facility]. CT of abdomen and pelvis: Stone protocol. Automated exposure control. CT ABDOMEN: The lung bases are clear. The liver is unremarkable on this noncontrast study. No discrete mass. Patient is post cholecystectomy. The liver is measuring 20.3 cm in length. The spleen is not enlarged. The stomach. Postop changes. It is collapsed and limited in evaluation. Noncontrast pancreas and adrenals are normal. Kidneys are free from hydroureteronephrosis. No calyceal stones are noted either. No pathologic adenopathy. Unremarkable unopacified abdominal and pelvic vasculature with mild atherosclerotic change. No bowel obstruction is noted. Massive ventral hernia with marked diastasis of the rectus muscle with protrusion of intra-abdominal contents through the abdominal wall into the hernia sac containing large amount of mesenteric fat and small and large bowel loops. No evidence for incarceration. CT PELVIS: Pelvic bowel loops are unobstructed as well. Appendix is not visible with certainty but no inflammatory changes. Unremarkable incompletely distended urinary bladder. Patient is post hysterectomy. No free fluid or free air. Study is limited due to artifact from patient's massive body habitus. Extensive beam hardening artifact limits evaluation. No free fluid or free air. No pelvic pathologic adenopathy. Subcutaneous tissues and the musculature are otherwise unremarkable. PAGE 1 Signed Report (CONTINUED) Name: RODRÍGUEZ JENKINS [facility] : 1955 Age/S: 63 / F [address] [facility] Unit #: [id number] [place] [address] Phys: Espinoza Hassan DO Acct: [id number] Dis Date: Status: ADM IN PHONE #: [phone] Exam Date: 05/03/2019813 FAX #: [phone] Reason: pain/vomiting/hernia/evaluate for bowel obstruc EXAMS: CPT CODE: [id number] CT ABD PELVIS W/O CONT 55265 < Continued> No lytic or blastic lesions are noted within the bony skeleton. IMPRESSION: Massive ventral hernia containing large amount of mesenteric fat and small and large bowel loops through the anterior abdominal wall without incarceration or obstruction. No free fluid or free air. at 0837 Reported and signed by: Kody Polo M.D. CC: Espinoza Hassan DO Technologist:Nicko Ruiz RT(R),(MR),(CT) CTDI: DLP: Trnscb Date/Time: 05/03/2019 (0837) [email or web address] Orig Print D/T: S: 05/03/2019 (0840) PAGE 2 Signed Report BASIC METABOLIC PANEL 2019-05-03 02:43:00* Test Item Value Reference Range Comments SODIUM (test code = NA) 141 mmol/L 136-145 POTASSIUM (test code = K) 4.7 mmol/L 3.5-5.1 CHLORIDE (test code = CL) 109.0 mmol/L 98-107 CARBON DIOXIDE (test code = CO2) 23.0 mmol/L 21-32 ANION GAP (test code = GAP) 13.7 10-20 GLUCOSE (test code = GLU) 147 mg/dL 74-106 BLOOD UREA NITROGEN (test code = BUN) 32 mg/dL 7-18 GLOMERULAR FILTRATION RATE (test code = GFR) 50 mL/min >=6 0 Estimated GFR by using Modified MDRD formula.Chronic kidney disease is defined as either kidney damageor GFR <60 mL/min/1.73 m2 for >3 months. CREATININE (test code = CREAT) 1.10 mg/dL 0.55-1.02 * *Note change in reference range due to change in reagent. BUN/CREATININE RATIO (test code = BUN/CREA) 29.1 10-2 0 CALCIUM (test code = CA) 8.9 mg/dL 8.5-10.1 HEPATIC FUNCTION [id number] 02:43:00* Test Item Value Reference Range Comments TOTAL PROTEIN (test code = PROT) 7.5 gram/dL 6.4-8.2 ALBUMIN (test code = ALB) 3.3 g/dL 3.4-5.0 GLOBULIN (test code = GLOB) 4.2 gram/dL 2.7-4.2 ALBUMIN/GLOBULIN RATIO (test code = A/G) 0.8 0.75-1. 50 BILIRUBIN TOTAL (test code = BILT) 0.40 mg/dL 0.0-1.0 BILIRUBIN DIRECT (test code = BILD) 0.06 mg/dL 0.0-0.20 SGOT/AST (test code = AST) 14 IUnit/L 15-37 SGPT/ALT (test code = ALT) 26 IUnit/L 12-78 ALKALINE PHOSPHATASE TOTAL (test code = ALKP) 111 IUnit/L 45 -117 Note change in reference range due to change in reagent. [id number] 02:43:00* Test Item Value Reference Range Comments LIPASE (test code = LIP) 75 U/L 73.0-393.0 [id number] 02:43:00* Test Item Value Reference Range Comments TROPONIN-I (test code = TROPI) <0.015 ng/mL 0-0.045 BASIC METABOLIC [id number] 02:33:00* Test Item Value Reference Range Comments SODIUM (test code = NA) 141 mmol/L 136-145 POTASSIUM (test code = K) 4.7 mmol/L 3.5-5.1 CHLORIDE (test code = CL) 109.0 mmol/L 98-107 CARBON DIOXIDE (test code = CO2) mmol/L 21-32 ANION GAP (test code = GAP) 10-20 GLUCOSE (test code = GLU) mg/dL 74-106 BLOOD UREA NITROGEN (test code = BUN) mg/dL 7-18 GLOMERULAR FILTRATION RATE (test code = GFR) mL/min >=6 0 CREATININE (test code = CREAT) mg/dL 0.55-1.02 BUN/CREATININE RATIO (test code = BUN/CREA) 10-2 0 CALCIUM (test code = CA) mg/dL 8.5-10.1 HEPATIC FUNCTION [id number] 02:33:00* Test Item Value Reference Range Comments TOTAL PROTEIN (test code = PROT) gram/dL 6.4-8.2 ALBUMIN (test code = ALB) g/dL 3.4-5.0 GLOBULIN (test code = GLOB) gram/dL 2.7-4.2 ALBUMIN/GLOBULIN RATIO (test code = A/G) 0.75-1. 50 BILIRUBIN TOTAL (test code = BILT) mg/dL 0.0-1.0 BILIRUBIN DIRECT (test code = BILD) mg/dL 0.0-0.20 SGOT/AST (test code = AST) IUnit/L 15-37 SGPT/ALT (test code = ALT) IUnit/L 12-78 ALKALINE PHOSPHATASE TOTAL (test code = ALKP) IUnit/L 45 -117 [id number] 02:33:00* Test Item Value Reference Range Comments LIPASE (test code = LIP) U/L 73.0-393.0 [id number] 02:33:00* Test Item Value Reference Range Comments TROPONIN-I (test code = TROPI) ng/mL 0-0.045 CBC W/O [id number] 02:18:00* Test Item Value Reference Range Comments WHITE BLOOD CELL (test code = WBC) 10.6 K/mm3 4.5-12.5 RED BLOOD CELL (test code = RBC) 4.56 mill/mm3 3.7-5.2 HEMOGLOBIN (test code = HGB) 10.6 gram/dL 11.5-15.5 HEMATOCRIT (test code = HCT) 36.3 % 36.0-46.0 MEAN CELL VOLUME (test code = MCV) 79.6 fL 80-98 MEAN CELL HGB (test code = MCH) 23.2 picogram 27.0-33.0 MEAN CELL HGB CONCETRATION (test code = MCHC) 29.2 gram/dL 33 .0-36.0 RED CELL DISTRIBUTION WIDTH (test code = RDW) 17.2 % 11 .6-16.2 PLATELET COUNT (test code = PLT) 372 K/mm3 150-450 MEAN PLATELET VOLUME (test code = MPV) 10.4 fL 6.7-11.0 CBC W/O [id number] 02:10:00* Test Item Value Reference Range Comments WHITE BLOOD CELL (test code = WBC) K/mm3 4.5-12.5 RED BLOOD CELL (test code = RBC) mill/mm3 3.7-5.2 HEMOGLOBIN (test code = HGB) gram/dL 11.5-15.5 HEMATOCRIT (test code = HCT) 36.3 % 36.0-46.0 MEAN CELL VOLUME (test code = MCV) fL 80-98 MEAN CELL HGB (test code = MCH) picogram 27.0-33.0 MEAN CELL HGB CONCETRATION (test code = MCHC) gram/dL 33 .0-36.0 RED CELL DISTRIBUTION WIDTH (test code = RDW) % 11 .6-16.2 PLATELET COUNT (test code = PLT) K/mm3 150-450 MEAN PLATELET VOLUME (test code = MPV) fL 6.7-11.0 - XR ABDOMEN AP 1 [id number] 01:46:00 FAX: Chanell Antunez MD [phone] [place]: St: [facility] FAX: Espinoza Hassan DO Name: RODRÍGUEZ JENKINS [facility] : 1955 Age/S: 63/F [address] [facility] Unit #: [id number] Loc: [place] [address] Phys: Espinoza Hassan DO Acct: [id number] Dis Date: Status: REG ER PHONE #: [phone] Exam Date: 05/03/2019 0139 FAX #: [phone] Reason: evaluate for SBO EXAMS: CPT CODE: [id number] XR ABDOMEN AP 1 V 00555 DICTATION LOCATION: H48 HISTORY: Female, 63 years of age with abdominal pain, vomiting, small bowel obstruction EXAM: ABDOMEN, ONE VIEW COMPARISON: None FIN DINGS: AP view is provided. Surgical clips are seen in the left upper quad rant and in the gallbladder fossa. Multiple dilated loops of small bowel are present measuring up to 6.5 cm diameter. No significant colonic disten tion. No unusual calcification. No abnormal mass. No acute bony abnormal ities. IMPRESSION: Small bowel distention with nondistended c olon suggestive of small bowel obstruction. Electronically S igned by Cris Granger MD on 05/03/2019 at 0146 Reported and signed by: Cris Granger MD CC: Chanell Harry; Espinoza Hassan DO Technologist: KULDEEP PORTER Trnscrd Date/Time/By: 05/03/2019 (0146) : By: Navid Orig Print D/T: S: 05/03/2019 (6512) PAGE 1 Signed Report
[2019-07-26] MEDS ORDERED: ONDANSETRON HCL INJ 2MG/ML 2ML 2 MG/ML VIAL IV STA ×2 (12:42→17:19)
[2019-07-26] MEDS ORDERED: MORPHINE SULFATE INJ 4 MG/ML INJ 1ML IV STA (12:42)
[2019-07-26 13:55] LABS: BASOPHILS % 0.2 % (0.0-1.0); EOSINOPHILS % 0.4 % (0.0-6.0); HEMATOCRIT 33.5 % (34.2-44.1); HEMOGLOBIN 10.1 g/dL (12.0-16.0); LYMPHOCYTES # (AUTO) 1.5 (1.0-3.2); LYMPHOCYTES % 18.7 % (18.0-39.1); MEAN CORPUSCULAR HEMOGLOBIN 24.7 pg (28-32); MEAN CORPUSCULAR HGB CONC 30.1 g/dL (31-35); MEAN CORPUSCULAR VOLUME 81.9 fL (81-99); MONOCYTES # (AUTO) 0.6 (0.2-0.8); MONOCYTES % 7.1 % (4.4-11.3); NEUTROPHILS # (AUTO) 5.9 (2.1-6.9); NEUTROPHILS % 73.1 % (38.7-80.0); PLATELET COUNT 383 x10e3/uL (140-360); RED BLOOD COUNT 4.09 x10e6/uL (3.6-5.1); RED CELL DISTRIBUTION WIDTH 20.3 % (11.7-14.4)
[2019-07-26 14:17] LABS: CREATINE KINASE MB 2.3 ng/mL (0-5.0)
[2019-07-26 14:20] LABS: BILIRUBIN,URINE NEGATIVE (NEGATIVE); CLARITY,URINE SL CLOUDY (CLEAR); COLOR,URINE YELLOW (YELLOW); KETONES,URINE NEGATIVE (NEGATIVE); LEUKOCYTE ESTERASE ,URINE NEGATIVE (NEGATIVE); NITRITE,URINE NEGATIVE (NEGATIVE); PROTEIN,URINE DIPSTICK NEGATIVE (NEGATIVE); URINE UROBILINOGEN 0.2 mg/dL (0.2 - 1)
[2019-07-26 14:24] LABS: ALBUMIN 2.6 g/dL (3.5-5.0); ALBUMIN/GLOBULIN RATIO 0.6 (0.8-2.0); ANION GAP 13.5 mmol/L (8-16); CALCIUM 8.8 mg/dL (8.4-10.2); CREATININE, SERUM 1.09 mg/dL (0.57-1.11); POTASSIUM 3.5 mmol/L (3.5-5.1)
[2019-07-26 14:30] LABS: BACTERIA,URINE MODERATE /HPF; EPITHELIAL CELLS,URINE FEW /LPF; WBC,URINE (MAN) 0-5 /HPF (0-5)
[2019-07-26] MEDS ORDERED: SODIUM CHLORIDE 0.9% 1000ML 1,000 ML IV STA (14:34)
[2019-07-26] MEDS ORDERED: SODIUM CHLORIDE 0.9% 50ML 50 ML ONE (14:39)
[2019-07-26] MEDS ORDERED: IOPAMIDOL 370 MG/ML 200 ML INFUS..BTL INJ ONE (14:39)
[2019-07-26] MEDS ORDERED: KETOROLAC TROMETHAMINE 30 MG/ML VIAL ONE (15:13)
[2019-07-26] MEDS ORDERED: KETOROLAC TROMETHAMINE 30 MG/ML VIAL IV STA (15:14)
[2019-07-26] MEDS ORDERED: SODIUM CHLORIDE 0.9% 1000ML 1,000 ML ONE (15:14)
--- NOTE | 2019-07-26 15:46 | NUR ---
Patient currently recieving CT scan.
--- NOTE | 2019-07-26 16:14 | Diagnostic Imaging Report ---
EXAM: CT Abdomen and Pelvis WITH intravenous contrast INDICATION: Abdominal distention, nausea, vomiting COMPARISON: None. TECHNIQUE: Abdomen and pelvis were scanned utilizing a multidetector helical scanner from the lung base to the pubic symphysis after administration of IV contrast. Coronal and sagittal reformations were obtained. Routine protocol was performed. Scan was performed during portal venous phase. IV CONTRAST: 100mL of Isovue 370 ORAL CONTRAST: Water RADIATION DOSE: Total DLP: 861 mGy*cm Dose modulation, iterative reconstruction, and/or weight based adjustment of the mA/kV was utilized to reduce the radiation dose to as low as reasonably achievable. FINDINGS: LOWER THORAX: Normal. HEPATOBILIARY: Diffuse hepatic steatosis. No focal liver lesion. No biliary ductal dilation. Status post cholecystectomy. SPLEEN: No splenomegaly. PANCREAS: Mild peripancreatic fat stranding adjacent to the pancreatic head and neck. No focal fluid collection. No hypoenhancement of pancreatic parenchyma. No focal mass. ADRENALS: No adrenal nodules. KIDNEYS/URETERS: No hydronephrosis or renal calculi. 2.1 cm exophytic hypodense lesion at the right renal upper pole is indeterminate on single phase imaging. PELVIC ORGANS/BLADDER: Unremarkable. PERITONEUM / RETROPERITONEUM: No free air or fluid. LYMPH NODES: No lymphadenopathy. VESSELS: Moderate at the carotid calcifications of the nonaneurysmal abdominal aorta and major branches. GI TRACT: No abnormal bowel thickening. No bowel obstruction. Mild diverticulosis. No CT evidence of diverticulitis. Postoperative findings of the stomach. BONES AND SOFT TISSUES: Anterior abdominal wall soft tissue stranding, possibly related to postoperative changes/scarring. No focal subcutaneous soft tissue fluid collection. No acute osseous injury. No suspicious lytic or blastic lesions. IMPRESSION: Mild peripancreatic fat stranding can be seen in the setting of mild acute pancreatitis. No pancreatic necrosis or fluid collection. Diffuse hepatic steatosis. 2.1 cm exophytic right upper pole renal mass is indeterminate on single phase contrast-enhanced imaging. Due to patient body habitus, ultrasound evaluation of this finding is likely to be suboptimal. Recommend nonurgent CT abdomen and pelvis renal mass protocol for further evaluation. Signed by: Frank Ochoa MD on 07/26/2019 4:10 PM
[2019-07-26] MEDS ORDERED: ONDANSETRON HCL INJ 2MG/ML 2ML 2 MG/ML VIAL ONE (17:15)
[2019-07-26] MEDS: SODIUM CHLORIDE 0.9% 1000ML 1,000 ML IV SCH ×2 (17:19→19:47)
[2019-07-26 18:00] VITALS: BP 176/67
--- NOTE | 2019-07-26 19:00 | NUR ---
Pt received to the floor from ER. Pt aox3 and able to verbalize needs. Pt is NPO at this time. Pt is ambulatory. Dressing to mid abdomen and dressing was changed. Pt complained of pain and nausea. Notified Dr. Dixon and received orders for pain and nausea medications.
[2019-07-26] MEDS: ONDANSETRON HCL INJ 2MG/ML 2ML 2 MG/ML VIAL IV PRN ×2 (19:48→23:45)
[2019-07-26] MEDS: HYDROMORPHONE 1MG/1ML INJ IV PRN ×2 (19:48→23:45)
[2019-07-26 20:00] VITALS: BP 150/65
[2019-07-26] MEDS ORDERED: ZINC SULFATE220 M1 PO (20:58)
[2019-07-26] MEDS ORDERED: NORCO 7.5-3251 EACH PO (20:58)
[2019-07-26] MEDS ORDERED: CELEBREX100 MG PO (20:58)
[2019-07-26] MEDS ORDERED: COLACE100 MG PO (20:58)
[2019-07-26] MEDS ORDERED: DOXYCYCLINE HY100 MG PO (20:58)
[2019-07-26 21:24] VITALS: BP 150/65
[2019-07-27] VITALS (8 sets, daily range): BP systolic 128–176; BP diastolic 57–76
[2019-07-27] MEDS: ONDANSETRON HCL INJ 2MG/ML 2ML 2 MG/ML VIAL IV PRN ×7 (03:30→23:40)
[2019-07-27] MEDS: HYDROMORPHONE 1MG/1ML INJ IV PRN ×6 (03:30→23:40)
[2019-07-27 06:46] LABS: BASOPHILS % 0.2 % (0.0-1.0); EOSINOPHILS # (AUTO) 0.1 (0.0-0.4); HEMOGLOBIN 8.4 g/dL (12.0-16.0); LYMPHOCYTES # (AUTO) 1.1 (1.0-3.2); LYMPHOCYTES % 20.6 % (18.0-39.1); MEAN CORPUSCULAR HEMOGLOBIN 24.5 pg (28-32); MEAN CORPUSCULAR VOLUME 84.5 fL (81-99); MONOCYTES # (AUTO) 0.4 (0.2-0.8); MONOCYTES % 8.2 % (4.4-11.3); NEUTROPHILS # (AUTO) 3.6 (2.1-6.9); NEUTROPHILS % 69.4 % (38.7-80.0); PLATELET COUNT 245 x10e3/uL (140-360); RED BLOOD COUNT 3.43 x10e6/uL (3.6-5.1); RED CELL DISTRIBUTION WIDTH 20.2 % (11.7-14.4)
[2019-07-27] MEDS: SODIUM CHLORIDE 0.9% 1000ML 1,000 ML IV SCH ×2 (07:30→16:35)
[2019-07-27 07:33] LABS: ALBUMIN 2.2 g/dL (3.5-5.0); ALBUMIN/GLOBULIN RATIO 0.6 (0.8-2.0); ANION GAP 10.9 mmol/L (8-16); CALCIUM 8.3 mg/dL (8.4-10.2); CREATININE, SERUM 0.99 mg/dL (0.57-1.11); POTASSIUM 3.9 mmol/L (3.5-5.1)
[2019-07-27 07:55] LABS: CREATINE KINASE MB 2.7 ng/mL (0-5.0)
[2019-07-27] MEDS: VANCOMYCIN 1GM/NS 250 ML 250 ML IV SCH (15:24)
[2019-07-27 15:30] LABS: CREATINE KINASE MB 3.4 ng/mL (0-5.0)
--- NOTE | 2019-07-27 19:00 | NUR ---
Received bedside report from day nurse. Patient awake and sitting up in bed, no s/s of distress at this time. Bed locked and in low position, side rails up, call light placed within reach. Patient instructed to call for assistance if needed, verbalized understanding. All safety measures in place. Will continue to monitor.
--- NOTE | 2019-07-27 21:52 | Consultation ---
DATE OF CONSULTATION: 07/27/2019 HISTORY OF PRESENT ILLNESS: The patient is a 63-year-old female, well known to me. She presented to the emergency room with complaints of severe nausea. She says she is unable to keep anything down. It has been going on for couple of days. Evaluation in emergency room revealed inflammation around the pancreas, suggestive of pancreatitis. The patient had recent surgery for small bowel obstruction due to incarcerated recurrent ventral hernia. She has had multiple previous hernia repairs. PAST MEDICAL HISTORY: Significant for arthritis, back pain. She has had previous cholecystectomy, hysterectomy, as well as multiple previous incisional hernia repairs. MEDICATIONS: Listed in the chart. ALLERGIES: SHE HAS ALLERGY TO CLINDAMYCIN. FAMILY HISTORY: Noncontributory. SOCIAL HISTORY: The patient is . Does not smoke cigarettes or drink alcohol. REVIEW OF SYSTEMS: As stated above, otherwise was negative. PHYSICAL EXAMINATION: GENERAL: The patient is awake and alert, in no distress. VITAL SIGNS: Normal. HEENT: Sclerae are not icteric. NECK: No masses. LUNGS: Equal breath sounds are clear bilaterally. CARDIAC: Regular rate and rhythm with no murmur. ABDOMEN: Soft. There is a slight open wound in the midline with some serous drainage. There was no erythema and no purulence. EXTREMITIES: Have no edema. NEUROLOGIC: Grossly intact. ASSESSMENT: A 63-year-old female with pancreatitis. RECOMMENDATIONS: Keep her n.p.o., on IV fluids. The open wound on the abdomen previously was cultured for MRSA and plan is to start on vancomycin for this. There are no findings that would warrant surgical intervention at this time. Thank you for asking me to see Ms. Xie. MD PAYTON Razo/BIPIN /[id number]
[2019-07-28] VITALS (8 sets, daily range): BP systolic 135–194; BP diastolic 58–78
[2019-07-28] MEDS: VANCOMYCIN 1GM/NS 250 ML 250 ML IV SCH ×2 (02:49→15:55)
[2019-07-28] MEDS: ONDANSETRON HCL INJ 2MG/ML 2ML 2 MG/ML VIAL IV PRN ×5 (03:46→20:05)
[2019-07-28] MEDS: HYDROMORPHONE 1MG/1ML INJ IV PRN ×5 (03:46→20:05)
[2019-07-28] MEDS: SODIUM CHLORIDE 0.9% 1000ML 1,000 ML IV SCH ×2 (05:48→17:30)
--- NOTE | 2019-07-28 07:07 | NUR ---
Bedside report given to day nurse. Patient in stable condition, no s/s of distress at this time. All safety measures in place.
--- NOTE | 2019-07-28 07:35 | NUR ---
PATIENT IN BED RESTING WITH NO S/S OF DISTRESS. IV FLUID INFUSING ORDERED. BED IN LOWER POSITION, CALL LIGHT AT REACH.
--- NOTE | 2019-07-28 10:28 | Progress Note ---
DATE: 07/28/2019 SUBJECTIVE: Ms. Xie is a 63-year-old female with ventral hernia repair in April 2019, where apparently she had some MRSA on the open wound, so she was started on vancomycin by Dr. Dixon. Came to the emergency room complaining of 2 days history of nausea and vomiting. Lipase came back elevated, and abdomen and pelvic CT showed pancreatitis. So, the patient at present time, she is admitted for acute pancreatitis. PHYSICAL EXAMINATION: GENERAL: She is awake and alert, feeling better. VITAL SIGNS: Temperature is 97.1, blood pressure 156/67. HEART: Regular rate. LUNGS: Clear to auscultation. ABDOMEN: Soft. LABORATORY WORK: On the blood work; white count 5.24, hemoglobin 8.4, hematocrit 29. Potassium 3.9, creatinine 0.99. Troponin negative. Lipase came 155. Abdominal and pelvic CT show acute pancreatitis. ASSESSMENT: 1. Abdominal pain secondary to acute pancreatitis. 2. Anemia. 3. Recent ventral hernia repair with methicillin-resistant Staphylococcus aureus in the culture. PLAN: At present time is continue n.p.o., IV fluids, morphine for pain. She was started on vancomycin by Dr. Dixon due to prior history of MRSA in the surgical wound. All this was discussed with the patient. All questions were answered to satisfaction. Overall, she is doing better. MD HIRA Maldonado/BIPIN /[id number]
--- NOTE | 2019-07-28 11:50 | NUR ---
PATIENT ASSISTED WITH SHOWER. DRESSING CHANGED TO MID ABDOMEN. IN BED WITH CALL LIGHT AT REACH.
[2019-07-28 12:58] LABS: FERRITIN 36.59 ng/mL (4.63-204.00)
[2019-07-28] MEDS: IRON SUCROSE 100 MG in SODIUM CHLORIDE 0.9% 100 ML 100 ML IV SCH (14:44)
--- NOTE | 2019-07-28 16:29 | NUR ---
Nutrition Intervention Note RD Recommendation(s) for Physician: -Recommend advancing to low fat diet when medically appropriate -If PO intake <50% of meals when diet advances, recommend to provide pt with Ensure Clear The patient meets criteria for unspecified SEVERE protein-calorie malnutrition at this time. Plan of Care: RD following, monitoring for tolerance and adequacy Nutrition reason for involvement: Nutrition Risk Trigger MST 6 RD Assessment (07/28/19) Pt is a 63 year old female admitted with abdominal pain secondary to pancreatitis. Pt stated she had not been able to eating anything for the past 5 days due to nausea. Pt also reports she had unintentionally lost weight and used to weigh 306 lbs in April. Pt currently has a weight of 269 lbs in chart. This would be a 12% weight loss in 3 months which is considered to be significant weight loss. Recommend advancing to a low fat diet when medically appropriate. Will continue to monitor unless consulted sooner. Principal Problems/Diagnoses: abdominal pain secondary to pancreatitis PMH: arthritis, back pain I/O: 1275/- GI: soft, large, round, tender abdomen Skin: no pressure ulcers Labs: (07/27/19) Ca 8.3 (07/26/19) Lipase 155 IVF: NaCl @ 125 mL/hr, IV iron @ 105 mL/hr Meds: zofran, dilaudid, vancomycin Ht: 65 in Wt:269 lb BMI: 44.8 kg/m2 IBW:125 lb Malnutrition Evaluation (07/28/19) The patient meets criteria for unspecified SEVERE protein-calorie malnutrition. Energy intake: <50% of estimated energy requirements for 5 days Weight loss: >7.5% in 3 months (Acute) Fat loss: no loss per observation Muscle loss: no loss per observation Supporting Evidence: Fluid accumulation: no edema per MD note Functional Status: unable to evaluate Nutrition Prescription (Diet Order): NPO Estimated Nutritional Needs: 4942-7816 calories/day (22-25 kcal/kg IBW) 85-114 g protein/day (1.5-2 g pro/kg IBW) Diet Adequacy: Not meeting calorie needs, Not meeting protein needs Tolerance: N/A Diet Education Needs Assessment: Diet education not indicated, patient on temporary/transition diet. Nutrition Care Level: high Nutrition Diagnosis: Severe protein kcal malnutrition related to acute illness as evidenced by pt meeting <50% of estimated energy needs for > 5 days and >7.5% weight loss in 3 months per pt report. Goal: Patient will meet 75-100% of estimated needs by follow up Progress: N/A Interventions: -fat- modified diet Monitoring/Evaluation: -Total energy intake, Total protein intake, Modified diet, Weight change Signed: Halie Damon RD, LD
--- NOTE | 2019-07-28 16:31 | NUR ---
MD IN TO SEE PATIENT, NEW ORDER RECEIVED.
--- NOTE | 2019-07-28 19:15 | NUR ---
Patient visited in room during nursing rounds. Patient alert and oriented x3. Pt ambulatory in room prn. On IVF (NS at 125ml/hr). On scheduled IV antibiotics. Abd wound on mid abd covered with gauze and silk tape (C/D/I). Pt has frequent pain on abdomen and back and will be medicated accordingly. Call ibrahim within reach. Will monitor closely.
[2019-07-28] MEDS ORDERED: CYANOCOBALAMIN INJ 1,000 MCG/ML VIAL IM ONE (23:00)
--- NOTE | 2019-07-28 23:00 | NUR ---
Dr. Lopez Oh came and saw pt in room. MD aware of pt condition. MD explained pt will receive IM injection of Vit B12 daily with 1st dose tonight.
--- NOTE | 2019-07-28 23:30 | NUR ---
IV (20 gauge) on right forearm got infiltrated and was taken out by nurse. Will insert new peripheral IV on patient.
[2019-07-29] VITALS: BP 146/50
--- NOTE | 2019-07-29 00:40 | NUR ---
After 5 unsuccessful attempts, a new peripheral IV was inserted on left wrist 22 gauge. IVF was restarted
[2019-07-29] MEDS: HYDROMORPHONE 1MG/1ML INJ IV PRN ×3 (00:54→14:20)
[2019-07-29] MEDS: ONDANSETRON HCL INJ 2MG/ML 2ML 2 MG/ML VIAL IV PRN ×3 (00:54→14:20)
[2019-07-29] MEDS: SODIUM CHLORIDE 0.9% 1000ML 1,000 ML IV SCH (00:54)
[2019-07-29] MEDS: VANCOMYCIN 1GM/NS 250 ML 250 ML IV SCH (02:30)
[2019-07-29 04:00] VITALS: BP 173/70
[2019-07-29 06:12] LABS: EOSINOPHILS # (AUTO) 0.2 (0.0-0.4); HEMATOCRIT 25.9 % (34.2-44.1); HEMOGLOBIN 7.6 g/dL (12.0-16.0); LYMPHOCYTES # (AUTO) 0.9 (1.0-3.2); MEAN CORPUSCULAR HEMOGLOBIN 24.6 pg (28-32); MEAN CORPUSCULAR HGB CONC 29.3 g/dL (31-35); MEAN CORPUSCULAR VOLUME 83.8 fL (81-99); MONOCYTES # (AUTO) 0.5 (0.2-0.8); NEUTROPHILS # (AUTO) 2.8 (2.1-6.9); PLATELET COUNT 224 x10e3/uL (140-360); RED BLOOD COUNT 3.09 x10e6/uL (3.6-5.1); RED CELL DISTRIBUTION WIDTH 20.4 % (11.7-14.4)
[2019-07-29 06:33] LABS: ALANINE AMINOTRANSFERASE 12 IU/L (0-55); ALBUMIN 1.9 g/dL (3.5-5.0); ALBUMIN/GLOBULIN RATIO 0.5 (0.8-2.0); ALKALINE PHOSPHATASE 118 IU/L (40-150); ANION GAP 9.6 mmol/L (8-16); BLOOD UREA NITROGEN 10 mg/dL (7-26); BUN/CREATININE RATIO 12 (6-25); CALCIUM 7.8 mg/dL (8.4-10.2); CARBON DIOXIDE 22 mmol/L (22-29); CHLORIDE 112 mmol/L (98-107); CREATININE, SERUM 0.83 mg/dL (0.57-1.11); EST GLOMERULAR FILTRATION RATE > 60 ML/MIN (60-); GLUCOSE 72 mg/dL (74-118); LIPASE 40 U/L (8-78); POTASSIUM 3.6 mmol/L (3.5-5.1); SODIUM 140 mmol/L (136-145)
[2019-07-29 07:01] LABS: CHOL/HDL RATIO 2.8 (3.0-3.6)
--- NOTE | 2019-07-29 07:25 | NUR ---
PATIENT IN BED WITH HEAD OF BED ELEVATED WATCHING TV, NO COMPLAIN VOICED. BED IN LOWER POSITION, CALL LIGHT AT REACH.
[2019-07-29 07:35] VITALS: BP 144/57
[2019-07-29 08:05] VITALS: BP 144/57
[2019-07-29] MEDS ORDERED: CYANOCOBALAMIN INJ 1,000 MCG/ML VIAL IM SCH (09:00)
[2019-07-29 09:14] LABS: ANISOCYTOSIS MODERATE; EOSINOPHILS % (MANUAL) 2 % (0-7); LYMPHOCYTES % (MANUAL) 19 % (19-48); MONOCYTES % (MANUAL) 5 % (3.4-9.0); NEUTROPHILS % (MANUAL) 74 % (40-74)
[2019-07-29 09:15] LABS: HYPOCHROMASIA SLIGHT; PLATELET ESTIMATE ADEQUATE; PLATELET MORPHOLOGY COMMENT NORMAL; POIKILOCYTOSIS SLIGHT; RBC MORPHOLOGY COMMENT ABNORMAL
[2019-07-29 09:16] LABS: OVALOCYTES FEW
--- NOTE | 2019-07-29 11:00 | NUR ---
Pt. expressed no spiritual or emotional concerns at this time. C D Stripper provided hospitality and information on how to reach refrigerator room clerk, if needed. No need to follow at this time. C D Stripper Spiritual Care Department O: [phone]
--- NOTE | 2019-07-29 11:25 | NUR ---
ABDOMINAL DRESSING CHANGED. PATIENT IN BED WITH CALL LIGHT AT REACH.
[2019-07-29 11:27] VITALS: BP 162/72
[2019-07-29] MEDS: IRON SUCROSE 100 MG in SODIUM CHLORIDE 0.9% 100 ML 100 ML IV SCH (13:00)
[2019-07-29 15:34] VITALS: BP 191/78
--- NOTE | 2019-07-29 15:54 | NUR ---
PATIENT OUT OF BED TO CHAIR WATCHING TV. CALL LIGHT AT REACH.
[2019-07-29] MEDS ORDERED: CLARITHROMYCIN500 MG PO (17:07)
[2019-07-29] MEDS ORDERED: ZOFRAN4 MG PO (17:08)
--- NOTE | 2019-07-29 17:30 | NUR ---
PATIENT DISCHARGED HOME. DISCHARGE INSTRUCTIONS, PRESCRIPTIONS, AND FOLLOW UP GIVEN TO PATIENT, SHE VERBALIZED UNDERSTANDING. IV TO LEFT WRIST REMOVED WITH TIP INTACT. ALL PERSONAL ITEMS TAKEN WITH PATIENT. LEFT UNIT PER WHEEL CHAIR TO FRONT LOBBY IN STABLE CONDITION.
--- NOTE | 2019-07-30 03:56 | Discharge Summary ---
HISTORY OF PRESENT ILLNESS: Ms. Xie is a 63-year-old female with history of recent ventral hernia repair, came to the emergency room, complaining of 2 days history of nausea and vomiting. Lipase was elevated. CAT scan show acute pancreatitis. The patient was started n.p.o. with IV fluids. She is doing better. She was started on clear diet and we are going to advance her. If she can tolerate a diet, she is going to be discharged home. PHYSICAL EXAMINATION: GENERAL: She is awake and alert. She is feeling better. VITAL SIGNS: Temperature is 98.1, blood pressure is 144/57. HEART: Regular rate. LUNGS: Clear to auscultation. ABDOMEN: Soft. LABORATORY DATA: On the blood work, white count is 4.34, hemoglobin is 7.6, hematocrit is 25.9. Potassium 3.6, creatinine is 0.83. Coronavirus came back negative. A CAT scan show acute pancreatitis. ASSESSMENT: 1. Abdominal pain secondary to acute pancreatitis. 2. Anemia. 3. Recent ventral hernia repair with methicillin-resistant Staphylococcus aureus staph infection. PLAN: At the present time is to continue to advance diet. If she can tolerate it, she may go home. She is going to have to follow up with GI as an outpatient and with her PCP to have anemia workup. Please see home medication reconciliation list. All this was discussed with the patient. All questions were answered to satisfaction. MD HIRA Maldonado/BIPIN /[id number]
== END 2019-07-29 17:24 | disposition home or self-care (01) | DRG 439 ==
LOC: ER 12:36 → ERHOLD 15:43 → MED/SURG3 17:55
PROVIDERS: ADMIT Internal Medicine; ATTEND Internal Medicine
DX: K85.90 Acute pancreatitis without necrosis or infection, unspecified (principal); Z68.41 Body mass index [BMI] 40.0-44.9, adult; K76.0 Fatty (change of) liver, not elsewhere classified; D64.9 Anemia, unspecified; B95.62 Methicillin resistant Staphylococcus aureus infection as the cause of diseases classified elsewhere; Z98.890 Other specified postprocedural states; E66.9 Obesity, unspecified; E66.01 Morbid (severe) obesity due to excess calories
CPT/HCPCS: 36415; 74177; 80053; 80061; 80202; 81001; 82550; 82553; 82607; 82728; 82746; 83540; 83690; 83880; 84466; 84484; 85007; 85025; 85027; 85045; 86301; 87635; 93005; 96361; 99284; J1170; J1756; J1885; J2405; J3370; J3420; J7030; Q9967

== ENCOUNTER → 2019-12-31 | Day surgery (SDC) | payer MEDICARE, OTHER ==
[2019-12-28 10:41] LABS: BASOPHILS % 0.4 % (0.0-1.0); EOSINOPHILS # (AUTO) 0.2 (0.0-0.4); EOSINOPHILS % 3.5 % (0.0-6.0); HEMATOCRIT 33.6 % (34.2-44.1); HEMOGLOBIN 10.3 g/dL (12.0-16.0); LYMPHOCYTES # (AUTO) 1.2 (1.0-3.2); MEAN CORPUSCULAR HEMOGLOBIN 27.7 pg (28-32); MEAN CORPUSCULAR HGB CONC 30.7 g/dL (31-35); MEAN CORPUSCULAR VOLUME 90.3 fL (81-99); MONOCYTES # (AUTO) 0.4 (0.2-0.8); MONOCYTES % 8.1 % (4.4-11.3); NEUTROPHILS # (AUTO) 3.3 (2.1-6.9); NEUTROPHILS % 63.6 % (38.7-80.0); PLATELET COUNT 283 x10e3/uL (140-360); RED BLOOD COUNT 3.72 x10e6/uL (3.6-5.1); RED CELL DISTRIBUTION WIDTH 13.9 % (11.7-14.4)
[2019-12-28 11:08] LABS: ALBUMIN 3.3 g/dL (3.5-5.0); ALBUMIN/GLOBULIN RATIO 0.8 (0.8-2.0); ANION GAP 11.3 mmol/L (8-16); CALCIUM 9.2 mg/dL (8.4-10.2); CREATININE, SERUM 1.31 mg/dL (0.57-1.11); POTASSIUM 4.3 mmol/L (3.5-5.1)
--- NOTE | 2019-12-28 11:22 | Diagnostic Imaging Report ---
EXAMINATION: CHEST 2 VIEWS INDICATION: PRE OP COMPARISON: None FINDINGS: TUBES and LINES: None. LUNGS: Lungs are well inflated. Minimal patchy bibasilar opacities, likely atelectasis. There is no evidence of pneumonia or pulmonary edema. PLEURA: No pleural effusion or pneumothorax. HEART AND MEDIASTINUM: The cardiomediastinal silhouette is unremarkable. There are atherosclerotic calcifications within the aorta. BONES AND SOFT TISSUES: No acute osseous lesion. Soft tissues are unremarkable. UPPER ABDOMEN: No free air under the diaphragm. IMPRESSION: No acute thoracic abnormality. Signed by: Dr. Valeriy Nguyen MD on 12/28/2019 11:19 AM
[~2019-12-31] MED LIST: ALIGN4 MG PO; ATROPINE SULFATE 1 MG/ML VIAL ONE; BUPIVACAINE HCL 0.5% INJ 30 ML VIAL INJ ONE; CELEBREX100 MG PO; CITRACAL-D3 MA1 EACH PO; CLARITHROMYCIN500 MG PO; COLACE100 MG PO; DEXAMETHASONE SOD PHOS INJ 4 MG/ML VIAL ONE; DOXYCYCLINE HY100 MG PO; FENTANYL CITRATE/PF 100MCG/2 ML INJ ONE; LIDOCAINE HCL 2% LOCAL INJ 5 ML SDV VIAL INJ ONE; MIDAZOLAM HCL 2 MG/2 ML VIAL ONE; NEOSTIGMINE 1 MG/ML 10ML VIAL ONE; NORCO 7.5-3251 EACH PO; ONDANSETRON HCL INJ 2MG/ML 2ML 2 MG/ML VIAL ONE; OXYBUTYNIN CHLOR5 M1 PO; PROPOFOL IV EMULSION 10 MG/ML 20 ML VIAL ONE; ROCURONIUM BROMIDE 10 MG/ML 5ML VIAL IV ONE; SEVOFLURANE INHAL SOLN 250 ML PEN BTL ONE; TIZANIDINE HCL4 MG PO; VANCOMYCIN 1GM/NS 250 ML 250 ML ONE; VIT D3 PO; ZINC SULFATE220 M1 PO; ZOFRAN4 MG PO
[2019-12-31 15:05] VITALS: BP 173/83
--- NOTE | 2019-12-31 16:53 | Operative Report ---
DATE OF PROCEDURE: 12/31/2019 SURGEON: Bjorn Dixon MD POSTOPERATIVE DIAGNOSIS: Infected abdominal wall mesh. POSTOPERATIVE DIAGNOSIS: Infected abdominal wall mesh with recurrent incisional hernia. PROCEDURE: Removal of infected abdominal wall mesh, repair of recurrent incisional hernia with a biologic SurgiMend mesh. TABLET TESTER: None. ANESTHESIA: General. INDICATIONS AND FINDINGS: The patient is a 64-year-old female, multiple previous surgeries for abdominal wall hernias, who had surgery several months ago, developed drainage from the wound with probable infection of the underlying mesh. At Surgery, there was mesh with fluid around it in the abdominal wall, which was removed. There was bowel immediately beneath the mesh, which was left in place. Once the mesh was removed, the resultant fascial defect hernia that was about 4 x 6 cm. TECHNIQUE: After adequate general anesthesia with patient in supine position, the abdomen was prepped and draped in a sterile fashion. ChloraPrep solution an elliptical incision made encompassing the sinus tract opening, carried down through the skin and there was found to be some fibrosis in the subcutaneous tissue. All this was excised. There was mesh medially beneath this. There was fluid around the mesh with some fibrinous exudate. The ellipse of skin was removed. The mesh was then dissected free. Care was taken not to injure any underlying bowel. The mesh was opened and the mesh was removed all the way back to the fascia as mesh as possible was removed. All the mesh that appeared to be an all the infection was removed. Once the mesh was removed, there was a resultant fascial defect hernia of about 4 x 6 cm. Underlying bile could be seen as all appeared to be intact. A SurgiMend mesh was hydrated. This was fashioned appropriate size and sutured to the undersurface of the fascial edges with a running suture of #0 Prolene. Care was taken not to injure or entrap the underlying bowel. Once the mesh was in place, the wound was irrigated with saline, inspected for hemostasis which was seen to be adequate. The subcutaneous tissue was closed with running suture 3-0 Vicryl. Skin was closed with yuko. Sterile dressing was applied. The patient tolerated the procedure well estimated blood loss was 10 mL. There were no complications. All counts were correct and the patient was taken to the recovery room in satisfactory condition. MD PAYTON Razo/BIPIN /[id number]
== END | disposition home or self-care (01) ==
LOC: OR 10:45
PROVIDERS: ATTEND Surgery
DX: T85.79XA Infection and inflammatory reaction due to other internal prosthetic devices, implants and grafts, initial encounter (principal); K43.2 Incisional hernia without obstruction or gangrene; M54.5 Low back pain; R00.1 Bradycardia, unspecified; Y83.8 Other surgical procedures as the cause of abnormal reaction of the patient, or of later complication, without mention of misadventure at the time of the procedure; Z88.1 Allergy status to other antibiotic agents; Z01.810 Encounter for preprocedural cardiovascular examination; Z01.812 Encounter for preprocedural laboratory examination; Z01.818 Encounter for other preprocedural examination; Z11.59 Encounter for screening for other viral diseases; Z68.42 Body mass index [BMI] 45.0-49.9, adult; Z87.891 Personal history of nicotine dependence
CPT/HCPCS: 36415; 49565; 49568; 71046; 80053; 85025; 88304; 93005; C9358; J0461; J1100; J2001; J2250; J2405; J2704; J2710; J3010; J3370; U0002; 88302

== ENCOUNTER → 2020-05-05 | Day surgery (SDC) | payer MEDICARE ==
[2020-05-02 08:41] LABS: BASOPHILS % 0.5 % (0.0-1.0); EOSINOPHILS # (AUTO) 0.2 (0.0-0.4); EOSINOPHILS % 2.8 % (0.0-6.0); HEMATOCRIT 39.5 % (34.2-44.1); HEMOGLOBIN 11.9 g/dL (12.0-16.0); LYMPHOCYTES # (AUTO) 1.4 (1.0-3.2); LYMPHOCYTES % 22.3 % (18.0-39.1); MEAN CORPUSCULAR HEMOGLOBIN 27.7 pg (28-32); MEAN CORPUSCULAR HGB CONC 30.1 g/dL (31-35); MEAN CORPUSCULAR VOLUME 91.9 fL (81-99); MONOCYTES # (AUTO) 0.5 (0.2-0.8); MONOCYTES % 7.1 % (4.4-11.3); NEUTROPHILS # (AUTO) 4.2 (2.1-6.9); NEUTROPHILS % 66.4 % (38.7-80.0); PLATELET COUNT 319 x10e3/uL (140-360); RED CELL DISTRIBUTION WIDTH 14.8 % (11.7-14.4)
[2020-05-02 08:59] LABS: ANION GAP 13.5 mmol/L (8-16); CREATININE, SERUM 1.35 mg/dL (0.57-1.11); POTASSIUM 4.5 mmol/L (3.5-5.1)
[~2020-05-05] MED LIST changes: -ATROPINE SULFATE 1 MG/ML VIAL ONE; +BUPIVACAINE 0.25% 30ML SDV ONE; -BUPIVACAINE HCL 0.5% INJ 30 ML VIAL INJ ONE; +ETOMIDATE 2 MG/ML 10 ML INJ IV ONE; +LIDOCAINE HCL 1% LOCAL INJ 20 ML VIAL ONE; -LIDOCAINE HCL 2% LOCAL INJ 5 ML SDV VIAL INJ ONE; -NEOSTIGMINE 1 MG/ML 10ML VIAL ONE; -ROCURONIUM BROMIDE 10 MG/ML 5ML VIAL IV ONE; +TYLENOL # 31 EA PO
[2020-05-05 13:35] VITALS: BP 150/67
== END | disposition home or self-care (01) ==
LOC: OR 10:13
PROVIDERS: ATTEND Surgery
DX: S31.109A Unspecified open wound of abdominal wall, unspecified quadrant without penetration into peritoneal cavity, initial encounter (principal); G89.29 Other chronic pain; X58.XXXA Exposure to other specified factors, initial encounter; Z88.1 Allergy status to other antibiotic agents; Z01.810 Encounter for preprocedural cardiovascular examination; Z01.812 Encounter for preprocedural laboratory examination; Z20.822 Contact with and (suspected) exposure to COVID-19; Z68.42 Body mass index [BMI] 45.0-49.9, adult
CPT/HCPCS: 14000; 36415; 80048; 85025; 93005; J1100; J2405; J2704; J3370; U0002; J2001; J2250; J3010

== ENCOUNTER 2021-03-23 17:52 | Inpatient (IN) | payer MEDICARE, OTHER ==
[~2021-03-23] VITALS: Ht 165.1 cm; Wt 138.9 kg
[~2021-03-23 17:52] MED LIST changes: -BUPIVACAINE 0.25% 30ML SDV ONE; -DEXAMETHASONE SOD PHOS INJ 4 MG/ML VIAL ONE; -ETOMIDATE 2 MG/ML 10 ML INJ IV ONE; -FENTANYL CITRATE/PF 100MCG/2 ML INJ ONE; -LIDOCAINE HCL 1% LOCAL INJ 20 ML VIAL ONE; -MIDAZOLAM HCL 2 MG/2 ML VIAL ONE; -ONDANSETRON HCL INJ 2MG/ML 2ML 2 MG/ML VIAL ONE; -PROPOFOL IV EMULSION 10 MG/ML 20 ML VIAL ONE; -SEVOFLURANE INHAL SOLN 250 ML PEN BTL ONE; -VANCOMYCIN 1GM/NS 250 ML 250 ML ONE
[2021-03-23] MEDS ORDERED: ONDANSETRON HCL INJ 2MG/ML 2ML 2 MG/ML VIAL IV STA (17:58)
[2021-03-23] MEDS ORDERED: SODIUM CHLORIDE 0.9% 1000ML 1,000 ML IV ONE (18:15)
[2021-03-23 18:30] LABS: BASOPHILS % 0.4 % (0.0-1.0); EOSINOPHILS % 0.3 % (0.0-6.0); HEMATOCRIT 40.2 % (34.2-44.1); HEMOGLOBIN 12.8 g/dL (12.0-16.0); LYMPHOCYTES # (AUTO) 0.6 (1.0-3.2); LYMPHOCYTES % 9.4 % (18.0-39.1); MEAN CORPUSCULAR HEMOGLOBIN 29.8 pg (28-32); MEAN CORPUSCULAR HGB CONC 31.8 g/dL (31-35); MEAN CORPUSCULAR VOLUME 93.7 fL (81-99); MONOCYTES # (AUTO) 0.7 (0.2-0.8); MONOCYTES % 9.7 % (4.4-11.3); NEUTROPHILS # (AUTO) 5.4 (2.1-6.9); NEUTROPHILS % 79.5 % (38.7-80.0); PLATELET COUNT 367 x10e3/uL (140-360); RED BLOOD COUNT 4.29 x10e6/uL (3.6-5.1); RED CELL DISTRIBUTION WIDTH 13.7 % (11.7-14.4)
[2021-03-23] MEDS ORDERED: ACETAMINOPHEN 325 MG TAB PO ONE (18:30)
[2021-03-23 18:49] LABS: ALBUMIN 2.9 g/dL (3.5-5.0); ALBUMIN/GLOBULIN RATIO 0.6 (0.8-2.0); AMYLASE 20 U/L (25-125); ANION GAP 17.5 mmol/L (8-16); CALCIUM 9.3 mg/dL (8.4-10.2); CREATININE, SERUM 1.42 mg/dL (0.57-1.11); LIPASE 10 U/L (8-78); POTASSIUM 4.5 mmol/L (3.5-5.1)
[2021-03-23 19:26] LABS: CLARITY,URINE SL CLOUDY (CLEAR); COLOR,URINE YELLOW (YELLOW); KETONES,URINE NEGATIVE (NEGATIVE); LEUKOCYTE ESTERASE ,URINE NEGATIVE (NEGATIVE); NITRITE,URINE POSITIVE (NEGATIVE); PROTEIN,URINE DIPSTICK 1+ (NEGATIVE)
[2021-03-23 19:27] LABS: URINE UROBILINOGEN 1 mg/dL (0.2 - 1)
[2021-03-23 19:30] LABS: BACTERIA,URINE MANY /HPF; EPITHELIAL CELLS,URINE MODERATE /LPF; RBC,URINE 0-5 /HPF (0-5); WBC,URINE (MAN) 0-5 /HPF (0-5)
[2021-03-23] MEDS ORDERED: ACETAMINOPHEN 325 MG TAB PO PRN (21:30)
[2021-03-23] MEDS ORDERED: Morphine 2mg Syringe 2 MG/ML SYR IV PRN (21:30)
[2021-03-23] MEDS ORDERED: CEFTRIAXONE 2 GM VIAL ONE (21:45)
[2021-03-23] MEDS ORDERED: HYDROMORPHONE 1MG/1ML INJ IV PRN (21:45)
[2021-03-23] MEDS: SODIUM CHLORIDE 0.9% 1000ML 1,000 ML IV SCH (22:35)
[2021-03-23] MEDS: ONDANSETRON HCL INJ 2MG/ML 2ML 2 MG/ML VIAL IV PRN (22:36)
[2021-03-24] VITALS (7 sets, daily range): BP systolic 123–150; BP diastolic 48–66
[2021-03-24] MEDS: HYDROMORPHONE 1MG/1ML INJ IV PRN ×6 (00:30→22:31)
[2021-03-24] MEDS ORDERED: ONDANSETRON HCL INJ 2MG/ML 2ML 2 MG/ML VIAL IV PRN (01:15)
[2021-03-24] MEDS ORDERED: HYDRALAZINE HCL 20 MG/ML VIAL IV PRN (01:15)
[2021-03-24] MEDS ORDERED: POLYETHYLENE GLYCOL 3350 17 GM PACK PO PRN (01:15)
[2021-03-24] MEDS: SODIUM CHLORIDE 0.9% 1000ML 1,000 ML IV SCH ×3 (05:46→21:02)
[2021-03-24] MEDS: ONDANSETRON HCL INJ 2MG/ML 2ML 2 MG/ML VIAL IV PRN ×4 (06:25→22:32)
[2021-03-24] MEDS ORDERED: REMDESIVIR 200MG 200 MG in SODIUM CHLORIDE 0.9% 100 ML IV ONE (08:30)
[2021-03-24 08:43] LABS: BASOPHILS % 0.3 % (0.0-1.0); EOSINOPHILS # (AUTO) 0.1 (0.0-0.4); EOSINOPHILS % 0.8 % (0.0-6.0); HEMATOCRIT 36.9 % (34.2-44.1); HEMOGLOBIN 11.8 g/dL (12.0-16.0); LYMPHOCYTES # (AUTO) 0.8 (1.0-3.2); LYMPHOCYTES % 11.4 % (18.0-39.1); MEAN CORPUSCULAR HEMOGLOBIN 29.7 pg (28-32); MEAN CORPUSCULAR VOLUME 92.9 fL (81-99); MONOCYTES # (AUTO) 0.7 (0.2-0.8); MONOCYTES % 10.8 % (4.4-11.3); NEUTROPHILS % 75.5 % (38.7-80.0); PLATELET COUNT 330 x10e3/uL (140-360); RED BLOOD COUNT 3.97 x10e6/uL (3.6-5.1); RED CELL DISTRIBUTION WIDTH 13.5 % (11.7-14.4)
[2021-03-24] MEDS: ZINC SULFATE 50 MG CAP PO SCH (09:00)
[2021-03-24] MEDS: DOCUSATE SODIUM 100 MG CAP PO SCH ×2 (09:00→17:00)
[2021-03-24] MEDS ORDERED: DEXAMETHASONE SOD PHOS 10 MG/1 ML VIAL IV SCH (09:00)
[2021-03-24] MEDS ORDERED: CEFTRIAXONE 2 GM in SODIUM CHLORIDE 0.9% 100 ML IV SCH (09:00)
[2021-03-24] MEDS: FAMOTIDINE 20 MG/2 ML VIAL IV SCH (09:00)
[2021-03-24] MEDS: ASCORBIC ACID 500 MG TAB PO SCH ×2 (09:00→17:00)
[2021-03-24 09:07] LABS: ALBUMIN 2.6 g/dL (3.5-5.0); ALBUMIN/GLOBULIN RATIO 0.6 (0.8-2.0); ANION GAP 16.2 mmol/L (8-16); CREATININE, SERUM 1.35 mg/dL (0.57-1.11); POTASSIUM 4.2 mmol/L (3.5-5.1)
[2021-03-24 09:08] LABS: MAGNESIUM 1.7 MG/DL (1.3-2.1); PHOSPHORUS 3.4 MG/DL (2.3-4.7)
[2021-03-24 09:28] LABS: THYROID STIMULATING HORMONE 1.167 uIU/mL (0.350-4.940)
[2021-03-24] MEDS ORDERED: PROMETHAZINE 12.5MG/ NACL 0.9% 12.5 MG/50 ML BAG IV ONE (12:00)
[2021-03-24] MEDS ORDERED: TROSPIUM CHLORI20 MG PO (16:46)
[2021-03-25] VITALS (7 sets, daily range): BP systolic 99–153; BP diastolic 47–72
[2021-03-25] MEDS: HYDROMORPHONE 1MG/1ML INJ IV PRN ×6 (02:15→21:10)
[2021-03-25] MEDS: SODIUM CHLORIDE 0.9% 1000ML 1,000 ML IV SCH ×3 (05:11→21:10)
[2021-03-25] MEDS ORDERED: REMDESIVIR 100MG 100 MG in SODIUM CHLORIDE 0.9% 100 ML IV SCH (08:30)
[2021-03-25 09:02] LABS: BASOPHILS % 0.3 % (0.0-1.0); EOSINOPHILS # (AUTO) 0.1 (0.0-0.4); EOSINOPHILS % 1.2 % (0.0-6.0); HEMOGLOBIN 12.1 g/dL (12.0-16.0); LYMPHOCYTES # (AUTO) 1.3 (1.0-3.2); LYMPHOCYTES % 22.4 % (18.0-39.1); MEAN CORPUSCULAR HEMOGLOBIN 29.8 pg (28-32); MEAN CORPUSCULAR VOLUME 96.1 fL (81-99); MONOCYTES # (AUTO) 0.6 (0.2-0.8); MONOCYTES % 10.8 % (4.4-11.3); NEUTROPHILS # (AUTO) 3.8 (2.1-6.9); NEUTROPHILS % 64.6 % (38.7-80.0); PLATELET COUNT 388 x10e3/uL (140-360); RED BLOOD COUNT 4.06 x10e6/uL (3.6-5.1); RED CELL DISTRIBUTION WIDTH 13.8 % (11.7-14.4)
[2021-03-25 09:25] LABS: ALBUMIN 2.6 g/dL (3.5-5.0); ALBUMIN/GLOBULIN RATIO 0.6 (0.8-2.0); ANION GAP 16.2 mmol/L (8-16); CALCIUM 8.5 mg/dL (8.4-10.2); CREATININE, SERUM 1.37 mg/dL (0.57-1.11); POTASSIUM 4.2 mmol/L (3.5-5.1)
[2021-03-25] MEDS: FAMOTIDINE 20 MG/2 ML VIAL IV SCH (10:04)
[2021-03-25] MEDS: DOCUSATE SODIUM 100 MG CAP PO SCH ×2 (10:04→17:32)
[2021-03-25] MEDS: ASCORBIC ACID 500 MG TAB PO SCH ×2 (10:04→17:32)
[2021-03-25] MEDS: CEFTRIAXONE 1 GM in SODIUM CHLORIDE 0.9% 50ML 50 ML IV SCH (10:04)
[2021-03-25] MEDS: ZINC SULFATE 50 MG CAP PO SCH (10:04)
[2021-03-25] MEDS: ONDANSETRON HCL INJ 2MG/ML 2ML 2 MG/ML VIAL IV PRN ×2 (14:18→21:11)
[2021-03-25] MEDS ORDERED: PROMETHAZINE HCL (IM) 25 MG/ML VIAL IM ONE (15:45)
[2021-03-25] MEDS ORDERED: PROMETHAZINE 12.5MG/ NACL 0.9% 12.5 MG/50 ML BAG IV ONE (17:45)
[2021-03-26] VITALS (8 sets, daily range): BP systolic 125–156; BP diastolic 48–70
[2021-03-26] MEDS: HYDROMORPHONE 1MG/1ML INJ IV PRN ×8 (00:18→22:14)
[2021-03-26] MEDS: ONDANSETRON HCL INJ 2MG/ML 2ML 2 MG/ML VIAL IV PRN ×4 (03:45→21:03)
[2021-03-26] MEDS: SODIUM CHLORIDE 0.9% 1000ML 1,000 ML IV SCH ×3 (05:33→22:14)
[2021-03-26 06:13] LABS: BASOPHILS % 0.2 % (0.0-1.0); EOSINOPHILS # (AUTO) 0.1 (0.0-0.4); EOSINOPHILS % 1.1 % (0.0-6.0); HEMATOCRIT 34.8 % (34.2-44.1); HEMOGLOBIN 10.9 g/dL (12.0-16.0); LYMPHOCYTES # (AUTO) 1.1 (1.0-3.2); MEAN CORPUSCULAR HEMOGLOBIN 29.9 pg (28-32); MEAN CORPUSCULAR HGB CONC 31.3 g/dL (31-35); MEAN CORPUSCULAR VOLUME 95.6 fL (81-99); MONOCYTES # (AUTO) 0.7 (0.2-0.8); MONOCYTES % 12.2 % (4.4-11.3); NEUTROPHILS # (AUTO) 3.6 (2.1-6.9); NEUTROPHILS % 65.8 % (38.7-80.0); PLATELET COUNT 329 x10e3/uL (140-360); RED BLOOD COUNT 3.64 x10e6/uL (3.6-5.1); RED CELL DISTRIBUTION WIDTH 13.7 % (11.7-14.4)
[2021-03-26 06:48] LABS: MAGNESIUM 1.5 MG/DL (1.3-2.1); PHOSPHORUS 2.3 MG/DL (2.3-4.7)
[2021-03-26 06:54] LABS: ALBUMIN 2.1 g/dL (3.5-5.0); ALBUMIN/GLOBULIN RATIO 0.6 (0.8-2.0); ANION GAP 14.2 mmol/L (8-16); CALCIUM 7.7 mg/dL (8.4-10.2); CREATININE, SERUM 1.08 mg/dL (0.57-1.11); POTASSIUM 4.2 mmol/L (3.5-5.1)
[2021-03-26] MEDS: DOCUSATE SODIUM 100 MG CAP PO SCH ×2 (09:44→16:13)
[2021-03-26] MEDS: ZINC SULFATE 50 MG CAP PO SCH (09:44)
[2021-03-26] MEDS: CEFTRIAXONE 1 GM in SODIUM CHLORIDE 0.9% 50ML 50 ML IV SCH (09:44)
[2021-03-26] MEDS: ASCORBIC ACID 500 MG TAB PO SCH ×2 (09:44→16:13)
[2021-03-26] MEDS: FAMOTIDINE 20 MG/2 ML VIAL IV SCH (09:44)
[2021-03-26] MEDS ORDERED: HYDROCODONE/APAP 5MG-325MG TAB PO PRN (09:45)
[2021-03-27] VITALS (8 sets, daily range): BP systolic 118–160; BP diastolic 49–80
[2021-03-27] MEDS: HYDROMORPHONE 1MG/1ML INJ IV PRN ×8 (01:12→23:49)
[2021-03-27 05:18] LABS: BASOPHILS % 0.2 % (0.0-1.0); EOSINOPHILS # (AUTO) 0.1 (0.0-0.4); EOSINOPHILS % 1.8 % (0.0-6.0); HEMATOCRIT 34.1 % (34.2-44.1); HEMOGLOBIN 10.6 g/dL (12.0-16.0); MEAN CORPUSCULAR HEMOGLOBIN 30.4 pg (28-32); MEAN CORPUSCULAR HGB CONC 31.1 g/dL (31-35); MEAN CORPUSCULAR VOLUME 97.7 fL (81-99); MONOCYTES # (AUTO) 0.5 (0.2-0.8); MONOCYTES % 9.4 % (4.4-11.3); NEUTROPHILS # (AUTO) 3.5 (2.1-6.9); NEUTROPHILS % 68.8 % (38.7-80.0); PLATELET COUNT 301 x10e3/uL (140-360); RED BLOOD COUNT 3.49 x10e6/uL (3.6-5.1); RED CELL DISTRIBUTION WIDTH 13.9 % (11.7-14.4)
[2021-03-27 05:44] LABS: ALBUMIN/GLOBULIN RATIO 0.6 (0.8-2.0); ANION GAP 12.8 mmol/L (8-16); CALCIUM 7.8 mg/dL (8.4-10.2); CREATININE, SERUM 0.95 mg/dL (0.57-1.11); POTASSIUM 3.8 mmol/L (3.5-5.1)
[2021-03-27] MEDS: SODIUM CHLORIDE 0.9% 1000ML 1,000 ML IV SCH ×3 (06:15→20:57)
[2021-03-27] MEDS: FAMOTIDINE 20 MG/2 ML VIAL IV SCH (08:06)
[2021-03-27] MEDS: DOCUSATE SODIUM 100 MG CAP PO SCH ×2 (08:07→17:24)
[2021-03-27] MEDS: ONDANSETRON HCL INJ 2MG/ML 2ML 2 MG/ML VIAL IV PRN ×3 (08:07→20:45)
[2021-03-27] MEDS: CEFTRIAXONE 1 GM in SODIUM CHLORIDE 0.9% 50ML 50 ML IV SCH (08:07)
[2021-03-27] MEDS: ASCORBIC ACID 500 MG TAB PO SCH ×2 (08:07→17:24)
[2021-03-27] MEDS: ZINC SULFATE 50 MG CAP PO SCH (08:07)
[2021-03-28] VITALS (7 sets, daily range): BP systolic 104–149; BP diastolic 52–61
[2021-03-28] MEDS: HYDROMORPHONE 1MG/1ML INJ IV PRN ×3 (03:22→10:38)
[2021-03-28] MEDS: ONDANSETRON HCL INJ 2MG/ML 2ML 2 MG/ML VIAL IV PRN ×2 (03:22→10:53)
[2021-03-28] MEDS: SODIUM CHLORIDE 0.9% 1000ML 1,000 ML IV SCH ×2 (04:54→12:45)
[2021-03-28 06:21] LABS: BASOPHILS % 0.2 % (0.0-1.0); EOSINOPHILS # (AUTO) 0.1 (0.0-0.4); EOSINOPHILS % 2.2 % (0.0-6.0); HEMATOCRIT 32.2 % (34.2-44.1); HEMOGLOBIN 9.8 g/dL (12.0-16.0); MEAN CORPUSCULAR HEMOGLOBIN 29.4 pg (28-32); MEAN CORPUSCULAR HGB CONC 30.4 g/dL (31-35); MEAN CORPUSCULAR VOLUME 96.7 fL (81-99); MONOCYTES # (AUTO) 0.5 (0.2-0.8); MONOCYTES % 9.2 % (4.4-11.3); NEUTROPHILS # (AUTO) 3.7 (2.1-6.9); NEUTROPHILS % 68.7 % (38.7-80.0); PLATELET COUNT 309 x10e3/uL (140-360); RED BLOOD COUNT 3.33 x10e6/uL (3.6-5.1); RED CELL DISTRIBUTION WIDTH 13.9 % (11.7-14.4)
[2021-03-28 06:55] LABS: ALBUMIN 1.9 g/dL (3.5-5.0); ALBUMIN/GLOBULIN RATIO 0.5 (0.8-2.0); ANION GAP 13.7 mmol/L (8-16); CALCIUM 7.8 mg/dL (8.4-10.2); CREATININE, SERUM 0.92 mg/dL (0.57-1.11); POTASSIUM 3.7 mmol/L (3.5-5.1)
[2021-03-28] MEDS: DOCUSATE SODIUM 100 MG CAP PO SCH (09:15)
[2021-03-28] MEDS: ASCORBIC ACID 500 MG TAB PO SCH (09:15)
[2021-03-28] MEDS: ZINC SULFATE 50 MG CAP PO SCH (09:15)
[2021-03-28] MEDS: FAMOTIDINE 20 MG/2 ML VIAL IV SCH (09:15)
[2021-03-28] MEDS: CEFTRIAXONE 1 GM in SODIUM CHLORIDE 0.9% 50ML 50 ML IV SCH (09:15)
== END 2021-03-28 18:01 | disposition left against medical advice (07) | DRG 393 ==
LOC: ER 17:58 → ERHOLD 21:23 → MED/SURG2 03-24 08:22 → IMCU 03-28 16:18
PROVIDERS: ADMIT Internal Medicine; ATTEND Internal Medicine
PROC: 8E0ZXY6 Isolation (ICD-10-PCS; principal; 2021-03-23)
PROC: 05HY33Z Insertion of Infusion Device into Upper Vein, Percutaneous Approach (ICD-10-PCS; 2021-03-25)
DX: K43.6 Other and unspecified ventral hernia with obstruction, without gangrene (principal); U07.1 COVID-19; N39.0 Urinary tract infection, site not specified; Z68.43 Body mass index [BMI] 50.0-59.9, adult; N17.9 Acute kidney failure, unspecified; B96.20 Unspecified Escherichia coli [E. coli] as the cause of diseases classified elsewhere; I10 Essential (primary) hypertension; E66.01 Morbid (severe) obesity due to excess calories; N32.81 Overactive bladder; E83.42 Hypomagnesemia
CPT/HCPCS: 36415; 71045; 74018; 74176; 80053; 80061; 81001; 82150; 83036; 83605; 83690; 83735; 84100; 84443; 85025; 87040; 87086; 87186; 94799; 99284; J0456; J0696; J1100; J1170; J2270; J2405; J2550; J7030; J7050; U0002

== ENCOUNTER 2024-09-03 10:15 | Inpatient (IN) | payer MEDICARE, OTHER ==
[2024-09-03] VITALS (8 sets, daily range): BP systolic 125–133; BP diastolic 48–66; PULSE 76–78; RESP 16–20; TEMP 97.5–99.7; O2SAT 96–97
[~2024-09-03] VITALS: Ht 160 cm; Wt 152.6 kg
[~2024-09-03 10:15] MED LIST changes: +BACTRIM 400-801 EACH PO; +CALTRATE 600 +1 EAC1; +CITRACAL + BON1 EACH; +PROBIOTIC & AC1 EACH PO; +STOOL SOFTENER50 MG; +TROSPIUM CHLORI20 MG PO; +ULTRAM 50MG50 MG PO
[2024-09-03 11:39] LABS: BASOPHILS % 0.7 % (0.0-1.0); EOSINOPHILS % 0.5 % (0.0-6.0); LYMPHOCYTES % 12.6 % (18.0-39.1); MONOCYTES % 9.0 % (4.4-11.3); NEUTROPHILS % 75.6 % (38.7-80.0); RED CELL DISTRIBUTION WIDTH 15.2 % (11.7-14.4)
[2024-09-03] MEDS: Vancomycin IV 1 GM in SODIUM CHLORIDE 0.9% 250ML 250 ML IV ONE (11:39)
[2024-09-03] MEDS: SODIUM CHLORIDE 0.9% 1000ML 1,640 ML IV SCH (11:41)
[2024-09-03] MEDS: ONDANSETRON HCL INJ 2MG/ML 2ML 2 MG/ML VIAL IV PRN (11:42)
[2024-09-03] MEDS ORDERED: KETOROLAC TROMETHAMINE 30 MG/ML VIAL ONE (11:48)
[2024-09-03 12:02] LABS: EST GLOMERULAR FILTRATION RATE 35.0 ML/MIN (>=60)
[2024-09-03] MEDS: KETOROLAC TROMETHAMINE 30 MG/ML VIAL IV STA (12:11)
[2024-09-03] MEDS: Morphine 4mg INJECTION 4 MG/ML INJ IV PRN (12:12)
[2024-09-03 12:14] LABS: INR 1.02
[2024-09-03] MEDS ORDERED: IOPAMIDOL 370 MG/ML 100 ML INFUS..BTL INJ ONE (12:56)
[2024-09-03] MEDS ORDERED: SEVOFLURANE INHAL SOLN 250 ML PEN BTL ONE (14:38)
[2024-09-03] MEDS: TRAMADOL HCL 50 MG TAB PO PRN (17:17)
[2024-09-03] MEDS: SODIUM CHLORIDE 0.9% 1000ML 1,000 ML IV SCH (18:20)
[2024-09-04] VITALS (7 sets, daily range): BP systolic 110–120; BP diastolic 43–56; PULSE 68–77; RESP 18–21; TEMP 98–98.7; O2SAT 98–100
[2024-09-04 06:14] LABS: BASOPHILS % 0.8 % (0.0-1.0); EOSINOPHILS % 1.2 % (0.0-6.0); LYMPHOCYTES % 11.9 % (18.0-39.1); MONOCYTES % 12.4 % (4.4-11.3); NEUTROPHILS % 72.2 % (38.7-80.0); RED CELL DISTRIBUTION WIDTH 15.4 % (11.7-14.4)
[2024-09-04 06:26] LABS: EST GLOMERULAR FILTRATION RATE 47.0 ML/MIN (>=60)
[2024-09-04] MEDS ORDERED: PROPOFOL IV EMULSION 10 MG/ML 20 ML VIAL ONE (10:21)
[2024-09-04] MEDS ORDERED: LIDOCAINE HCL 2% LOCAL INJ 5 ML SDV VIAL INJ ONE (10:21)
[2024-09-04] MEDS ORDERED: FENTANYL CITRATE/PF 100MCG/2 ML INJ ONE (10:21)
[2024-09-04] MEDS ORDERED: SUCCINYLCHOLINE CHLORIDE 20 MG/ML 10ML VIAL ONE (10:21)
[2024-09-04] MEDS ORDERED: SUGAMMADEX SODIUM 200 MG/2 ML VIAL IV ONE ×2 (10:42→10:46)
[2024-09-04] MEDS ORDERED: HYDROCODONE/APAP 5MG-325MG TAB PO PRN (10:45)
[2024-09-04] MEDS ORDERED: HYDROCODONE/APAP 10MG-325MG TAB PO PRN (11:00)
[2024-09-04] MEDS: ONDANSETRON HCL INJ 2MG/ML 2ML 2 MG/ML VIAL ONE (11:06)
[2024-09-04] MEDS: PROMETHAZINE HCL (IM) 25 MG/ML VIAL IM ONE (11:12)
[2024-09-04] MEDS: Vancomycin IV 1 GM in SODIUM CHLORIDE 0.9% 250ML 250 ML IV SCH (11:53)
[2024-09-04] MEDS: LACTOBACILLUS ACIDOPHILUS CAPSULE PO SCH (11:53)
[2024-09-04] MEDS: PIPERACILLIN/TAZOBACTAM 4.5 GM in SODIUM CHLORIDE 0.9% 100 ML IV SCH (13:42)
[2024-09-04] MEDS: GABAPENTIN 100 MG CAP PO SCH (15:13)
[2024-09-04] MEDS: CELECOXIB 100 MG CAP PO SCH (16:00)
[2024-09-04] MEDS: METHOCARBAMOL 500 MG TAB PO PRN (16:28)
[2024-09-04] MEDS: HYDROMORPHONE 1MG/1ML INJ IV PRN (22:51)
[2024-09-05] VITALS (8 sets, daily range): BP systolic 105–135; BP diastolic 40–55; PULSE 54–72; RESP 18–20; TEMP 97.2–97.6; O2SAT 96–99
[2024-09-05 08:24] LABS: BASOPHILS % 0.5 % (0.0-1.0); EOSINOPHILS % 1.1 % (0.0-6.0); LYMPHOCYTES % 15.2 % (18.0-39.1); MONOCYTES % 7.9 % (4.4-11.3); NEUTROPHILS % 71.9 % (38.7-80.0); RED CELL DISTRIBUTION WIDTH 15.6 % (11.7-14.4)
[2024-09-05 08:57] LABS: EST GLOMERULAR FILTRATION RATE 45.0 ML/MIN (>=60)
[2024-09-05] MEDS: ONDANSETRON HCL INJ 2MG/ML 2ML 2 MG/ML VIAL IV PRN (10:08)
[2024-09-05] MEDS: ENOXAPARIN SOD INJ 40 MG/0.4 ML SYR SC SCH (16:37)
[2024-09-06] VITALS (7 sets, daily range): BP systolic 102–148; BP diastolic 51–64; PULSE 68–79; RESP 19–20; TEMP 97.6–97.9; O2SAT 96–100
[2024-09-06 16:03] LABS: % IRON SATURATION 39.0 % (15-50)
[2024-09-06] MEDS: HYDROMORPHONE 1MG/1ML INJ IV PRN (18:08)
[2024-09-06 20:05] LABS: LACTATE DEHYDROGENASE 214.0 IU/L (125-220)
[2024-09-07] VITALS (9 sets, daily range): BP systolic 99–143; BP diastolic 46–57; PULSE 63–73; RESP 16–21; TEMP 97.6–98.5; O2SAT 97–100
[2024-09-07] MEDS: OXYCODONE/ACETAMINOPHEN 5-325 1 EACH TABLET PO PRN (05:21)
[2024-09-07 06:27] LABS: BASOPHILS % 0.3 % (0.0-1.0); EOSINOPHILS % 1.7 % (0.0-6.0); LYMPHOCYTES % 11.7 % (18.0-39.1); MONOCYTES % 6.8 % (4.4-11.3); NEUTROPHILS % 75.9 % (38.7-80.0); RED CELL DISTRIBUTION WIDTH 15.9 % (11.7-14.4)
[2024-09-07 06:55] LABS: EST GLOMERULAR FILTRATION RATE 38.0 ML/MIN (>=60)
[2024-09-07] MEDS: CYANOCOBALAMIN 1,000 MCG TAB PO SCH (12:35)
[2024-09-07] MEDS: HYDROMORPHONE 2MG/ML IV PRN (15:35)
[2024-09-07] MEDS: CEFTRIAXONE 2 GM in SODIUM CHLORIDE 0.9% 100 ML IV SCH (22:08)
[2024-09-08] VITALS (7 sets, daily range): BP systolic 108–143; BP diastolic 42–55; PULSE 68–76; RESP 18–20; TEMP 97.3–98.3; O2SAT 95–99
[2024-09-08] MEDS ORDERED: Vancomycin IV 1 GM in SODIUM CHLORIDE 0.9% 250ML 250 ML IV SCH (06:00)
[2024-09-08] MEDS: METRONIDAZOLE 500MG/NS 100ML 100 ML IV SCH (13:07)
[2024-09-09] VITALS (9 sets, daily range): BP systolic 108–132; BP diastolic 41–61; PULSE 68–72; RESP 18–20; TEMP 97.5–98.1; O2SAT 95–99
[2024-09-09] MEDS ORDERED: PROPOFOL IV EMULSION 10 MG/ML 20 ML VIAL ONE (12:19)
[2024-09-09] MEDS ORDERED: ROCURONIUM BROMIDE 2 ML IV ONE (12:19)
[2024-09-09] MEDS ORDERED: LIDOCAINE HCL 2% LOCAL INJ 5 ML SDV VIAL INJ ONE (12:19)
[2024-09-09] MEDS ORDERED: FENTANYL CITRATE/PF 100MCG/2 ML INJ ONE (12:20)
[2024-09-09] MEDS ORDERED: SUGAMMADEX SODIUM 200 MG/2 ML VIAL IV ONE (13:02)
[2024-09-09] MEDS ORDERED: DEXAMETHASONE SOD PHOS INJ 4 MG/ML SDV ONE (13:02)
[2024-09-09] MEDS ORDERED: ONDANSETRON HCL INJ 2MG/ML 2ML 2 MG/ML VIAL ONE (13:02)
[2024-09-09] MEDS: HYDROMORPHONE 1MG/1ML INJ IV PRN (19:51)
[2024-09-10 03:15] VITALS: BP 114/42; PULSE 68; RESP 18; TEMP 98.2; O2SAT 99
[2024-09-10 08:19] VITALS: BP 114/57; PULSE 64; RESP 18; TEMP 97.2; O2SAT 99
[2024-09-10 08:40] VITALS: BP 132/46; PULSE 70; RESP 18; TEMP 97.2; O2SAT 98
[2024-09-10 13:00] VITALS: BP 113/43; PULSE 68; RESP 18; TEMP 97.4; O2SAT 97
[2024-09-10 15:54] VITALS: BP 133/44; PULSE 68; RESP 18; TEMP 97.3; O2SAT 99
[2024-09-10 20:00] VITALS: BP 132/50; PULSE 63; RESP 20; TEMP 97.7; O2SAT 100
[2024-09-11] VITALS (8 sets, daily range): BP systolic 123–151; BP diastolic 51–77; PULSE 63–67; RESP 18–20; TEMP 97.4–97.8; O2SAT 99–100
[2024-09-11] MEDS ORDERED: MAGNESIUM HYDROXIDE 30 ML UDC PO PRN (11:00)
[2024-09-11] MEDS: SENNA-S TABLET PO SCH (16:41)
[2024-09-12] VITALS (7 sets, daily range): BP systolic 121–153; BP diastolic 52–75; PULSE 64–70; RESP 18–20; TEMP 97.5–98.9; O2SAT 98–100
[2024-09-12 08:00] LABS: BASOPHILS % 0.5 % (0.0-1.0); EOSINOPHILS % 1.8 % (0.0-6.0); LYMPHOCYTES % 15.2 % (18.0-39.1); MONOCYTES % 8.6 % (4.4-11.3); NEUTROPHILS % 68.9 % (38.7-80.0); RED CELL DISTRIBUTION WIDTH 17.1 % (11.7-14.4)
[2024-09-12 08:25] LABS: EST GLOMERULAR FILTRATION RATE 58.0 ML/MIN (>=60)
[2024-09-12] MEDS: PANTOPRAZOLE SOD 40 MG TABEC PO SCH (09:10)
[2024-09-13] VITALS (8 sets, daily range): BP systolic 111–151; BP diastolic 53–80; PULSE 69–72; RESP 18–20; TEMP 97.4–98.1; O2SAT 95–99
[2024-09-13] MEDS: DEXTROSE 5%/0.45% SOD CHL 1,000 ML IV SCH (06:25)
[2024-09-14] VITALS (8 sets, daily range): BP systolic 100–149; BP diastolic 44–60; PULSE 69–76; RESP 18–20; TEMP 97.3–97.7; O2SAT 98–100
[2024-09-14] MEDS: OXYCODONE/ACETAMINOPHEN 5-325 1 EACH TABLET PO PRN (03:31)
[2024-09-14] MEDS: HYDROMORPHONE 1MG/1ML INJ IV PRN (10:58)
[2024-09-15] VITALS (8 sets, daily range): BP systolic 118–138; BP diastolic 51–62; PULSE 69–76; RESP 16–20; TEMP 97.2–98.3; O2SAT 96–99
[2024-09-15 06:05] LABS: BASOPHILS % 0.4 % (0.0-1.0); EOSINOPHILS % 2.7 % (0.0-6.0); LYMPHOCYTES % 10.8 % (18.0-39.1); MONOCYTES % 8.9 % (4.4-11.3); NEUTROPHILS % 74.8 % (38.7-80.0); RED CELL DISTRIBUTION WIDTH 18.0 % (11.7-14.4)
[2024-09-15 06:36] LABS: EST GLOMERULAR FILTRATION RATE 66 ML/MIN (>=60)
[2024-09-15 07:01] LABS: PHOSPHORUS 2.0 MG/DL (2.3-4.7)
[2024-09-16] VITALS (7 sets, daily range): BP systolic 113–146; BP diastolic 53–68; PULSE 70–80; RESP 19–20; TEMP 98–98.8; O2SAT 96–100
[2024-09-16] MEDS: CHLORASEPTIC SPRAY 177 ML BTL MM PRN (16:50)
[2024-09-17] VITALS (7 sets, daily range): BP systolic 108–148; BP diastolic 51–98; PULSE 72–88; RESP 17–20; TEMP 97.3–97.9; O2SAT 96–100
[2024-09-17 06:12] LABS: BASOPHILS % 0.9 % (0.0-1.0); EOSINOPHILS % 4.1 % (0.0-6.0); LYMPHOCYTES % 10.1 % (18.0-39.1); MONOCYTES % 9.0 % (4.4-11.3); NEUTROPHILS % 74.2 % (38.7-80.0); RED CELL DISTRIBUTION WIDTH 18.6 % (11.7-14.4)
[2024-09-17 07:02] LABS: EST GLOMERULAR FILTRATION RATE 56.0 ML/MIN (>=60)
[2024-09-17] MEDS ORDERED: OXYCODONE/ACETAMINOPHEN 5-325 1 EACH TABLET PO PRN (09:45)
[2024-09-17] MEDS: ONDANSETRON HCL INJ 2MG/ML 2ML 2 MG/ML VIAL IV PRN (10:54)
[2024-09-17] MEDS: METOCLOPRAMIDE HCL 10 MG TAB PO SCH (11:30)
[2024-09-17] MEDS: METRONIDAZOLE 500MG/NS 100ML 100 ML IV SCH (14:21)
[2024-09-17] MEDS: CEFTRIAXONE 2 GM in SODIUM CHLORIDE 0.9% 100 ML IV SCH (20:27)
[2024-09-18] VITALS (8 sets, daily range): BP systolic 104–142; BP diastolic 51–79; PULSE 71–79; RESP 16–20; TEMP 97.1–98.3; O2SAT 97–99
[2024-09-19] VITALS (7 sets, daily range): BP systolic 116–138; BP diastolic 51–61; PULSE 73–81; RESP 16–20; TEMP 97.5–98.2; O2SAT 95–99
[2024-09-19] MEDS: HYDROMORPHONE 2MG/ML IV PRN (17:27)
[2024-09-20] VITALS (8 sets, daily range): BP systolic 115–139; BP diastolic 50–64; PULSE 73–84; RESP 17–20; TEMP 97.5–98.3; O2SAT 96–98
[2024-09-20 06:31] LABS: BASOPHILS % 0.6 % (0.0-1.0); EOSINOPHILS % 4.9 % (0.0-6.0); LYMPHOCYTES % 11.7 % (18.0-39.1); MONOCYTES % 8.6 % (4.4-11.3); NEUTROPHILS % 73.4 % (38.7-80.0); RED CELL DISTRIBUTION WIDTH 18.9 % (11.7-14.4)
[2024-09-20 06:59] LABS: EST GLOMERULAR FILTRATION RATE 43 ML/MIN (>=60)
[2024-09-20] MEDS: CITRATE OF MAGNESIA 300ML BOTTLE PO ONE (09:10)
[2024-09-20] MEDS: NEOMYCIN SULFATE 500 MG TAB PO SCH (11:46)
[2024-09-20] MEDS: METRONIDAZOLE 500 MG TAB PO SCH (11:46)
[2024-09-20] MEDS: SODIUM CHLORIDE 0.9% 250ML 250 ML ONE (18:27)
[2024-09-20] MEDS: PERIPHERAL TPN FORMULA 1 BAG IV SCH (20:43)
[2024-09-21] VITALS (9 sets, daily range): BP systolic 111–134; BP diastolic 53–82; PULSE 79–94; RESP 18–20; TEMP 97.3–97.8; O2SAT 96–100
[2024-09-21 06:01] LABS: BASOPHILS % 0.9 % (0.0-1.0); EOSINOPHILS % 4.5 % (0.0-6.0); LYMPHOCYTES % 14.5 % (18.0-39.1); MONOCYTES % 12.7 % (4.4-11.3); NEUTROPHILS % 65.8 % (38.7-80.0); RED CELL DISTRIBUTION WIDTH 18.8 % (11.7-14.4)
[2024-09-21 06:36] LABS: EST GLOMERULAR FILTRATION RATE 41 ML/MIN (>=60)
[2024-09-21 06:38] LABS: PHOSPHORUS 2.3 MG/DL (2.3-4.7)
[2024-09-21] MEDS ORDERED: FENTANYL CITRATE/PF 100MCG/2 ML INJ ONE (08:19)
[2024-09-21] MEDS ORDERED: LIDOCAINE HCL 2% LOCAL INJ 5 ML SDV VIAL INJ ONE (08:19)
[2024-09-21] MEDS ORDERED: PROPOFOL IV EMULSION 10 MG/ML 20 ML VIAL ONE (08:19)
[2024-09-21] MEDS ORDERED: ROCURONIUM BROMIDE 1 ML IV ONE ×2 (08:19→10:45)
[2024-09-21] MEDS ORDERED: BUPIVACAINE 0.25% 30ML SDV ONE ×2 (08:32→08:35)
[2024-09-21] MEDS ORDERED: EPHEDRINE SULFATE INJ 50 MG/ML VIAL ONE (09:08)
[2024-09-21] MEDS: BUPIVACAINE LIPOSOME/PF 266 MG/20 ML IJ ONE (09:20)
[2024-09-21] MEDS: CEFEPIME HCL 1 GM VIAL ONE (09:20)
[2024-09-21] MEDS ORDERED: DEXAMETHASONE SOD PHOS INJ 4 MG/ML SDV ONE (10:02)
[2024-09-21] MEDS ORDERED: ONDANSETRON HCL INJ 2MG/ML 2ML 2 MG/ML VIAL ONE (10:02)
[2024-09-21] MEDS ORDERED: CEFTRIAXONE 1 GM VIAL ONE (10:45)
[2024-09-21] MEDS ORDERED: SUGAMMADEX SODIUM 200 MG/2 ML VIAL IV ONE (11:23)
[2024-09-21] MEDS ORDERED: DIPHENHYDRAMINE HCL 25 MG CAP PO PRN (12:00)
[2024-09-21] MEDS ORDERED: NALOXONE HCL INJ 0.4 MG/ML AMP IV PRN (12:00)
[2024-09-21] MEDS ORDERED: ACETAMINOPHEN 1000 MG/100 ML IV PRN (12:00)
[2024-09-21] MEDS ORDERED: KETOROLAC TROMETHAMINE 30 MG/ML VIAL IV PRN (12:00)
[2024-09-21] MEDS ORDERED: HYDROMORPHONE 0.2MG/ML-SOD CHL 30ML PCA SYRINGE IV PRN (12:00)
[2024-09-21] MEDS: ONDANSETRON HCL INJ 2MG/ML 2ML 2 MG/ML VIAL ONE (12:22)
[2024-09-21] MEDS: HYDROMORPHONE 0.2MG/ML-SOD CHL 30ML PCA SYRINGE IV ONE (12:35)
[2024-09-21] MEDS: SODIUM CHLORIDE 0.9% 250ML IRRIG IR SCH (15:01)
[2024-09-21] MEDS: DEXTROSE 5%/LACTATED RINGERS 1,000 ML IV SCH (22:14)
[2024-09-22] VITALS (7 sets, daily range): BP systolic 104–130; BP diastolic 61–71; PULSE 89–104; RESP 17–20; TEMP 97.3–98.1; O2SAT 93–100
[2024-09-22] MEDS: HYDROMORPHONE 0.2MG/ML-SOD CHL 30ML PCA SYRINGE IV PRN (03:27)
[2024-09-22 05:54] LABS: BASOPHILS % 0.6 % (0.0-1.0); EOSINOPHILS % 0.8 % (0.0-6.0); LYMPHOCYTES % 10.4 % (18.0-39.1); MONOCYTES % 13.0 % (4.4-11.3); NEUTROPHILS % 74.5 % (38.7-80.0); RED CELL DISTRIBUTION WIDTH 19.4 % (11.7-14.4)
[2024-09-22 06:37] LABS: EST GLOMERULAR FILTRATION RATE 28.0 ML/MIN (>=60)
[2024-09-22] MEDS: METOCLOPRAMIDE HCL 10 MG/2ML VIAL IV SCH (13:00)
[2024-09-22] MEDS: HYDROMORPHONE 1MG/1ML INJ IV PRN (17:47)
[2024-09-22] MEDS: ONDANSETRON HCL INJ 2MG/ML 2ML 2 MG/ML VIAL IV PRN (17:47)
[2024-09-22] MEDS: CENTRAL TPN FORMULA 1 BAG IV SCH (22:24)
[2024-09-23] VITALS (9 sets, daily range): BP systolic 99–141; BP diastolic 47–66; PULSE 80–90; RESP 18–21; TEMP 97.6–98.1; O2SAT 97–100
[2024-09-24] VITALS (8 sets, daily range): BP systolic 125–134; BP diastolic 50–59; PULSE 75–90; RESP 17–21; TEMP 97.7–98.2; O2SAT 96–98
[2024-09-24 06:07] LABS: RED CELL DISTRIBUTION WIDTH 20.3 % (11.7-14.4)
[2024-09-24 08:04] LABS: EST GLOMERULAR FILTRATION RATE 23.0 ML/MIN (>=60)
[2024-09-24] MEDS ORDERED: KETOROLAC TROMETHAMINE 30 MG/ML VIAL IV PRN (08:15)
[2024-09-24 10:39] LABS: EOSINOPHILS % (MANUAL) 2 % (0-7); LYMPHOCYTES % (MANUAL) 13 % (19-48); MONOCYTES % (MANUAL) 9 % (3.4-9.0); NEUTROPHILS % (MANUAL) 76 % (40-74)
[2024-09-24 10:40] LABS: PLATELET ESTIMATE ADEQUATE; PLATELET MORPHOLOGY COMMENT NORMAL
[2024-09-24 14:54] LABS: % IRON SATURATION 16.0 % (15-50); LACTATE DEHYDROGENASE 405.0 IU/L (125-220)
[2024-09-24] MEDS: ENOXAPARIN 30 MG/0.3 ML SYR SC SCH (16:40)
[2024-09-25] VITALS (10 sets, daily range): BP systolic 124–153; BP diastolic 62–83; PULSE 78–98; RESP 16–22; TEMP 97.4–98.2; O2SAT 95–100
[2024-09-25 06:48] LABS: EST GLOMERULAR FILTRATION RATE 22.0 ML/MIN (>=60); PHOSPHORUS 2.8 MG/DL (2.3-4.7)
[2024-09-25] MEDS: ALBUTEROL/IPRATROPIUM 3 ML NEB NEB SCH (12:48)
[2024-09-25] MEDS: ALBUTEROL/IPRATROPIUM 3 ML NEB ONE (14:30)
[2024-09-26] VITALS (15 sets, daily range): BP systolic 130–146; BP diastolic 50–94; PULSE 75–95; RESP 16–20; TEMP 97.5–98.2; O2SAT 95–100
[2024-09-26 07:42] LABS: RED CELL DISTRIBUTION WIDTH 20.5 % (11.7-14.4)
[2024-09-26] MEDS: FUROSEMIDE INJ 10 MG/ML 4 ML VIAL IV ONE (09:42)
[2024-09-26 10:36] LABS: EST GLOMERULAR FILTRATION RATE 22.0 ML/MIN (>=60)
[2024-09-26 11:22] LABS: BAND NEUTROPHILS % (MANUAL) 16 %; BASOPHILS % (MANUAL) 1 % (0-1.5); EOSINOPHILS % (MANUAL) 6 % (0-7); LYMPHOCYTES % (MANUAL) 7 % (19-48); MONOCYTES % (MANUAL) 9 % (3.4-9.0); MYELOCYTES % (MANUAL) 1 % (0-0); NEUTROPHILS % (MANUAL) 60 % (40-74); PLATELET ESTIMATE ADEQUATE; PLATELET MORPHOLOGY COMMENT NORMAL
[2024-09-26] MEDS: METRONIDAZOLE 500MG/NS 100ML 100 ML IV SCH (14:38)
[2024-09-26] MEDS: HYDROMORPHONE 1MG/1ML INJ IV PRN (15:37)
[2024-09-26] MEDS: HYDROCODONE/APAP 7.5MG-325MG 1 EA TAB PO PRN (16:48)
[2024-09-27] VITALS (11 sets, daily range): BP systolic 136–158; BP diastolic 60–73; PULSE 81–98; RESP 17–22; TEMP 97.5–98; O2SAT 95–100
[2024-09-27] MEDS: CENTRAL TPN FORMULA 1 BAG IV SCH (20:13)
[2024-09-28] VITALS (11 sets, daily range): BP systolic 155–176; BP diastolic 63–85; PULSE 85–95; RESP 18–24; TEMP 97.4–97.9; O2SAT 95–99
[2024-09-28] MEDS: DEXTROSE 10% 1,000 ML IV SCH (22:23)
[2024-09-28] MEDS: SODIUM CHLORIDE 0.9% 250ML 250 ML ONE (22:57)
[2024-09-29] VITALS (17 sets, daily range): BP systolic 110–178; BP diastolic 56–72; PULSE 80–98; RESP 14–24; TEMP 97–98.6; O2SAT 94–100
[2024-09-29 05:34] LABS: BASOPHILS % 0.5 % (0.0-1.0); EOSINOPHILS % 2.4 % (0.0-6.0); LYMPHOCYTES % 12.0 % (18.0-39.1); MONOCYTES % 12.8 % (4.4-11.3); NEUTROPHILS % 66.4 % (38.7-80.0); RED CELL DISTRIBUTION WIDTH 19.3 % (11.7-14.4)
[2024-09-29 06:04] LABS: EST GLOMERULAR FILTRATION RATE 29.0 ML/MIN (>=60)
[2024-09-29 06:35] LABS: PHOSPHORUS 2.5 MG/DL (2.3-4.7)
[2024-09-29] MEDS: FUROSEMIDE INJ 10 MG/ML 4 ML VIAL IV ONE (09:39)
[2024-09-29] MEDS: SOD POLYSTYRENE SULFONATE SUSP 15 GM/60 ML BTL PO ONE (15:02)
[2024-09-29 15:54] LABS: LEUKOCYTE ESTERASE ,URINE MODERATE (NEGATIVE); PROTEIN,URINE DIPSTICK 1+ (NEGATIVE); URINE UROBILINOGEN 0.2 mg/dL (0.2 - 1)
[2024-09-29 16:01] LABS: EPITHELIAL CELLS,URINE RARE /LPF; YEAST,URINE MANY
[2024-09-29 16:12] LABS: CREATININE,URINE RANDOM 11.82 mg/dL (47-110); TOTAL PROTEIN, URINE 12.2 mg/dL (1-14)
[2024-09-29] MEDS: ENOXAPARIN 30 MG/0.3 ML SYR SC SCH (17:04)
[2024-09-30] VITALS (12 sets, daily range): BP systolic 116–130; BP diastolic 49–65; PULSE 82–96; RESP 16–20; TEMP 97.5–98.6; O2SAT 96–100
[2024-09-30 05:50] LABS: BASOPHILS % 0.4 % (0.0-1.0); EOSINOPHILS % 2.2 % (0.0-6.0); LYMPHOCYTES % 16.2 % (18.0-39.1); MONOCYTES % 13.8 % (4.4-11.3); NEUTROPHILS % 63.0 % (38.7-80.0); RED CELL DISTRIBUTION WIDTH 19.1 % (11.7-14.4)
[2024-09-30 06:34] LABS: EST GLOMERULAR FILTRATION RATE 26.0 ML/MIN (>=60)
[2024-09-30 06:50] LABS: PHOSPHORUS 2.6 MG/DL (2.3-4.7)
[2024-09-30] MEDS: FUROSEMIDE INJ 10 MG/ML 4 ML VIAL IV ONE (18:53)
[2024-10-01] VITALS (11 sets, daily range): BP systolic 105–133; BP diastolic 44–56; PULSE 80–95; RESP 18–20; TEMP 98.6–99.3; O2SAT 96–100
[2024-10-01 07:00] LABS: EST GLOMERULAR FILTRATION RATE 22.0 ML/MIN (>=60)
[2024-10-01] MEDS: NYSTATIN 15 GM POWDER UD BTL TOP SCH (17:05)
[2024-10-01] MEDS: FUROSEMIDE INJ 10 MG/ML 4 ML VIAL IV ONE (18:39)
[2024-10-02] VITALS (10 sets, daily range): BP systolic 115–138; BP diastolic 47–69; PULSE 74–103; RESP 18–20; TEMP 98.1–100.8; O2SAT 92–100
[2024-10-02 05:58] LABS: BASOPHILS % 0.4 % (0.0-1.0); EOSINOPHILS % 2.4 % (0.0-6.0); LYMPHOCYTES % 19.2 % (18.0-39.1); MONOCYTES % 11.2 % (4.4-11.3); NEUTROPHILS % 62.8 % (38.7-80.0); RED CELL DISTRIBUTION WIDTH 19.1 % (11.7-14.4)
[2024-10-02 06:21] LABS: EST GLOMERULAR FILTRATION RATE 20.0 ML/MIN (>=60)
[2024-10-02] MEDS ORDERED: FUROSEMIDE INJ 10 MG/ML 2 ML VIAL IV PRN (11:00)
[2024-10-02] MEDS ORDERED: HYDROMORPHONE 1MG/1ML INJ IV PRN (15:30)
[2024-10-03] VITALS (8 sets, daily range): BP systolic 132–143; BP diastolic 51–81; PULSE 92–98; RESP 19–22; TEMP 97.2–97.7; O2SAT 94–100
[2024-10-03 05:53] LABS: BASOPHILS % 0.5 % (0.0-1.0); EOSINOPHILS % 1.5 % (0.0-6.0); LYMPHOCYTES % 13.4 % (18.0-39.1); MONOCYTES % 8.5 % (4.4-11.3); NEUTROPHILS % 73.2 % (38.7-80.0); RED CELL DISTRIBUTION WIDTH 19.2 % (11.7-14.4)
[2024-10-03 06:16] LABS: EST GLOMERULAR FILTRATION RATE 22.0 ML/MIN (>=60)
[2024-10-04] VITALS (14 sets, daily range): BP systolic 123–149; BP diastolic 54–73; PULSE 68–100; RESP 18–20; TEMP 97.4–99.6; O2SAT 93–100
[2024-10-04 07:05] LABS: EST GLOMERULAR FILTRATION RATE 23.0 ML/MIN (>=60)
[2024-10-04] MEDS: ACETAMINOPHEN 325 MG TAB PO STA (09:47)
[2024-10-04] MEDS: DIPHENHYDRAMINE HCL INJ 50 MG/ML VIAL IV ONE (09:48)
[2024-10-04] MEDS: SODIUM CHLORIDE 0.9% 250ML 250 ML IV ONE (09:48)
[2024-10-05] VITALS (10 sets, daily range): BP systolic 136–180; BP diastolic 58–73; PULSE 90–99; RESP 18–21; TEMP 97.6–98; O2SAT 94–97
[2024-10-05 06:29] LABS: BASOPHILS % 0.4 % (0.0-1.0); EOSINOPHILS % 1.5 % (0.0-6.0); LYMPHOCYTES % 16.9 % (18.0-39.1); MONOCYTES % 10.5 % (4.4-11.3); NEUTROPHILS % 68.0 % (38.7-80.0); RED CELL DISTRIBUTION WIDTH 19.2 % (11.7-14.4)
[2024-10-05 07:17] LABS: PHOSPHORUS 3.1 MG/DL (2.3-4.7)
[2024-10-05 07:24] LABS: EST GLOMERULAR FILTRATION RATE 22.0 ML/MIN (>=60)
[2024-10-05] MEDS: ENOXAPARIN 30 MG/0.3 ML SYR SC SCH (17:37)
[2024-10-06] VITALS (10 sets, daily range): BP systolic 149–178; BP diastolic 55–66; PULSE 68–96; RESP 17–20; TEMP 97.7–98.8; O2SAT 93–97
[2024-10-07] VITALS (7 sets, daily range): BP systolic 142–181; BP diastolic 58–83; PULSE 74–95; RESP 18–21; TEMP 97.3–98.2; O2SAT 94–96
[2024-10-07 06:16] LABS: BASOPHILS % 0.3 % (0.0-1.0); EOSINOPHILS % 1.0 % (0.0-6.0); LYMPHOCYTES % 11.0 % (18.0-39.1); MONOCYTES % 9.6 % (4.4-11.3); NEUTROPHILS % 76.6 % (38.7-80.0); RED CELL DISTRIBUTION WIDTH 18.8 % (11.7-14.4)
[2024-10-07 06:51] LABS: EST GLOMERULAR FILTRATION RATE 23.0 ML/MIN (>=60)
[2024-10-07] MEDS: HYDROCODONE/APAP 7.5MG-325MG 1 EA TAB PO PRN (09:04)
[2024-10-07] MEDS ORDERED: HYDRALAZINE HCL 25 MG TAB PO PRN (10:30)
[2024-10-07] MEDS ORDERED: HYDROCODONE/APAP 7.5MG-325MG 1 EA TAB PO PRN (11:15)
[2024-10-07] MEDS: METOPROLOL TARTRATE 25 MG TAB PO SCH (13:22)
[2024-10-07] MEDS: AMLODIPINE BESYLATE 5 MG TAB PO ONE (13:22)
[2024-10-07] MEDS: HYDROMORPHONE 1MG/1ML INJ IV PRN (21:15)
[2024-10-08] VITALS (8 sets, daily range): BP systolic 137–158; BP diastolic 60–68; PULSE 75–86; RESP 18–20; TEMP 97.4–98.5; O2SAT 95–97
[2024-10-08 06:53] LABS: PHOSPHORUS 3.7 MG/DL (2.3-4.7)
[2024-10-08] MEDS: AMLODIPINE BESYLATE 5 MG TAB PO SCH (12:08)
== END 2024-10-08 18:30 | DRG 907 ==
LOC: ER 10:20 → ERHOLD 10:33 → MED/SURG3 13:20 → MED/SURG2 09-20 16:36
PROVIDERS: ADMIT Internal Medicine; ATTEND Internal Medicine
PROC: 0J980ZZ Drainage of Abdomen Subcutaneous Tissue and Fascia, Open Approach (ICD-10-PCS; 2024-09-04)
PROC: 0WPF0JZ Removal of Synthetic Substitute from Abdominal Wall, Open Approach (ICD-10-PCS; principal; 2024-09-04 10:21)
PROC: 0DQ80ZZ Repair Small Intestine, Open Approach (ICD-10-PCS; 2024-09-09)
PROC: 0WQF0ZZ Repair Abdominal Wall, Open Approach (ICD-10-PCS; 2024-09-09)
PROC: 3E0336Z Introduction of Nutritional Substance into Peripheral Vein, Percutaneous Approach (ICD-10-PCS; 2024-09-20)
PROC: 05HY33Z Insertion of Infusion Device into Upper Vein, Percutaneous Approach (ICD-10-PCS; 2024-09-20)
PROC: 0DBA0ZZ Excision of Jejunum, Open Approach (ICD-10-PCS; 2024-09-21)
PROC: 0DB80ZZ Excision of Small Intestine, Open Approach (ICD-10-PCS; 2024-09-21)
PROC: 0DN80ZZ Release Small Intestine, Open Approach (ICD-10-PCS; 2024-09-21)
PROC: 0WUF0JZ Supplement Abdominal Wall with Synthetic Substitute, Open Approach (ICD-10-PCS; 2024-09-21)
DX: T85.79XA Infection and inflammatory reaction due to other internal prosthetic devices, implants and grafts, initial encounter (principal); J81.0 Acute pulmonary edema; K63.1 Perforation of intestine (nontraumatic); E46 Unspecified protein-calorie malnutrition; L03.311 Cellulitis of abdominal wall; K63.2 Fistula of intestine; N17.9 Acute kidney failure, unspecified; Z68.43 Body mass index [BMI] 50.0-59.9, adult; T81.321A Disruption or dehiscence of closure of internal operation (surgical) wound of abdominal wall muscle or fascia, initial encounter; N18.4 Chronic kidney disease, stage 4 (severe); D62 Acute posthemorrhagic anemia; E66.01 Morbid (severe) obesity due to excess calories; G89.29 Other chronic pain; M79.2 Neuralgia and neuritis, unspecified; R53.81 Other malaise; M54.50 Low back pain, unspecified; M19.90 Unspecified osteoarthritis, unspecified site; D75.839 Thrombocytosis, unspecified; D64.9 Anemia, unspecified; B96.20 Unspecified Escherichia coli [E. coli] as the cause of diseases classified elsewhere; R11.2 Nausea with vomiting, unspecified; F41.8 Other specified anxiety disorders; K66.0 Peritoneal adhesions (postprocedural) (postinfection); D63.1 Anemia in chronic kidney disease; D64.89 Other specified anemias; K43.2 Incisional hernia without obstruction or gangrene; Y83.9 Surgical procedure, unspecified as the cause of abnormal reaction of the patient, or of later complication, without mention of misadventure at the time of the procedure; Y73.3 Surgical instruments, materials and gastroenterology and urology devices (including sutures) associated with adverse incidents; Z85.41 Personal history of malignant neoplasm of cervix uteri; Z88.1 Allergy status to other antibiotic agents; Z88.5 Allergy status to narcotic agent
CPT/HCPCS: 36415; 36568; 36569; 71045; 74018; 74176; 74177; 76770; 80048; 80053; 80202; 81001; 82570; 82607; 82728; 82746; 82948; 83540; 83605; 83615; 83735; 84100; 84156; 84466; 85007; 85025; 85027; 85045; 85610; 85730; 86850; 86900; 86920; 87040; 87071; 87075; 87086; 87186; 87205; 88300; 88304; 88305; 88307; 93005; 94640; 94799; 97605; 99252; 99284; J0330; J0666; J0692; J0696; J1100; J1171; J1335; J1650; J1885; J1938; J2003; J2270; J2405; J2470; J2543; J2550; J2765; J7030; J7050; Q4130; Q9967